=== PATIENT | male | born 1985 | race Caucasian/White ===

== ENCOUNTER 2019-07-08 09:53 | Observation (INO) ==
[2019-07-08] MEDS ORDERED: LABETALOL HCL IV 5 MG/ML 20ML IV STA ×2 (10:37→11:41)
[2019-07-08] MEDS ORDERED: OXYMETAZOLINE 0.05% 30 ML BTL ONE (10:42)
--- NOTE | 2019-07-08 10:44 | Emergency Department Note ---
History of Present Illness General Chief complaint: Hypertension Stated complaint: nose bleed/ [facility] Time Seen by Provider: 07/08/19 10:25 History of Present Illness This is a 34-year-old male that presents to the emergency department accompanied by 2 correctional officers from [facility] where he is currently incarcerated. He presents today over concerns of epistaxis/hypertension. Patient notes that he typically takes lisinopril but has not taken this since 21 June. He states that since the lockdown from [facility] he was unsure about obtaining this medication and therefore was unable to take it. He states that around 3 AM today he began with a headache, and right-sided epistaxis. No known trauma or injury. He also notes some slight blurry vision in the left eye which is chronic but is slightly worsening over the past few days. He denies any current chest pain. Home Medications Home Medications Medication Instructions Recorded Confirmed Type carvedilol 12.5 mg PO BID 07/08/19 07/08/19 History furosemide [Lasix] 80 mg PO DAILY 07/08/19 07/08/19 History insulin NPH isoph U-100 human 12 unit SUBCUT BID 07/08/19 07/08/19 History [Novolin N Flexpen] lisinopril 20 mg PO DAILY 07/08/19 07/08/19 History Allergies Allergy/AdvReac Type Severity Reaction Status Date / Time No Known Allergies Allergy Unverified 07/08/19 11:51 Past Med/Surg History Medical History Abnormal EKG (Acute) CHF (congestive heart failure) Congenital heart anomaly Diabetes mellitus, type II Glaucoma HLD (hyperlipidemia) HTN (hypertension) Psoriasis Surgical History History of cardiac catheterization History of esophagogastroduodenoscopy (EGD) Family History Other Diabetes Hypertension Social History Preferred Language: Pakistani Communication Ability: Effective Video Operator Required: No Beliefs That Will Affect Care: None Current Living Situation: Other Current Living Situation Comment: [facility] Other Information That Helps Us Care for You: No Feels Safe at Home: Yes Safety Concerns: Feels Safe At This Time Smoking Status: Former smoker Do You Dip or Chew Tobacco: No ; Second Hand Exposure: No ; Tobacco Cessation Education Requested by Patient: No Hx Alcohol Use: No Hx Substance Use: Yes substance use type: does not use and crack/cocaine Last Used Substance Other:: Last used 1 year ago Review of Systems A total of 10 systems reviewed and were otherwise negative Physical Exam Vital Signs Vital Signs - 24 hr 07/08/19 11:30 07/08/19 11:45 07/08/19 12:00 Pulse Rate 100 H 107 H 105 H Pulse Rate [Apical] Pulse Rate from SpO2 Sensor 100 H 106 H 105 H Respiratory Rate 21 23 14 Respiratory Effort / Characteristics Respiratory Depth Respiratory Pattern Blood Pressure 160/112 H 146/99 H 170/118 H Blood Pressure [Right Arm] Blood Pressure Mean 125 106 132 Blood Pressure Mean [Right Arm] Pulse Oximetry 96 97 97 Oxygen Delivery Method 07/08/19 12:15 07/08/19 12:30 07/08/19 12:53 Pulse Rate 103 H 102 H 104 H Pulse Rate [Apical] Pulse Rate from SpO2 Sensor 103 H 103 H 105 H Respiratory Rate 20 17 18 Respiratory Effort / Characteristics Respiratory Depth Respiratory Pattern Blood Pressure 143/100 H 151/106 H 153/95 H Blood Pressure [Right Arm] Blood Pressure Mean 106 112 121 Blood Pressure Mean [Right Arm] Pulse Oximetry 96 96 97 Oxygen Delivery Method 07/08/19 13:00 07/08/19 13:10 07/08/19 13:15 Pulse Rate 105 H 105 H Pulse Rate [Apical] 106 H Pulse Rate from SpO2 Sensor 105 H 105 H Respiratory Rate 24 20 17 Respiratory Effort / Characteristics Non-Labored Spontaneous Respiratory Depth Normal Respiratory Pattern Regular Blood Pressure 159/95 H 172/122 H Blood Pressure [Right Arm] 172/122 H Blood Pressure Mean 108 134 Blood Pressure Mean [Right Arm] 138 Pulse Oximetry 97 97 96 Oxygen Delivery Method Room Air 07/08/19 13:27 07/08/19 13:30 Pulse Rate 107 H 108 H Pulse Rate [Apical] Pulse Rate from SpO2 Sensor 107 H 108 H Respiratory Rate 24 23 Respiratory Effort / Characteristics Respiratory Depth Respiratory Pattern Blood Pressure 145/93 H 147/100 H Blood Pressure [Right Arm] Blood Pressure Mean 111 114 Blood Pressure Mean [Right Arm] Pulse Oximetry 98 98 Oxygen Delivery Method VITAL SIGNS - Vital signs and nursing notes were reviewed. Hypertensive, tachycardic. GENERAL -34-year-old male appearing his stated age who is in no acute distress. Communicates well with provider and answers questions appropriately. SKIN - Without rashes. No meningeal or petechial rash. HEAD - NC/AT. EYES - PERRL with EOMI bilaterally. Sclera anicteric. EARS - No deformities of external structures noted on gross examination bilaterally. NOSE - Midline and without cyanosis. There is right-sided epistaxis noted with packing in the right nose with an occlusive cover. There is some blood trickling in the posterior pharynx. No offending vessel is appreciated and upon further inspection this appears to be a posterior bleed. MOUTH/OROPHARYNX - Without perioral cyanosis. Buccal mucosa pink and moist and without leukoplakia. Tongue midline with equal elevation of palate bilaterally. No tonsillar hypertrophy, erythema, or exudates noted. Good dentition noted. NECK - Neck with FROM. No nuchal rigidity. LUNGS - Chest wall symmetric without accessory muscle use, intercostals re tractions, or central cyanosis. Normal vesicular breath sounds CTA B/L. No wheezes, rales, or rhonchi appreciated. CARDIAC - RRR with S1/S2. No murmur, rubs, or gallops appreciated. ABDOMEN - Abdominal contour normal without pulsations or visible masses. BS normoactive all four quadrants. No tenderness, palpable masses, hepatosplenomegaly, or ascites noted. EXTREMITIES - No clubbing or peripheral cyanosis. No pretibial edema present. +5/5 strength noted in UE/LE bilaterally. NEUROLOGIC - Cranial nerves II through XII grossly intact. Sensory intact to light touch throughout. PSYCH - A&Ox3 and cooperates fully with examiner. Pt is very pleasant and interacts well with examiner. An Automated Tonometer was utilized to obtain bilateral orbital pressures. The pressures in the right eye were found to be 14, 16 with an average of 15. The pressures in the left eye were found to be , 15,17 with an average of 16. Patient tolerated the procedure well and no complications were met. Course Administered Medications Acetaminophen (Tylenol) 650 mg PO Q4H PRN PRN Reason: Pain or Fever Stop: 08/07/19 15:09 Last Admin: 07/08/19 21:28 Dose: 650 mg Documented by: [id number] Amoxicillin/Clavulanate Potassium (Augmentin 875mg) 1 tab PO BIDM [facility] Stop: 07/13/19 16:59 Last Admin: 07/09/19 07:55 Dose: 1 tab Documented by: [id number] Admin: 07/08/19 17:18 Dose: 1 tab Documented by: [id number] Carvedilol (Coreg) 12.5 mg PO BID [facility] Stop: 08/07/19 20:59 Last Admin: 07/09/19 07:55 Dose: 12.5 mg Documented by: [id number] Admin: 07/08/19 21:21 Dose: 12.5 mg Documented by: [id number] Furosemide (Lasix) 80 mg PO DAILY [facility] Stop: 08/08/19 08:59 Last Admin: 07/09/19 07:56 Dose: 80 mg Documented by: [id number] Hydromorphone HCl (Dilaudid) 0.5 mg IV Q8H PRN PRN Reason: Severe Pain Stop: 07/22/19 18:05 Last Admin: 07/09/19 04:43 Dose: 0.5 mg Documented by: [id number] Insulin Aspart (Novolog Flexpen) 0 units SC ACHS [facility] Stop: 08/07/19 16:29 Last Admin: 07/09/19 09:08 Dose: Not Given Documented by: [id number] Cosigned by: [id number] Admin: 07/08/19 21:21 Dose: 2 units Documented by: [id number] Cosigned by: [id number] Admin: 07/08/19 17:17 Dose: 8 units Documented by: [id number] Cosigned by: [id number] Insulin Human NPH (Novolin N Nph) 14 units SC BIDM [facility] Stop: 08/07/19 16:59 Last Admin: 07/09/19 09:08 Dose: Not Given Documented by: [id number] Admin: 07/08/19 17:18 Dose: 14 units Documented by: [id number] Cosigned by: [id number] Lisinopril (Zestril) 20 mg PO DAILY [facility] Stop: 08/08/19 08:59 Last Admin: 07/09/19 07:55 Dose: 20 mg Documented by: [id number] Discontinued Medications Amoxicillin/Clavulanate Potassium (Augmentin 875mg) 1 tab PO NOW ONE Stop: 07/08/19 12:39 Last Admin: 07/08/19 13:26 Dose: 1 tab Documented by: [id number] Carvedilol (Coreg) 12.5 mg PO NOW ONE Stop: 07/08/19 13:51 Last Admin: 07/08/19 14:00 Dose: 12.5 mg Documented by: [id number] Furosemide (Lasix) 40 mg PO NOW ONE Stop: 07/08/19 13:51 Last Admin: 07/08/19 14:00 Dose: 40 mg Documented by: [id number] Insulin Aspart (Novolog Flexpen) 0 units SC 0000,0400 PHYLLIS Stop: 07/09/19 04:01 Last Admin: 07/09/19 04:49 Dose: 2 units Documented by: [id number] Cosigned by: [id number] Admin: 07/08/19 23:29 Dose: Not Given Documented by: [id number] Cosigned by: [id number] Insulin Human NPH (Novolin N Nph) 8 units SC ONE ONE Stop: 07/09/19 09:01 Last Admin: 07/09/19 09:09 Dose: 8 units Documented by: [id number] Cosigned by: [id number] Labetalol HCl (Normodyne) 10 mg IV NOW STA Stop: 07/08/19 10:38 Last Admin: 07/08/19 10:56 Dose: 10 mg Documented by: [id number] Cosigned by: [id number] Labetalol HCl (Normodyne) 10 mg IV NOW STA Stop: 07/08/19 11:42 Last Admin: 07/08/19 12:56 Dose: Not Given Documented by: [id number] Lidocaine HCl (Xylocaine 4% Inh Soln) Confirm Administered Dose 4 ml .ROUTE .STK-MED ONE Stop: 07/08/19 11:51 Last Admin: 07/08/19 12:04 Dose: 4 ml Documented by: [id number] Lisinopril (Zestril) 20 mg PO NOW ONE Stop: 07/08/19 13:49 Last Admin: 07/08/19 13:59 Dose: 20 mg Documented by: [id number] Oxymetazoline HCl (Afrin 0.05%) 1 sprays NA NOW ONE Stop: 07/08/19 10:43 Last Admin: 07/08/19 10:56 Dose: 150 sprays Documented by: [id number] Critical Care Time Total Critical Care Time: 35 Patient presents with significant hypertension with associated elevated troponin, headache, abnormal EKG, and epistaxis. I have personally spent about 35 minutes of critical care time in the direct management of this patient. This includes bedside care, interpretation of diagnostic studies, and testing, discussion with consultants, patient, and family members, and other required patient management activities. This 35 minutes is in excess of all separately billable procedures. Medical Decision Making Laboratory Data Result diagrams: 07/09/19 05:28 07/09/19 05:28 Lab Results 07/08/19 07/08/19 07/08/19 Range/Units 10:46 10:46 10:46 WBC 7.90 (4.8-10.8) K/uL RBC 3.80 L (4.7-6.1) M/uL Hgb 11.9 L (14.0-18.0) g/dL Hct 32.8 L (42-52) % MCV 86.3 (80-100) fL MCH 31.3 (25-34) pg MCHC 36.3 H (32-36) g/dL RDW Std Deviation 41.1 (36.4-46.3) fL RDW Coeff of Wendy 13.2 (11.5-14.5) % Plt Count 246 (130-400) K/uL MPV 10.2 (7.4-10.4) fL Immature Gran % (Auto) 0.1 % Neut % (Auto) 71.5 % Lymph % (Auto) 17.8 % Calhoun % (Auto) 8.5 % Eos % (Auto) 1.6 % Baso % (Auto) 0.5 % Immature Gran # (Auto) 0.01 (0.00-0.02) K/uL Neut # (Auto) 5.64 (1.4-6.5) K/uL Lymph # (Auto) 1.41 (1.2-3.4) K/uL [place]oun # (Auto) 0.67 H (0.11-0.59) K/uL Eos # (Auto) 0.13 (0-0.5) K/uL Baso # (Auto) 0.04 (0-0.2) K/uL PT 11.3 (9.0-12.0) Seconds INR 1.1 (0.9-1.1) APTT 25.0 (21.0-31.0) Seconds PTT Ratio 0.9 Sodium 139 (136-145) mmol/L Potassium 4.1 (3.5-5.1) mmol/L Chloride 107 (98-107) mmol/L Carbon Dioxide 25 (21-32) mmol/L Anion Gap 7.0 (3-11) BUN 28 H (7-18) mg/dl Creatinine 1.13 (0.6-1.4) mg/dl Est Cr Clr Drug Dosing 99.0 ml/min Est GFR ( Amer) 98.4 Est GFR (Non-Af Amer) 84.9 BUN/Creatinine Ratio 25.0 H (10-20) Glucose 298 H (70-99) mg/dl Calcium 8.3 L (8.5-10.1) mg/dl Magnesium 1.9 (1.8-2.4) mg/dl Total Bilirubin 0.8 (0.2-1) mg/dl AST 15 (15-37) U/L ALT 21 (12-78) U/L Alkaline Phosphatase 97 (45-117) U/L Troponin I 0.058 H* (0-0.045) ng/ml Total Protein 6.3 L (6.4-8.2) gm/dl Albumin 3.1 L (3.4-5.0) gm/dl Globulin 3.2 (2.5-4.0) gm/dl Albumin/Globulin Ratio 1.0 (0.9-2) TSH 3.790 (0.300-4.500) uIu/ml Urine Color Urine Appearance (Clear) Urine pH (4.5-7.5) Ur Specific [place] (1.000-1.030) Urine Protein (Negative) Urine Glucose (UA) (Negative) Urine Ketones (Negative) Urine Blood (Negative) Urine Nitrite (Negative) Urine Bilirubin (Negative) Urine Urobilinogen (Negative) Ur Leukocyte Esterase (Negative) Urine WBC (Auto) (0-5) /hpf Urine RBC (Auto) (0-4) /hpf U Hyaline Cast (Auto) (0-5) /lpf U Epithel Cells (Auto) (0-5) /lpf Urine Bacteria (Auto) (Negative) 07/08/19 Range/Units 12:51 WBC (4.8-10.8) K/uL RBC (4.7-6.1) M/uL Hgb (14.0-18.0) g/dL Hct (42-52) % MCV (80-100) fL MCH (25-34) pg MCHC (32-36) g/dL RDW Std Deviation (36.4-46.3) fL RDW Coeff of Wendy (11.5-14.5) % Plt Count (130-400) K/uL MPV (7.4-10.4) fL Immature Gran % (Auto) % Neut % (Auto) % Lymph % (Auto) % [place] % (Auto) % Eos % (Auto) % Baso % (Auto) % Immature Gran # (Auto) (0.00-0.02) K/uL Neut # (Auto) (1.4-6.5) K/uL Lymph # (Auto) (1.2-3.4) K/uL [place] # (Auto) (0.11-0.59) K/uL Eos # (Auto) (0-0.5) K/uL Baso # (Auto) (0-0.2) K/uL PT (9.0-12.0) Seconds INR (0.9-1.1) APTT (21.0-31.0) Seconds PTT Ratio Sodium (136-145) mmol/L Potassium (3.5-5.1) mmol/L Chloride (98-107) mmol/L Carbon Dioxide (21-32) mmol/L Anion Gap (3-11) BUN (7-18) mg/dl Creatinine (0.6-1.4) mg/dl Est Cr Clr Drug Dosing ml/min Est GFR ( Amer) Est GFR (Non-Af Amer) BUN/Creatinine Ratio (10-20) Glucose (70-99) mg/dl Calcium (8.5-10.1) mg/dl Magnesium (1.8-2.4) mg/dl Total Bilirubin (0.2-1) mg/dl AST (15-37) U/L ALT (12-78) U/L Alkaline Phosphatase (45-117) U/L Troponin I (0-0.045) ng/ml Total Protein (6.4-8.2) gm/dl Albumin (3.4-5.0) gm/dl Globulin (2.5-4.0) gm/dl Albumin/Globulin Ratio (0.9-2) TSH (0.300-4.500) uIu/ml Urine Color Yellow Urine Appearance Clear (Clear) Urine pH 5.0 (4.5-7.5) Ur Specific [place] 1.042 H (1.000-1.030) Urine Protein 2+ H (Negative) Urine Glucose (UA) 3+ H (Negative) Urine Ketones 1+ H (Negative) Urine Blood Negative (Negative) Urine Nitrite Negative (Negative) Urine Bilirubin Negative (Negative) Urine Urobilinogen Negative (Negative) Ur Leukocyte Esterase Negative (Negative) Urine WBC (Auto) 1-5 (0-5) /hpf Urine RBC (Auto) 0-4 (0-4) /hpf U Hyaline Cast (Auto) 1-5 (0-5) /lpf U Epithel Cells (Auto) 0-5 (0-5) /lpf Urine Bacteria (Auto) Negative (Negative) Imaging Data Radiologist's Impression: XR chest 1V portable CLINICAL HISTORY: 34 years-old Male presenting with htn, headache. TECHNIQUE: Portable upright AP view of the chest was obtained. COMPARISON: None. FINDINGS: Cardiomediastinal silhouette normal. No focal opacity. No large effusion or pneumothorax. Osseous structures normal. Upper abdomen normal. IMPRESSION: 1. No acute cardiopulmonary disease. ACT 112: Negative or not required by law. Electronically signed by: Adrian Phillips M.D. 07/08/2019 11:[address] head/brain wo con CLINICAL HISTORY: 34 years-old Male presenting with headache, htn, epistaxis sin ce 3:00 AM. TECHNIQUE: Multidetector CT imaging of the head was performed without the use of intravenous contrast. IV contrast: None. One or more dose lowering techniques were used consistent with the principles of ALARA (as low as reasonably achievable), including automatic exposure control, mA or kV adjustment to individual patient size, and/or use of iterative reconstruction. COMPARISON: None. CT DOSE (mGy.cm): The estimated cumulative dose is 614.27 mGy.cm. FINDINGS: Sales Analyst topogram: The patient is edentulous. Ventricles and sulci normal in size. No hemorrhage. Brain parenchyma normal in appearance with preserved lynn-white differentiation. No acute territorial infarct. No mass effect or midline shift. No extra-axial fluid collection. Aerated secretions in the right maxillary sinus. These are also noted in the right ethmoid air cells. Calvarium intact. IMPRESSION: 1. No acute intracranial abnormality. 2. Aerated secretions in the right maxillary sinus and right ethmoid air cells may relate to the reported epistaxis or indicate acute sinusitis. ACT 112: Negative or not required by law. Electronically signed by: Adrian Phillips M.D. 07/08/2019 12:46 PM MDM Narrative Patient was seen and evaluated as above in room in room C5. Review was performed of nursing notes and vital signs. After obtaining a thorough history and physical examination the above work up was performed. He presents to us today with epistaxis from the right, as well as hypertension. EKG was obtained on arrival and reveals sinus tachycardia at a rate of [address] and T wave changes but no evidence of STEMI. QTc 469. Patient has no chest pain at this time. In regard to the epistaxis, it was felt that this is likely secondary to the severe hypertension and it would be best to lower the pressure in conjunction with managing the epistaxis. 10 mg of IV labetalol was ordered. He was reevaluated with some improvement. There is no emergent finding on CBC or metabolic panel other than the troponin was elevated at 0.058. Urinalysis does not suggest infection. I did discuss with the patient options of epistaxis treatment and I will note that he continues to have active epistaxis here despite blood pressure management. I discussed indication of the packing and benefit versus risk discussed and it was decided to pursue with right-sided nasal packing with a rapid Rhino. Consent obtained. Given that this was likely a posterior bleed as no source was found on exam and this appeared to be beeding quite deep in the nasal cavity with associated blood noted in the posterior oropharynx a 7.5 cm rapid Rhino was chosen. I did trial a course of Afrin in the affected side as well as a small amount of lidocaine and then the 7.5 similar rapid Rhino was placed after no relief with nose clamp and Afrin. This was able to achieve hemostasis. No complications were noted. No significant pain. This was inflated to 4 cc of air. P.o. Augmentin ordered to help prevent infection. Chest x-ray and CT scan of the head revealed no emergent process. There are some aerated secretions in the right maxillary sinus and ethmoid air cells which are likely from the epistaxis as he has no other symptoms to suggest that of acute sinusitis. I will also note that the CT scan was obtained after nasal packing was placed. Given the patient's troponin elevation and evidence of hypertensive emergency it is felt that further evaluation and management is warranted in the inpatient setting. Please refer to further documentation rega rding his stay. While in the department, I personally reevaluated the patient several times and each time the patient was found to be resting comfortably. Case discussed with the attending physician as well as the hospitalist. Please refer to further documentation regarding his stay. GCS: 15 In the evaluation and treatment of this patient, the following differential diagnoses were considered: Concussion, Contrecoup Injury, Brain Tumor, Depression, Encephalitis, Hypothyroidism, Meningitis, CVA, TIA, Migraine, Cluster Headache, Intracranial Abnormality, Intracranial Hemorrhage, Subdural Hematoma, Subarachnoid Hemorrhage, Hydrocephalus, nasal trauma, fracture, sinusitis, mass, OH, ASC, Dysrhythmia, Angina, Mediastinitis, GERD, Esophagitis, PE, Pneumonia, coronavirus, among others Impression & Plan Hypertensive emergency, Abnormal EKG, Epistaxis, Elevated troponin Discharge Plan Visit Data *Final* Discharge Date/Time: 07/08/19 14:08 Chief Complaint: Hypertension Stated Complaint: nose bleed/ [facility] ED Provider: Vidal Moran ED Midlevel Provider: Yash Cochran Discharge Problem: Hypertensive emergency, Abnormal EKG, Epistaxis, Elevated troponin Patient Disposition: Admitted As Inpatient Condition: Good Discharge Instructions Interventions: ED Discharge Assessment Last Done: 07/08/19 14:08
[2019-07-08 10:58] LABS: Basophils # (auto) 0.04 K/uL (0-0.2); Basophils % (auto) 0.5 %; Eosinophils # (auto) 0.13 K/uL (0-0.5); Eosinophils % (auto) 1.6 %; Hematocrit (blood only) 32.8 % (42-52); Hemoglobin 11.9 g/dL (14.0-18.0); Immature Granulocytes # (auto) 0.01 K/uL (0.00-0.02); Immature Granulocytes % (auto) 0.1 %; Lymphocytes # (auto) 1.41 K/uL (1.2-3.4); Lymphocytes % (auto) 17.8 %; Mean Corpuscular Hemoglobin 31.3 pg (25-34); Mean Corpuscular Hgb Conc 36.3 g/dL (32-36); Mean Corpuscular Volume 86.3 fL (80-100); Mean Platelet Volume 10.2 fL (7.4-10.4); Monocytes # (auto) 0.67 K/uL (0.11-0.59); Monocytes % (auto) 8.5 %; Neutrophils # (auto) 5.64 K/uL (1.4-6.5); Neutrophils % (auto) 71.5 %; Platelet Count 246 K/uL (130-400); RDW Coefficient of Variation 13.2 % (11.5-14.5); RDW Standard Deviation 41.1 fL (36.4-46.3)
--- NOTE | 2019-07-08 11:02 | XRay Report ---
XR chest 1V portable CLINICAL HISTORY: 34 years-old Male presenting with htn, headache. TECHNIQUE: Portable upright AP view of the chest was obtained. COMPARISON: None. FINDINGS: Cardiomediastinal silhouette normal. No focal opacity. No large effusion or pneumothorax. Osseous str uctures normal. Upper abdomen normal. IMPRESSION: 1. No acute cardiopulmonary disease. ACT 112: Negative or not required by law. Electronically signed by: Adrian Phillips M.D. 07/08/2019 11:01 AM
[2019-07-08 11:14] LABS: INR 1.1 (0.9-1.1); Partial Thromboplastin Ratio 0.9; Prothrombin Time 11.3 Seconds (9.0-12.0)
[2019-07-08 11:15] LABS: Albumin Level 3.1 gm/dl (3.4-5.0); Calcium 8.3 mg/dl (8.5-10.1); Est GFR (African American) 98.4; Est GFR (Non-African American) 84.9; Magnesium 1.9 mg/dl (1.8-2.4); Potassium 4.1 mmol/L (3.5-5.1)
[2019-07-08 11:27] LABS: Bilirubin,Total 0.8 mg/dl (0.2-1); Globulin 3.2 gm/dl (2.5-4.0); Thyroid Stimulating Hormone 3.79 uIu/ml (0.300-4.500); Total Protein 6.3 gm/dl (6.4-8.2); Troponin I 0.058 ng/ml (0-0.045)
[2019-07-08] MEDS ORDERED: LIDOCAINE 4% INH SOLN 4 ML BTL ONE (11:50)
--- NOTE | 2019-07-08 12:25 | Electrocardiogram Report ---
Test Reason : Blood Pressure : / mmHG Vent. Rate : 119 BPM Atrial Rate : 119 BPM P-R Int : 140 ms QRS Dur : 072 ms QT Int : 334 ms P-R-T Axes : 024 006 155 degrees QTc Int : 469 ms Poor data quality, interpretation may be adversely affected Sinus tachycardia Abnormal ECG No previous ECGs available Confirmed by Otf Jessica ([id number] on 07/08/2019 12:24:58 PM Referred By: [facility] Confirmed By:Otf Jessica
[2019-07-08] MEDS ORDERED: AMOXICILLIN/CLAVULANATE 875 MG TAB PO ONE (12:38)
--- NOTE | 2019-07-08 12:47 | CT Scan Report ---
CT head/brain wo con CLINICAL HISTORY: 34 years-old Male presenting with headache, htn, epistaxis since 3:00 AM. TECHNIQUE: Multidetector CT imaging of the head was performed without the use of intravenous contrast . IV contrast: None. One or more dose lowering techniques were used consistent with the principles of ALARA (as low as reasonably achievable), including automatic exposure control, mA or kV adjustment t o individual patient size, and/or use of iterative reconstruction. COMPARISON: None. CT DOSE (mGy.cm): The estimated cumulative dose is 614.27 mGy.cm. FINDINGS: Chainer topogram: The patient is edentulous. Ventricles and sulci normal in size. No hemorrhage. Brain parenchyma normal in appearance with preser daniele lynn-white differentiation. No acute territorial infarct. No mass effect or midline shift. No ext ra-axial fluid collection. Aerated secretions in the right maxillary sinus. These are also noted in t he right ethmoid air cells. Calvarium intact. IMPRESSION: 1. No acute intracranial abnormality. 2. Aerated secretions in the right maxillary sinus and right ethmoid air cells may relate to the rep orted epistaxis or indicate acute sinusitis. ACT 112: Negative or not required by law. Electronically signed by: Adrian Phillips M.D. 07/08/2019 12:46 PM
[2019-07-08 13:11] LABS: Appearance Urine Clear (Clear); Bacteria Urine Automated Negative (Negative); Bilirubin Urine Negative (Negative); Blood Urine Negative (Negative); Color Urine Yellow; Epithelial Cell Urine Auto 0-5 /lpf (0-5); Glucose Urine UA 3+ (Negative); Ketones Urine 1+ (Negative); Leukocyte Esterase Urine Negative (Negative); Nitrite Urine Negative (Negative); Protein Urine 2+ (Negative); RBC Urine Automated 0-4 /hpf (0-4); Specific Gravity Urine 1.042 (1.000-1.030); Urobilinogen Urine Negative (Negative)
[2019-07-08] MEDS ORDERED: lisinopriL 20 MG TAB PO ONE (13:48)
[2019-07-08] MEDS ORDERED: carvediloL 12.5 MG TAB PO ONE (13:50)
[2019-07-08] MEDS ORDERED: FUROSEMIDE 40 MG TAB PO ONE (13:50)
--- NOTE | 2019-07-08 13:54 | History & Physical Report ---
Date of Service July 08, 2019 Assessment & Plan (1) Hypertensive emergency: H/O HTN Pt is 34 y/o M with PMH HTN, HLD, insulin-dependent DM II, CHF, congenital heart anomaly, psoriasis, glaucoma presented to ER from [facility] for epistaxis and HTN. Not been taking BP meds x 1 month. Today 3 AM started with right-sided epistaxis. Also c/o dull MONTOYA. Has chronic blurry vision to left eye however feels increased blurriness to left eye this morning. Denies chest pain, dizziness, syncope, paresthesias. In ER pt afebrile, P: 123 down to 105, R: 24 down to 14, BP: 192/137 down to 145/93, 97% on RA. Troponin: 0.058, EKG sinus tachycardia, t wave inversion lateral leads (no prior for comparison) CT head: No acute intracranial abnormality. CXR: No acute cardiopulmonary disease. -In ER given labetalol 10mg IV -Pt has not been taking BP meds x 1 month -Restart lisinopril, carvedilol, lasix -Monitor on tele -Monitor BP closely -BMP in am (2) Epistaxis: CT Head: Aerated secretions in the right maxillary sinus and right ethmoid air cells may relate to the reported epistaxis or indicate acute sinusitis. H/H: 11.9/32, Plt: 246, normal co-ags -In ER rapid rhino placed to right nare with control of bleeding at this time -In ER started on Augmentin -Will continue Augmentin for prophylaxis -Repeat CBC tonight -ENT consult for assistance with rapid rhino and removal when appropriated (3) Abnormal EKG: EKG sinus tachycardia, t wave inversion lateral leads (no prior for comparison) Pt reports h/o abnormal EKG -Trend troponin (4) Diabetes mellitus, type II: Pt reports has not been compliant with -Hold home insulin -Novolog, Lantus sliding scale per protocol -A1c in AM (5) CHF (congestive heart failure): Reported h/o CHF Does not appear volume overloaded at this time -Continue lasix DVT Prophylaxis -Low risk - ambulate Full Code as per discussion with pt Follows with Medical at [facility] for routine care Pt was seen and care coordinated with Dr Luo. See addendum History of Present Illness Chief Complaint: Epistaxis, elevated BP Primary Care Provider: [facility] Pt is 34 y/o M with PMH HTN, HLD, insulin-dependent DM II, CHF, congenital heart anomaly, psoriasis, glaucoma presented to ER from [facility] for epistaxis and HTN. Patient has not been taking his BP meds for the past month because "I've been lazy and not feel like it". Reports he has been using his insulin, however he reports he has not been taking the amounts that the medical team at [facility] have been recommending. BSG is been running 190 to low 100s. Patient states this morning at 3 AM started with right-sided epistaxis that was continuous. Patient states this morning around 6 AM developed dull headache. He reports chronic blurry vision to left eye however feels increased blurriness to left eye this morning. Patient states this morning felt a little shortness of breath. Denies chest pain, dizziness, syncope, paresthesias. Reports last week had epistaxis that resolved with pressure. Denies picking nose or any nasal or facial injury. Denies fever/chills, diaphoresis, N/V/D/C, neck pain, CP, orthopnea, palpitations, cough, sore throat, choking, otalgia, rhinorrhea, abdominal pain, weakness, extremity weakness, extremity edema, rashes, urinary symptoms. Allergies Allergy/AdvReac Type Severity Reaction Status Date / Time No Known Allergies Allergy Unverified 07/08/19 11:51 Home Medications Home Medications Medication Instructions Recorded Confirmed Type carvedilol 12.5 mg PO BID 07/08/19 07/08/19 History furosemide [Lasix] 80 mg PO DAILY 07/08/19 07/08/19 History insulin NPH isoph U-100 human 12 unit SUBCUT BID 07/08/19 07/08/19 History [Novolin N Flexpen] lisinopril 20 mg PO DAILY 07/08/19 07/08/19 History Past Med/Surg History Medical History (Updated 07/08/19 @ 14:01 by Rosa Gonsales PA-C) Abnormal EKG CHF (congestive heart failure) Congenital heart anomaly Diabetes mellitus, type II Glaucoma HLD (hyperlipidemia) HTN (hypertension) Psoriasis Surgical History (Updated 07/08/19 @ 13:44 by Rosa Gonsales PA-C) History of cardiac catheterization History of esophagogastroduodenoscopy (EGD) Family History (Updated 07/08/19 @ 13:54 by Rosa Gonsales PA-C) Other Diabetes Hypertension Social History (Updated 07/08/19 @ 13:55 by Rosa Gonsales PA-C) Preferred Language: Italian Communication Ability: Effective Hot Press Operator Required: No Beliefs That Will Affect Care: None Current Living Situation: Other Current Living Situation Comment: [facility] Other Information That Helps Us Care for You: No Feels Safe at Home: Yes Safety Concerns: Feels Safe At This Time Smoking Status: Former smoker Do You Dip or Chew Tobacco: No ; Second Hand Exposure: No ; Tobacco Cessation Education Requested by Patient: No Hx Alcohol Use: No Hx Substance Use: Yes substance use type: does not use and crack/cocaine Last Used Substance Other:: Last used 1 year ago Review of Systems Review of Systems: All systems reviewed & are unremarkable except as noted in HPI & below Physical Exam Physical Exam: General: no distress, WDWN Head: normocephalic, atraumatic Eyes: PERRL, EOM's intact, conjunctiva non-injected, anicteric ENT: normal inspection external ears, Right nare with rapid rhino in place with no active bleeding surrounding, left nare without epistaxis, posterior pharynx with scant red blood, mucous membranes moist Neck: supple, trachea midline Lungs: clear, no respiratory distress, no wheezing/rhonchi/rales CV: RRR, no murmur, no pretibial edema Abd: normal BS, soft, non-tender Ext: no cyanosis, no calf tenderness Neuro: A&O x 3, no focal deficits noted, normal affect Skin: warm, dry; +scattered pink plaques to arms, legs, back, chest Results & Data Results & Data ([facility]) Vital Signs (Past 12 Hours) Vital Signs Temp Pulse Pulse Resp BP BP Pulse Ox 07/08/19 13:30 108 H 23 147/100 H 98 07/08/19 13:27 107 H 24 145/93 H 98 07/08/19 13:15 105 H 17 172/122 H 96 07/08/19 13:10 106 H 20 172/122 H 97 07/08/19 13:00 105 H 24 159/95 H 97 07/08/19 12:53 104 H 18 153/95 H 97 07/08/19 12:30 102 H 17 151/106 H 96 07/08/19 12:15 103 H 20 143/100 H 07/08/19 12:00 105 H 14 170/118 H 97 07/08/19 11:45 107 H 23 146/99 H 07/08/19 11:30 100 H 21 160/112 H 07/08/19 11:15 100 H 20 161/116 H 97 07/08/19 11:08 101 H 20 157/106 H 07/08/19 11:02 102 H 17 96 07/08/19 11:01 107 H 22 157/106 H 07/08/19 11:00 118 H 21 163/114 H 07/08/19 10:58 121 H 23 182/126 H 07/08/19 10:51 124 H 20 96 07/08/19 10:30 122 H 20 178/120 H 96 07/08/19 10:04 37.4 C 118 H 20 192/137 H 96 07/08/19 10:03 123 H 24 192/137 H 97 Laboratory Results Short CBC 07/08/19 Range/Units 10:46 WBC 7.90 (4.8-10.8) K/uL Hgb 11.9 L (14.0-18.0) g/dL Hct 32.8 L (42-52) % Plt Count 246 (130-400) K/uL BMP 07/08/19 10:46 Sodium 139 Potassium 4.1 Chloride 107 Carbon Dioxide 25 BUN 28 H Creatinine 1.13 Glucose 298 H Calcium 8.3 L Cardiac Enzymes 07/08/19 Range/Units 10:46 Troponin I 0.058 H* (0-0.045) ng/ml Liver Function 07/08/19 Range/Units 10:46 Total Bilirubin 0.8 (0.2-1) mg/dl AST 15 (15-37) U/L ALT 21 (12-78) U/L Alkaline Phosphatase 97 (45-117) U/L Albumin 3.1 L (3.4-5.0) gm/dl Urine 07/08/19 Range/Units 12:51 Urine Color Yellow Urine Appearance Clear (Clear) Urine pH 5.0 (4.5-7.5) Ur Specific [place] 1.042 H (1.000-1.030) Urine Protein 2+ H (Negative) Urine Glucose (UA) 3+ H (Negative) Diagnostic Findings CXR: IMPRESSION: 1. No acute cardiopulmonary disease. CT HEAD: IMPRESSION: 1. No acute intracranial abnormality. 2. Aerated secretions in the right maxillary sinus and right ethmoid air cells may relate to the reported epistaxis or indicate acute sinusitis. ECG Additional Comments: poor tracing, sinus tachycardia, rate 119, t wave inversion lateral Supervising Physician Co-Signing Physician Notes I, Dr. Nicholas Luo, have seen and examined the patient with physician miller head assistant wet process and would like to comment that On exam: General: no acute distress Nose: right nare with packing Eyes: ocular movements intact, patient reports chronic left eye blurred vision likely from diabetic retinopathy Heart: regular rate Lungs: clear to auscultation bilaterally Abdomen: soft, nontender, positive bowel sounds Extremities: no edema Epistaxis Diabetes Mellitus Type 2 with complications of Diabetic Retinopathy Abnormal EKG History of chronic congestive heart failure -right nare packed in ED, trend CBC, will get ENT consult to follow the patient and ultimately to take out packing when ready as [facility] is from [facility] -patient reports that reports chronic left eye blurred vision have worsened over time as a consequence of diabetes and that in the past because of outpatient diet, his weights have fluctuated -pharmacological consult to manage the diabetes and then perhaps give estimation on discharge insulin dosing -no chest pain symptoms, there are T wave inversions on lateral leads, trend troponins, breathing on room air, no respiratory distress, no clinical signs of fluid overload My colleague Dr. Torres will be the hospitalist for the patient starting on 07/09/2019
[2019-07-08] MEDS ORDERED: CARBOHYDRATES FOR HYPOGLYCEMIA PO PRN (15:10)
[2019-07-08] MEDS ORDERED: GLUCOSE 40% GEL 15 GM TUBE PO PRN (15:10)
[2019-07-08] MEDS ORDERED: GLUCOSE 10 TABS/TUBE PO PRN (15:10)
[2019-07-08] MEDS ORDERED: GLUCAGON FOR INJ 1 MG VIAL SQ PRN (15:10)
[2019-07-08] MEDS ORDERED: DEXTROSE 50% 50 ML SYRINGE IV PRN (15:10)
[2019-07-08] MEDS ORDERED: PHARMACY GLYCEMIC MGMT CONSULT PRN (15:19)
[2019-07-08 16:59] LABS: Hematocrit (blood only) 30.7 % (42-52); Mean Corpuscular Hemoglobin 31.5 pg (25-34); Mean Corpuscular Hgb Conc 35.8 g/dL (32-36); Mean Platelet Volume 9.5 fL (7.4-10.4); Platelet Count 259 K/uL (130-400); RDW Coefficient of Variation 13.4 % (11.5-14.5); RDW Standard Deviation 42.7 fL (36.4-46.3); Red Blood Count 3.49 M/uL (4.7-6.1); White Blood Count 8.62 K/uL (4.8-10.8)
[2019-07-08] MEDS: INSULIN ASPART 100 UNITS/ML 3 ML PEN SC SCH ×3 (17:17→23:29)
[2019-07-08] MEDS: INSULIN HUMAN NPH SC SCH (17:18)
[2019-07-08] MEDS: AMOXICILLIN/CLAVULANATE 875 MG TAB PO SCH (17:18)
[2019-07-08] MEDS: carvediloL 12.5 MG TAB PO SCH (21:21)
[2019-07-08] MEDS: ACETAMINOPHEN 325 MG TAB PO PRN (21:28)
[2019-07-09] MEDS: HYDROmorphone INJ 0.5 MG/0.5 ML SYR IV PRN ×3 (04:43→23:58)
[2019-07-09] MEDS: INSULIN ASPART 100 UNITS/ML 3 ML PEN SC SCH ×6 (04:49→21:45)
[2019-07-09] MEDS ORDERED: ONDANSETRON INJ 2 MG/ML 2 ML VIAL IV PRN (05:01)
[2019-07-09 05:50] LABS: Hematocrit (blood only) 28.7 % (42-52); Hemoglobin 10.4 g/dL (14.0-18.0); Mean Corpuscular Hemoglobin 31.5 pg (25-34); Mean Corpuscular Hgb Conc 36.2 g/dL (32-36); Mean Platelet Volume 10.1 fL (7.4-10.4); Platelet Count 253 K/uL (130-400); RDW Coefficient of Variation 13.6 % (11.5-14.5); RDW Standard Deviation 42.8 fL (36.4-46.3); White Blood Count 8.79 K/uL (4.8-10.8)
[2019-07-09 06:14] LABS: BUN Creatinine Ratio 33.2 (10-20); Calcium 8.6 mg/dl (8.5-10.1); Creatinine Clr Calc Pharmacy 74.1 ml/min; Est GFR (African American) 69.3; Est GFR (Non-African American) 59.8; Potassium 3.8 mmol/L (3.5-5.1)
[2019-07-09 07:01] LABS: Estimated Average Glucose 140 mg/dl; Hemoglobin A1C 6.5 % (4.5-5.6)
--- NOTE | 2019-07-09 07:37 | ENT Consultation ---
Date of Consultation July 09, 2019 Assessment & Plan (1) Epistaxis: Endoscopic cautery and posterior packing later today. History of Present Illness Reason for Consultation: Epistaxis Attending Physician: Nicholas Luo MD History of Present Illness 34-year-old prisoner admitted yesterday with hypertensive crisis and right-sided posterior epistaxis requiring epistatic packing on the right side but continued to have bleeding dropping his hemoglobin another gram this morning to 10.4 and still having some large clots from the posterior pharynx. Because of the persistent bleeding and the dropping H&H endoscopic cautery is indicated. Allergies Allergy/AdvReac Type Severity Reaction Status Date / Time No Known Allergies Allergy Unverified 07/08/19 11:51 Home Medications Home Medications Medication Instructions Recorded Confirmed Type carvedilol 12.5 mg PO BID 07/08/19 07/08/19 History furosemide [Lasix] 80 mg PO DAILY 07/08/19 07/08/19 History insulin NPH isoph U-100 human 12 unit SUBCUT BID 07/08/19 07/08/19 History [Novolin N Flexpen] lisinopril 20 mg PO DAILY 07/08/19 07/08/19 History Patient History Medical History Abnormal EKG (Acute) CHF (congestive heart failure) Congenital heart anomaly Diabetes mellitus, type II Glaucoma HLD (hyperlipidemia) HTN (hypertension) Psoriasis Surgical History History of cardiac catheterization History of esophagogastroduodenoscopy (EGD) Family History Other Diabetes Hypertension Social History Preferred Language: Salvadorean Communication Ability: Effective Gas Torch Brazier Required: No Beliefs That Will Affect Care: None Current Living Situation: Other Current Living Situation Comment: [facility] Other Information That Helps Us Care for You: No Feels Safe at Home: Yes Safety Concerns: Feels Safe At This Time Smoking Status: Former smoker Do You Dip or Chew Tobacco: No ; Second Hand Exposure: No ; Tobacco Cessation Education Requested by Patient: No Hx Alcohol Use: No Hx Substance Use: Yes substance use type: does not use and crack/cocaine Last Used Substance Other:: Last used 1 year ago Physical Exam Constitutional: WD/WN, vitals as above Eyes: PERRL, conjunctivae normal, anicteric sclerae ENMT: Nose: + nare abnormality (Right side has a piece that in place no active bleeding, however he did spit up a moderate sized clot this morning) Neck: trachea midline, no thyromegaly Respiratory: normal respiratory effort, lungs clear to auscultation Cardiovascular: RRR, no murmur, no edema Results & Data ([facility]) Vital Signs (Past 12 Hours) Vital Signs Temp Pulse Pulse Resp BP Pulse Ox 07/09/19 04:27 36.7 C 81 15 111/68 99 07/09/19 02:27 92 H 07/08/19 22:35 36.5 C 100 H 18 115/78 100
[2019-07-09] MEDS: carvediloL 12.5 MG TAB PO SCH ×2 (07:55→20:19)
[2019-07-09] MEDS: AMOXICILLIN/CLAVULANATE 875 MG TAB PO SCH ×2 (07:55→18:00)
[2019-07-09] MEDS ORDERED: lisinopriL 20 MG TAB PO SCH (09:00)
[2019-07-09] MEDS ORDERED: INSULIN HUMAN NPH SC ONE (09:00)
[2019-07-09] MEDS ORDERED: FUROSEMIDE 80 MG TAB PO SCH (09:00)
--- NOTE | 2019-07-09 09:04 | Electrocardiogram Report ---
Test Reason : Blood Pressure : / mmHG Vent. Rate : 099 BPM Atrial Rate : 099 BPM P-R Int : 148 ms QRS Dur : 082 ms QT Int : 374 ms P-R-T Axes : 055 063 186 degrees QTc Int : 479 ms Normal sinus rhythm Prolonged QT Abnormal ECG When compared with ECG of 08-JUL-2019 10:17, No significant change Confirmed by Otf Jessica ([id number]) on 07/09/2019 9:04:08 AM Referred By: [facility] Confirmed By:Otf Jessica
[2019-07-09] MEDS: INSULIN HUMAN NPH SC SCH ×2 (09:08→17:59)
--- NOTE | 2019-07-09 09:36 | Electrocardiogram Report ---
Test Reason : Blood Pressure : / mmHG Vent. Rate : 081 BPM Atrial Rate : 081 BPM P-R Int : 156 ms QRS Dur : 082 ms QT Int : 410 ms P-R-T Axes : 060 057 207 degrees QTc Int : 476 ms Normal sinus rhythm Prolonged QT Abnormal ECG When compared with ECG of 08-JUL-2019 18:06, No significant change was found Confirmed by Otf Jessica ([id number]) on 07/09/2019 9:36:10 AM Referred By: [facility] Confirmed By:Otf Jessica
--- NOTE | 2019-07-09 09:39 | Pharmacy Report ---
Glycemic Control Consultation - Date of Service July 09, 2019 - Scope Scope: Glycemic Pharmacist consulted for glycemic control and to write orders per [facility] inpatient glycemic control protocol. - Objective Weight: 82.1 kg Accuchecks BSG (last 24hrs): Laboratory Data (last 24hrs): 07/08/19 07/09/19 10:46 05:28 Potassium 4.1 3.8 Carbon Dioxide 25 29 Anion Gap 7.0 5.0 Creatinine 1.13 1.51 H D Est Cr Clr Drug Dosing 99.0 74.1 HbA1c: Hemoglobin A1c 6.5 % (4.5-5.6) H 07/09/19 05:28 - Recent Pertinent Medications Outpatient Anti-diabetic Regimen: * Insulin NPH 12 units SQ BID * A1c = 6.5% on 07/09/2019 The patient is currently receiving: * Basal insulin: NPH 14 units SQ BIDM * Correctional Insulin: Novolog Correction per scale ACHS Goal Range: Low 120 mg/dL - High 150 mg/dL Correction Factor: 25 mg/dL/unit * Prandial insulin: Per carb ratio of 1 unit per 8 grams CHO consumed Risk Factors for Insulin Resistance: * Infection: Augmentin 875-125 mg PO BIDM * Diet: T2DM - Assessment & Plan Assessment & Plan: ASSESSMENT: * 34 yo M admitted from [facility] ER secondary to epistaxis and hypertension * Patient is prescribed NPH 12 units SQ BIDM but reports not taking prescribed doses. A1c is well controlled at 6.5%. * Admission BSG was 298 mg/dL. Patient received 14 units of NPH + 10 units of bolus insulin yesterday based on weight and stress of 2. * BSGs over last 24 hours have ranged 135-219 mg/dL * Fasting BSG this am is 147 mg/dL. Spoke with RN, patient is NPO this morning for endoscopic cautery and posterior packing. * Given current BSG and NPO status, will reduce NPH dose ~ 40% this morning. PLAN FOR INPATIENT GLYCEMIC CONTROL: * Basal insulin - reduced * NPH 8 units SQ x 1 this AM * NPH 10 units SQ BIDM * Bolus insulin - no change * NovoLog per scale ACHS or Q6hrs while NPO * Goal Range: Low 120 mg/dL - High 150 mg/dL * Correction Factor: 25 mg/dL/unit * Nutritional / Prandial insulin per carb ratio of 1 unit per 8 grams CHO consumed * Please note that the plan above was derived based on current level of insulin resistance and hospital stress. These recommendations are appropriate for inpatient admission only. Plan of care upon discharge will need to be reassessed to avoid potential outpatient hypo/hyperglycemia. Thank you.
[2019-07-09] MEDS ORDERED: TRIAMCINOLONE ACET 40 MG/ML VIAL ONE (15:02)
[2019-07-09] MEDS ORDERED: BACITRACIN OINT 15 GM TUBE ONE (15:02)
[2019-07-09] MEDS ORDERED: EPINEPHrine INJ 1 MG/ML AMP ONE (15:02)
[2019-07-09] MEDS ORDERED: LIDOCAINE/EPINE 2% 1:100,000 20ML ONE (15:02)
[2019-07-09] MEDS ORDERED: GELATIN SPONGE 12-7MM ONE (15:03)
[2019-07-09] MEDS ORDERED: LIDOCAINE 4% INH SOLN 4 ML BTL ONE (15:03)
--- NOTE | 2019-07-09 15:32 | Anesthesiology Consultation ---
Date of Service July 09, 2019 Assessment & Plan Chart Review Chart Review: Acceptable Risk for Surgery Consults Requested none ASA ASA3 Proposed Anesthesia Anesthesia Type: MAC Risk / Benefits Reviewed With: PT / POA / Parent / Guardian, Accepts Plan and Informed Consent Obtained Additional Comments: GA b/u History Surgery Operation Date: 07/09/19 08:40 Proposed Procedures p Endoscopic Cautery - Hanane Rodriguez MD Height/Weight Height: 5 ft 11 in Weight: 82.1 kg Allergies Allergy/AdvReac Type Severity Reaction Status Date / Time No Known Allergies Allergy Unverified 07/08/19 11:51 Medications Home Medications Medication Instructions Recorded Confirmed Last Taken carvedilol 12.5 mg PO BID 07/08/19 07/08/19 Unknown furosemide [Lasix] 80 mg PO DAILY 07/08/19 07/08/19 Unknown insulin NPH isoph U-100 human 12 unit SUBCUT BID 07/08/19 07/08/19 Unknown [Novolin N Flexpen] lisinopril 20 mg PO DAILY 07/08/19 07/08/19 Unknown Active Medications Generic Name Dose Route Start Last Admin Trade Name Freq PRN Reason Stop Dose Admin Acetaminophen 650 mg 07/08/19 15:10 07/08/19 21:28 Tylenol PO 08/07/19 15:09 650 mg Q4H PRN Administration Pain or Fever Amoxicillin/Clavulanate Potassium 1 tab 07/08/19 17:00 07/09/19 07:55 Augmentin 875mg PO 07/13/19 16:59 1 tab BIDM PHYLLIS Administration Carvedilol 12.5 mg 07/08/19 21:00 07/09/19 07:55 Coreg PO 08/07/19 20:59 12.5 mg BID PHYLLIS Administration Furosemide 80 mg 07/09/19 09:00 07/09/19 07:56 Lasix PO 08/08/19 08:59 80 mg DAILY PHYLLIS Administration Hydromorphone HCl 0.5 mg 07/08/19 18:06 07/09/19 13:27 Dilaudid IV 07/22/19 18:05 0.5 mg Q8H PRN Administration Severe Pain Insulin Aspart 0 units 07/08/19 16:30 07/09/19 12:22 Novolog Flexpen SC 08/07/19 16:29 Not Given ACHS PHYLLIS Lisinopril 20 mg 07/09/19 09:00 07/09/19 07:55 Zestril PO 08/08/19 08:59 20 mg DAILY PHYLLIS Administration NPO Date Last Intake of Fluids: 07/09/19 Time Last Intake of Fluids: 07:00 Date Last Intake of Solids: 07/08/19 Time Last Intake of Solids: 17:00 Past Medical History Medical History (Updated 07/09/19 @ 15:44 by Lis Dawson DO) Abnormal EKG (Acute) CHF (congestive heart failure) No recent exacerbation Congenital heart anomaly Diabetes mellitus, type II Glaucoma HLD (hyperlipidemia) HTN (hypertension) Mild concentric left ventricular hypertrophy (LVH) Psoriasis Exercise / Class Metabolic Activity II 4-5 Yardwork/Stairs/Walk up hill Past Family History Family History Other Diabetes Hypertension Past Surgical History Surgical History History of cardiac catheterization History of esophagogastroduodenoscopy (EGD) Past Anesthesia History No Hx of Anesthesia Complications and No Family Hx of Anesthesia Complications History of PONV No Hx of PONV and No Hx of Motion Sickness Social History Smoking Status: Former smoker Do You Dip or Chew Tobacco: No Hx Alcohol Use: No Hx Substance Use: Yes substance use type: does not use and crack/cocaine Last Used Substance Other:: Last used 1 year ago Physical Exam Vital Signs Last Vital Signs Temp 37.1 C 07/09/19 15:13 Pulse 89 07/09/19 15:13 Resp 16 07/09/19 15:13 BP 119/77 07/09/19 15:13 Pulse Ox 96 07/09/19 15:13 ENMT Mouth: + edentulous; no TMJ abnormality Thyromental Distance: > or= 3.5 Finger Breadths Mallampati Class: II right nasal packing present. No blood noted in mouth. no recent vomiting/coughing blood Neck normal visual inspection and trachea midline; neck extension not limited Respiratory normal respiratory effort Auscultation: lungs clear to auscultation bilaterally and + diminished lung sounds Cardiovascular Rate/Rhythm: regular rate and regular rhythm Heart Sounds: no murmur Musculoskeletal Spine: normal cervical ROM Extremities: full ROM of extremities Neurologic moves all extremities Psychiatric Orientation: alert and oriented x 3 Testing Laboratory Results 07/09/19 05:28 07/09/19 05:28 PT 11.3 Seconds (9.0-12.0) 07/08/19 10:46 INR 1.1 (0.9-1.1) 07/08/19 10:46 APTT 25.0 Seconds (21.0-31.0) 07/08/19 10:46 Hemoglobin A1c 6.5 % (4.5-5.6) H 07/09/19 05:28 Urine Color Yellow 07/08/19 12:51 Urine Appearance Clear (Clear) 07/08/19 12:51 Urine pH 5.0 (4.5-7.5) 07/08/19 12:51 Ur Specific [place] 1.042 (1.000-1.030) H 07/08/19 12:51 Urine Protein 2+ (Negative) H 07/08/19 12:51 Urine Glucose (UA) 3+ (Negative) H 07/08/19 12:51 Urine Ketones 1+ (Negative) H 07/08/19 12:51 Urine Nitrite Negative (Negative) 07/08/19 12:51 Ur Leukocyte Esterase Negative (Negative) 07/08/19 12:51 Urine WBC (Auto) 1-5 /hpf (0-5) 07/08/19 12:51 Urine RBC (Auto) 0-4 /hpf (0-4) 07/08/19 12:51 U Hyaline Cast (Auto) 1-5 /lpf (0-5) 07/08/19 12:51 U Epithel Cells (Auto) 0-5 /lpf (0-5) 07/08/19 12:51 Urine Bacteria (Auto) Negative (Negative) 07/08/19 12:51 07/09/19 07/09/19 07/09/19 11:35 07:40 04:20 POC Glucose 145 H 147 H 185 H Electrocardiogram Date: 07/09/19 Findings: + NSR @ (81) [id number] Chest X-Ray Date: 07/09/19 Findings: + NAD Echocardiogram Date: 07/09/19 EF: 50-55 LV Function: normal RWMA: + none Valvular Disease: + no significant valvular disease mod concen LVH with gr 1 diastolic dysfxn
[2019-07-09] MEDS ORDERED: MoRPHine SULFATE 10 MG/ML CARP/VIAL IV PRN (15:47)
[2019-07-09] MEDS ORDERED: ePHEDrine sulfate 50 MG/ML AMP IV PRN (15:47)
[2019-07-09] MEDS ORDERED: fentaNYL citrate 100 MCG/2 ML VIAL IV PRN (15:47)
[2019-07-09] MEDS ORDERED: ATROPINE SULFATE 0.1 MG/ML 10ML SYR IV PRN (15:47)
[2019-07-09] MEDS ORDERED: MEPERIDINE HCL 25 MG/ML CARP/VIAL IV PRN (15:47)
[2019-07-09] MEDS ORDERED: GLYCOPYRROLATE 0.2 MG/ML VIAL ONE (15:56)
[2019-07-09] MEDS ORDERED: MIDAZOLAM HCL 1 MG/ML 2ML VIAL ONE ×2 (15:56→16:23)
[2019-07-09] MEDS ORDERED: LACTATED RINGER'S 1,000 ML IV SCH (16:00)
[2019-07-09] MEDS ORDERED: CEFAZOLIN 250 MG/ML 1 GM VIAL ONE (16:22)
[2019-07-09] MEDS ORDERED: GELATIN SPONGE SZ 100 ONE (16:34)
[2019-07-09] MEDS ORDERED: fentaNYL citrate 100 MCG/2 ML VIAL ONE (16:34)
[2019-07-09] MEDS ORDERED: METOCLOPRAMIDE HCL INJ 5 MG/ML 2 ML VIAL ONE (16:42)
--- NOTE | 2019-07-09 16:55 | Operative Report ---
Post Operative Report Pre & Post Diagnosis Operation Date: 07/09/19 08:40 Pre-Op Diagnosis: Posterior Epistaxis Post-Op Diagnosis: Posterior Epistaxis I identified the patient and participated in the time-out.: Yes Procedure Operation Date: 07/09/19 08:40 Actual Procedures p Endoscopic Cautery and Posterior Packing(Right) - Hanane Rodriguez MD Surgeon Hanane Rodriguez MD Quarry Extraction Worker None Estimated Blood Loss 10 Findings Consistent with Post-Op Diagnosis Specimens None Anesthesia Type MAC Complications none Disposition Accompanied Patient To Recovery: Yes Disposition: Recovery Room Indications Right side posterior epistaxis Description of Procedure He was brought to the operating room, placed in the supine position, properly identified, prepped and draped in the usual sterile manner after sedation. The nose was decongested using cottonoids with a topical solution of 4 cc of 4% Xylocaine mixed with 1 cc of epinephrine injection of 2% Xylocaine with 1-1000 strength epinephrine was also used. The right side of the nose was visualized the septum had an area of bleeding along the septal spur to the right inferiorly. The septum was fractured back to the midline and the inferior turbinate was fractured laterally. The bleeding site was cauterized using the suction cautery. Posterior packing was started with 3 strips of Gelfoam posteriorly at the posterior choanae. 10 cc of FloSeal was then used to fill the nasal cavity. Another strip of Gelfoam was placed in the anterior nares. He tolerated the procedure well and was taken to recovery area in satisfactory condition. I attest to the content of the Intraoperative Record and any orders documented therein. Any exceptions are noted below.
--- NOTE | 2019-07-09 16:58 | Operative Report ---
Post Operative Report Pre & Post Diagnosis Operation Date: 07/09/19 08:40 Pre-Op Diagnosis: Posterior Epistaxis Post-Op Diagnosis: Posterior Epistaxis I identified the patient and participated in the time-out.: Yes Procedure Operation Date: 07/09/19 08:40 Actual Procedures p Endoscopic Cautery and Posterior Packing(Right) - Hanane Rodriguez MD Surgeon Hanane Rodriguez MD Dairy Farmworker None Estimated Blood Loss 10 Findings Consistent with Post-Op Diagnosis Specimens None Anesthesia Type MAC Complications none Disposition Accompanied Patient To Recovery: Yes Disposition: Recovery Room Indications Right-sided posterior epistaxis Description of Procedure He was brought to the operating room, placed in the supine position, properly identified, prepped and draped in the usual sterile manner after sedation. The nose was decongested using topical cottonoids with a solution of 4 cc of 4% Xylocaine mixed with 1 cc of epinephrine. Injection of 2% Xylocaine with 1 1000 strength epinephrine was also used. The bleeding site was along the septal spur to the right inferiorly. The [place] elevator was used to fracture the septum medially to the midline and also outfractured the inferior turbinate. The bleeding site was cauterized using the suction cautery. Posterior packing was started with 3 strips of Gelfoam posteriorly at the posterior choanae. The nasal cavity was then filled with 10 cc of FloSeal. Strip of Gelfoam was placed at the anterior nares. He tolerated the procedure well and was taken recovery area in satisfactory condition. I attest to the content of the Intraoperative Record and any orders documented therein. Any exceptions are noted below.
[2019-07-09] MEDS ORDERED: FLOSEAL HEMOSTATIC MATRIX 10ML TOP ONE (17:03)
--- NOTE | 2019-07-09 17:14 | Anesthesiology Progress Note ---
Date of Service July 09, 2019 Anesthesia Post Procedure Vital Signs Vital Signs: Temp Pulse Pulse Pulse Resp BP Pulse Ox 07/09/19 17:10 89 11 L 116/70 96 07/09/19 17:00 91 H 12 121/80 97 07/09/19 16:54 36.3 C L 90 12 130/80 97 07/09/19 15:13 37.1 C 89 16 119/77 96 07/09/19 11:31 36.8 C 90 20 134/81 100 07/09/19 09:30 81 07/09/19 07:55 37.0 C 86 18 124/75 100 07/09/19 04:27 36.7 C 81 15 111/68 99 07/09/19 02:27 92 H 07/08/19 22:35 36.5 C 100 H 18 115/78 100 07/08/19 18:55 37 C 93 H 18 114/81 99 Pain Intensity Right Face: Pain Intensity: 6 Nose: Pain Intensity: 0 Transfer of Care Handoff Completed per policy Notes Mental Status: alert / awake / arousable and participated in evaluation Patient Amnestic to Procedure: Yes Nausea / Vomiting: adequately controlled Pain: adequately controlled Airway Patency, RR, SpO2: stable & adequate BP & HR: stable & adequate Hydration State: stable & adequate Anesthetic Complications: no major complications apparent
--- NOTE | 2019-07-09 19:39 | Hospitalist Progress Note ---
Date of Service July 09, 2019 Assessment & Plan (1) Hypertensive emergency: Pt is 34 y/o M with PMH HTN, HLD, insulin-dependent DM II, CHF, congenital heart anomaly, psoriasis, glaucoma presented to ER from [facility] for epistaxis and HTN. Not been taking BP meds x 1 month. Today 3 AM started with right-sided epistaxis. Also c/o dull MONTOYA. Has chronic blurry vision to left eye however feels increased blurriness to left eye this morning. Denies chest pain, dizziness, syncope, paresthesias. BP on admission 192/137 Mostly due to non compliant since pt stopped taking his BP meds CT head showed no acute intracranial abnormality. Received IV labetalol 10mg IV in the ER Continue lisinopril, carvedilol, lasix BP has been well controlled (2) Epistaxis: CT Head showed aerated secretions in the right maxillary sinus and right ethmoid air cells may relate to the reported epistaxis or indicate acute sinusitis. s/p endoscopic Cautery and Posterior Packing(Right) performed by Dr. Hanane Rodriguez MD Case discussed with Dr. Rodriguez No need for follow appointment for packing removal since it will dissolve in a few days Advised pt avoid any NSAIDs for now and no picking at his nose Continue Augmentin for prophylaxis Stable from ENT to discharge to Ej Continue monitor CBC (3) Abnormal EKG: EKG sinus tachycardia, t wave inversion lateral leads (no prior for comparison) Pt reports h/o abnormal EKG Troponin trending down ECHO showed moderate LVH. No wall motion abnormality and EF 50-55 % (4) Diabetes mellitus, type II: Most recent Hba1c 6.5 on 07/08 On Novolog, Lantus sliding scale per protocol Continue monitor BS (5) CHF (congestive heart failure): Reported h/o CHF Does not appear volume overloaded at this time Continue lasix CKD Creatinine today 1.5 I spoke to staff at [facility] creatinine was 1.65 on 04/2019 Creatinine at baseline DVT Prophylaxis no anticoagulant due to Epistaxis, will encourage pt to ambulate Full Code Admission and Anticipated Discharge Date Admission Date: July 08, 2019 Subjective Pt was seen and examined Lying in bed with no distress Pt said that he does have some pain around his nostril area Denies any chest pain, palpitation, dizziness and SOB Physical Exam Physical Exam: General- No acute distress Head- atraumatic Eyes- PERRL, EOMI, ENT- oropharynx clear Neck- supple, no JVD Lungs- clear to auscultation Heart- regular rhythm; no murmur Abdomen- normal bowel sounds, soft, nontender Extremities- no calf tenderness Neuro- alert, oriented x 3; PERRL, EOMI; no facial palsy; no dysarthria Skin- warm & dry Results & Data Results & Data ([facility]) Vital Signs (Past 12 Hours) Vital Signs Temp Pulse Pulse Pulse Resp BP BP 07/09/19 18:38 37.6 C H 98 H 18 112/76 07/09/19 18:15 36.9 C 100 H 16 124/82 07/09/19 18:00 37.1 C 88 94 H 16 114/76 07/09/19 17:45 37.2 C 95 H 16 117/76 07/09/19 17:30 36.7 C 89 16 101/63 07/09/19 17:20 36.7 C 90 17 122/70 07/09/19 17:10 89 11 L 116/70 07/09/19 17:00 91 H 12 121/80 07/09/19 16:54 36.3 C L 90 12 130/80 07/09/19 15:13 37.1 C 89 16 119/77 07/09/19 11:31 36.8 C 90 20 134/81 07/09/19 09:30 81 07/09/19 07:55 37.0 C 86 18 124/75 Pulse Ox 07/09/19 18:38 100 07/09/19 18:15 100 07/09/19 18:00 99 07/09/19 17:45 97 07/09/19 17:30 95 07/09/19 17:20 96 07/09/19 17:10 96 07/09/19 17:00 97 07/09/19 16:54 97 07/09/19 15:13 96 07/09/19 11:31 100 07/09/19 09:30 07/09/19 07:55 100
[2019-07-10] MEDS: ACETAMINOPHEN 325 MG TAB PO PRN ×2 (03:51→08:14)
--- NOTE | 2019-07-10 03:53 | Communication Note ---
Date of Service: July 10, 2019 Made aware by RN of fever spike. serum crea 1.55 from 1.51 (5/6) from 1.13 (5/) AP Fever ? Secondary to clinical dehydration secondary to possible overdiuresis (ARF) IVF Hold Lasix and BRICE inhibitor for now until creatinine back to baseline. Will relay to AM provider.
[2019-07-10] MEDS ORDERED: LACTATED RINGER'S 1,000 ML IV ONE (04:00)
[2019-07-10 04:10] LABS: Basophils # (auto) 0.03 K/uL (0-0.2); Basophils % (auto) 0.3 %; Eosinophils # (auto) 0.14 K/uL (0-0.5); Eosinophils % (auto) 1.4 %; Hematocrit (blood only) 24.9 % (42-52); Hemoglobin 9.1 g/dL (14.0-18.0); Immature Granulocytes # (auto) 0.02 K/uL (0.00-0.02); Immature Granulocytes % (auto) 0.2 %; Lymphocytes # (auto) 1.47 K/uL (1.2-3.4); Mean Corpuscular Hemoglobin 32.4 pg (25-34); Mean Corpuscular Hgb Conc 36.5 g/dL (32-36); Mean Corpuscular Volume 88.6 fL (80-100); Mean Platelet Volume 9.2 fL (7.4-10.4); Monocytes # (auto) 0.93 K/uL (0.11-0.59); Monocytes % (auto) 9.5 %; Neutrophils # (auto) 7.24 K/uL (1.4-6.5); Neutrophils % (auto) 73.6 %; Platelet Count 219 K/uL (130-400); RDW Coefficient of Variation 13.4 % (11.5-14.5); RDW Standard Deviation 43.3 fL (36.4-46.3); Red Blood Count 2.81 M/uL (4.7-6.1); White Blood Count 9.83 K/uL (4.8-10.8)
[2019-07-10 04:26] LABS: BUN Creatinine Ratio 26.2 (10-20); Creatinine Clr Calc Pharmacy 72.2 ml/min; Est GFR (African American) 67.2; Magnesium 1.8 mg/dl (1.8-2.4); Potassium 3.6 mmol/L (3.5-5.1)
[2019-07-10] MEDS: AMOXICILLIN/CLAVULANATE 875 MG TAB PO SCH (08:14)
[2019-07-10] MEDS: INSULIN HUMAN NPH SC SCH (08:15)
[2019-07-10] MEDS: carvediloL 12.5 MG TAB PO SCH (08:15)
[2019-07-10] MEDS: INSULIN ASPART 100 UNITS/ML 3 ML PEN SC SCH ×3 (08:16→17:14)
--- NOTE | 2019-07-10 09:16 | Pharmacy Report ---
Pharmacy Glycemic Short Note 2 - Date of Service July 10, 2019 - Glycemic Short BSG Results (Last 24 hours): OUTPATIENT ANTIDIABETIC REGIMEN: * Insulin NPH 12 units SQ BID * A1c = 6.5% on 07/09/2019 ASSESSMENT: 07/09: * Patient underwent cauterization for epistaxis yesterday. Patient was NPO for which AM NPH dose was decreased then T2DM diet restarted yesterday afternoon. * Fasting BSG this AM is 140 mg/dL. Acceptable. Continues on Augmentin. * Will tighten goal range to 110-140 mg/dL today. No other changes necessary. PLAN FOR INPATIENT GLYCEMIC CONTROL: * Basal insulin * NPH 10 units SQ BIDM * Bolus insulin * NovoLog per scale ACHS or Q6hrs while NPO * Goal Range: Low 110 mg/dL - High 140 mg/dL * Correction Factor: 25 mg/dL/unit * Nutritional / Prandial insulin per carb ratio of 1 unit per 8 grams CHO consumed PLAN FOR DISCHARGE: * A1c of 6.5% is well controlled. * Continue NPH 12 units SQ BIDM upon discharge.
--- NOTE | 2019-07-10 09:58 | Surgery Progress Note ---
Date of Service July 10, 2019 Assessment & Plan (1) Epistaxis: controlled, okay to transfer back to [facility] when cleared by medical Subjective no further bleeding Physical Exam Constitutional: WD/WN, vitals as above Eyes: PERRL, conjunctivae normal, anicteric sclerae ENMT: Nose: + nasal discharge (packing in place, no bleeding) Results & Data Vital Signs (Past 12 Hours) Vital Signs Temp Pulse Resp BP Pulse Ox 07/10/19 08:01 36.9 C 88 17 115/76 99 07/10/19 04:55 37.5 C 07/10/19 03:41 37.9 C H 93 H 19 107/70 98 07/09/19 23:52 37.4 C 102 H 20 118/78 100
[2019-07-10] MEDS ORDERED: TRAMADOL HCL 50 MG TABLET PO STA (11:07)
--- NOTE | 2019-07-10 15:03 | Hospitalist Progress Note ---
Date of Service July 10, 2019 Assessment & Plan (1) Hypertensive emergency: Pt is 34 y/o M with PMH HTN, HLD, insulin-dependent DM II, CHF, congenital heart anomaly, psoriasis, glaucoma presented to ER from [facility] for epistaxis and HTN. Not been taking BP meds x 1 month. Today 3 AM started with right-sided epistaxis. Also c/o dull OMNTOYA. Has chronic blurry vision to left eye however feels increased blurriness to left eye this morning. Denies chest pain, dizziness, syncope, paresthesias. BP on admission 192/137 Mostly due to non compliant since pt stopped taking his BP meds CT head showed no acute intracranial abnormality. Received IV labetalol 10mg IV in the ER Continue lisinopril, carvedilol, lasix BP has been well controlled Counseling pt to continue taking his BP meds Complications discussed with pt such as stroke, PR, kidney disease/dialysis and (2) Epistaxis: CT Head showed aerated secretions in the right maxillary sinus and right ethmoid air cells may relate to the reported epistaxis or indicate acute sinusi tis. s/p day #1 endoscopic Cautery and Posterior Packing(Right) performed by Dr. Hanane Rodriguez MD Case discussed with Dr. Rodriguez No need for follow appointment for packing removal since it will dissolve in a few days Advised pt to avoid any NSAIDs for now and no picking at his nose Continue Augmentin for prophylaxis to complete 7 days course Stable from ENT to discharge to Ej Hgb 9.1 today Check CBC in 1 week (3) Abnormal EKG: EKG sinus tachycardia, t wave inversion lateral leads (no prior for comparison) EKG reviewed with cardiology and suggested that it is more due to LVH EKG finding not new when discussed with provider at [facility] Troponin trending down ECHO showed moderate LVH. No wall motion abnormality and EF 50-55 % Denies any chest pain (4) Elevated troponin: Possible related to hypertensive emergency Troponin on admission 0.05 then peaked to 0.07, then trending down to 0.06 EKG showed T wave changes ( does not seem to be new when spoke to provider at [facility]) spoke to cardiology recommended outpatient work up since pt denies any chest pain ECHO showed no wall motion abnormality with EF 50-55% Continue Carvedilol No aspirin due to Nose bleeding (5) Diabetes mellitus, type II: Most recent Hba1c 6.5 on 07/08 On Novolog, Lantus sliding scale per protocol Continue monitor BS (6) CHF (congestive heart failure): Reported h/o CHF Does not appear volume overloaded at this time Continue lasix CKD Creatinine today 1.5 I spoke to staff at [facility] creatinine was 1.65 on 04/2019 Creatinine at baseline DVT Prophylaxis no anticoagulant due to Epistaxis, will encourage pt to ambulate Full Code Disposition will discharge to [facility] today Admission and Anticipated Discharge Date Admission Date: July 08, 2019 Subjective Pt was seen and examined Lying in bed with no distress with information technology security analyst at bedside Pt said that he feels OK I spoke to dr. Sanchez today at [facility] and provided updates Denies any chest pain, palpitation, dizziness and SOB Physical Exam Physical Exam: General- No acute distress Head- atraumatic Eyes- PERRL, EOMI, ENT- oropharynx clear Neck- supple, no JVD Lungs- clear to auscultation Heart- regular rhythm; no murmur Abdomen- normal bowel sounds, soft, nontender Extremities- no calf tenderness Neuro- alert, oriented x 3; PERRL, EOMI; no facial palsy; no dysarthria Skin- warm & dry Results & Data Results & Data ([facility]) Vital Signs (Past 12 Hours) Vital Signs Temp Pulse Pulse Resp BP Pulse Ox 07/10/19 08:01 36.9 C 88 17 115/76 99 07/10/19 08:00 88 07/10/19 04:55 37.5 C 07/10/19 03:41 37.9 C H 93 H 19 107/70 98
--- NOTE | 2019-07-10 15:53 | Discharge Summary ---
Date of Service July 10, 2019 Admission HPI Per Admitting Provider Pt is 34 y/o M with PMH HTN, HLD, insulin-dependent DM II, CHF, congenital heart anomaly, psoriasis, glaucoma presented to ER from [facility] for epistaxis and HTN. Patient has not been taking his BP meds for the past month because "I've been lazy and not feel like it". Reports he has been using his insulin, however he reports he has not been taking the amounts that the medical team at [facility] have been recommending. BSG is been running 190 to low 100s. Patient states this morning at 3 AM started with right-sided epistaxis that was continuous. Patient states this morning around 6 AM developed dull headache. He reports chronic blurry vision to left eye however feels increased blurriness to left eye this morning. Patient states this morning felt a little shortness of breath. Denies chest pain, dizziness, syncope, paresthesias. Reports last week had epistaxis that resolved with pressure. Denies picking nose or any nasal or facial injury. Denies fever/chills, diaphoresis, N/V/D/C, neck pain, CP, orth opnea, palpitations, cough, sore throat, choking, otalgia, rhinorrhea, abdominal pain, weakness, extremity weakness, extremity edema, rashes, urinary symptoms. Admission Exam Per Admitting Provider General: no distress, WDWN Head: normocephalic, atraumatic Eyes: PERRL, EOM's intact, conjunctiva non-injected, anicteric ENT: normal inspection external ears, Right nare with rapid rhino in place with no active bleeding surrounding, left nare without epistaxis, posterior pharynx with scant red blood, mucous membranes moist Neck: supple, trachea midline Lungs: clear, no respiratory distress, no wheezing/rhonchi/rales CV: RRR, no murmur, no pretibial edema Abd: normal BS, soft, non-tender Ext: no cyanosis, no calf tenderness Neuro: A&O x 3, no focal deficits noted, normal affect Skin: warm, dry; +scattered pink plaques to arms, legs, back, chest Principal Diagnosis Hypertensive emergency: Epistaxis: Abnormal EKG: Diabetes mellitus, type II: CHF (congestive heart failure): Chronic Kidney disease Discharge Exam General- No acute distress Head- atraumatic Eyes- PERRL, EOMI, ENT- oropharynx clear Neck- supple, no JVD Lungs- clear to auscultation Heart- regular rhythm; no murmur Abdomen- normal bowel sounds, soft, nontender Extremities- no calf tenderness Neuro- alert, oriented x 3; PERRL, EOMI; no facial palsy; no dysarthria Skin- warm & dry Discharge Data Allergies Allergy/AdvReac Type Severity Reaction Status Date / Time No Known Allergies Allergy Unverified 07/08/19 11:51 Consultations 07/08/19 12:51 ED Decision to Admit Stat 07/08/19 15:10 Consult Otolaryngology (Head and Neck) Routine Procedures Performed Operation Date: 07/09/19 08:40 Actual Procedures p Endoscopic Cautery and Posterior Packing(Right) - Hanane Rodriguez MD Ordered Studies 07/08/19 10:37 CT head/brain wo con Stat XR chest 1V portable CLINICAL HISTORY: 34 years-old Male presenting with htn, headache. TECHNIQUE: Portable upright AP view of the chest was obtained. COMPARISON: None. FINDINGS: Cardiomediastinal silhouette normal. No focal opacity. No large effusion or pneumothorax. Osseous structures normal. Upper abdomen normal. IMPRESSION: 1. No acute cardiopulmonary disease. ACT 112: Negative or not required by law. Electronically signed by: Adrian Phillips M.D. 07/08/2019 11:01 AM Dictated: 07/08/19 1059 Transcribed: 07/08/[address] head/brain wo con CLINICAL HISTORY: 34 years-old Male presenting with headache, htn, epistaxis since 3:00 AM. TECHNIQUE: Multidetector CT imaging of the head was performed without the use of intravenous contrast. IV contrast: None. One or more dose lowering techniques were used consistent with the principles of ALARA (as low as reasonably achievable), including automatic exposure control, mA or kV adjustment to individual patient size, and/or use of iterative reconstruction. COMPARISON: None. CT DOSE (mGy.cm): The estimated cumulative dose is 614.27 mGy.cm. 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 Ventricles and sulci normal in size. No hemorrhage. Brain parenchyma normal in appearance with preserved lynn-white differentiation. No acute territorial infarct. No mass effect or midline shift. No extra-axial fluid collection. Aerated secretions in the right maxillary sinus. These are also noted in the right ethmoid air cells. Calvarium intact. IMPRESSION: 1. No acute intracranial abnormality. 2. Aerated secretions in the right maxillary sinus and right ethmoid air cells may relate to the reported epistaxis or indicate acute sinusitis. ACT 112: Negative or not required by law. Electronically signed by: Adrian Phillips M.D. 07/08/2019 12:46 PM Dictated: 07/08/19 1242 Transcribed: 07/08/19 1242 Hospital Course (1) Hypertensive emergency: Pt is 34 y/o M with PMH HTN, HLD, insulin-dependent DM II, CHF, congenital heart anomaly, psoriasis, glaucoma presented to ER from [facility] for epistaxis and HTN. Not been taking BP meds x 1 month. Today 3 AM started with right-sided epistaxis. Also c/o dull MONTOYA. Has chronic blurry vision to left eye however feels increased blurriness to left eye this morning. Denies chest pain, dizziness, syncope, paresthesias. BP on admission 192/137 Mostly due to non compliant since pt stopped taking his BP meds CT head showed no acute intracranial abnormality. Received IV labetalol 10mg IV in the ER Continue lisinopril, carvedilol, lasix BP has been well controlled Counseling pt to continue taking his BP meds Complications discussed with pt such as stroke, SD, kidney disease/dialysis and (2) Epistaxis: CT Head showed aerated secretions in the right maxillary sinus and right ethmoid air cells may relate to the reported epistaxis or indicate acute sinusitis. s/p day #1 endoscopic Cautery and Posterior Packing(Right) performed by Dr. Hanane Rodriguez MD Case discussed with Dr. Rodriguez No need for follow appointment for packing removal since it will dissolve in a few days Advised pt to avoid any NSAIDs for now and no picking at his nose Continue Augmentin for prophylaxis to complete 7 days course Stable from ENT to discharge to Ej Hgb 9.1 today Check CBC in 1 week (3) Abnormal EKG: EKG sinus tachycardia, t wave inversion lateral leads (no prior for comparison) EKG reviewed with cardiology and suggested that it is more due to LVH EKG finding not new when discussed with provider at [facility] Troponin trending down ECHO showed moderate LVH. No wall motion abnormality and EF 50-55 % Denies any chest pain (4) Elevated troponin: Possible related to hypertensive emergency Troponin on admission 0.05 then peaked to 0.07, then trending down to 0.06 EKG showed T wave changes ( does not seem to be new when spoke to provider at [facility]) spoke to cardiology recommended outpatient work up since pt denies any chest pain ECHO showed no wall motion abnormality with EF 50-55% Continue Carvedilol No aspirin due to Nose bleeding (5) Diabetes mellitus, type II: Most recent Hba1c 6.5 on 07/08 On Novolog, Lantus sliding scale per protocol Continue monitor BS (6) CHF (congestive heart failure): Reported h/o CHF Does not appear volume overloaded at this time Continue lasix CKD Creatinine today 1.5 I spoke to staff at [facility] creatinine was 1.65 on 04/2019 Creatinine at baseline DVT Prophylaxis no anticoagulant due to Epistaxis, will encourage pt to ambulate Full Code Disposition will discharge to [facility] today Total Time Total Time Spent Total Time Spent (In Minutes): 40 minutes Total Time Includes: Examination of the Patient, Discharge Planning, Medication Reconciliation, Communication With Other Providers and Other Discharge Plan Discharge Items [facility] Reason For Visit: HTN, EPISTAXIS Discharge Diagnosis: Hypertensive emergency: Epistaxis: Abnormal EKG: Diabetes mellitus, type II: CHF (congestive heart failure): Chronic Kidney disease Condition on Discharge: Good Activity: Resume your previous activity Non-emergency contact: Primary Care Provider Call non-emergency contact if: you have any medication questions and your temperature is above 101 [facility] - Diet: Carb Consistent or DM2 Addtl Attending Provider Instructions: Follow up with your primary care provider at [facility] Continue Augmentin for prophylaxis for an additional 5 days Avoid any NSAID for now due to epistaxis Continue monitor your blood pressure Continue monitor your blood sugar and limited concentrated sweet intake Your provider will arrange for outpatient cardiac work to evaluate for the abnormal EKG Check CBC in 1 week to monitor your hemoglobin Pending Studies at Discharge: No Stand-Alone Forms: My [facility] Skilled Items Patient informed of condition?: Yes DNR: No Discharge Level of Care: Other Communicable Disease: No Discharge Prognosis: Stable Lines: None Urinary Catheter: No Medications and DC Order Prescriptions: New amoxicillin-pot clavulanate [Augmentin] 875-125 mg Tablet 1 tab PO BIDM 5 Days Qty: 10 RF: 0 acetaminophen [Tylenol Extra Strength] 500 mg tablet 1,000 mg PO Q8H PRN (Reason: pain) Qty: 20 RF: 0 Continued carvedilol 12.5 mg Tablet 12.5 mg PO BID RF: 0 furosemide [Lasix] 80 mg Tablet 80 mg PO DAILY RF: 0 lisinopril 20 mg Tablet 20 mg PO DAILY RF: 0 Novolin N Flexpen 100 unit/mL (3 mL) Insulin Pen 12 unit SUBCUT BID RF: 0 Admission Data Admit Date/Time: 07/08/19 13:36 Attending Provider: Mariano Torres Admit Provider: Nicholas Luo Primary Care Provider: Gem RICKETTS Other Providers: Nicholas Luo ; Hanane Rodriguez
== END 2019-07-10 17:25 ==
LOC: 2W 09:53 → ED 09:53 → SUATTDRO 13:36 → 2W 14:08

== ENCOUNTER 2019-12-11 12:21 | Inpatient (IN) ==
[2019-12-11 12:46] LABS: Basophils # (auto) 0.04 K/uL (0-0.2); Basophils % (auto) 0.5 %; Eosinophils # (auto) 0.29 K/uL (0-0.5); Eosinophils % (auto) 3.4 %; Hematocrit (blood only) 44.3 % (42-52); Hemoglobin 15.9 g/dL (14.0-18.0); Immature Granulocytes # (auto) 0.02 K/uL (0.00-0.02); Immature Granulocytes % (auto) 0.2 %; Mean Corpuscular Hemoglobin 30.1 pg (25-34); Mean Corpuscular Hgb Conc 35.9 g/dL (32-36); Mean Corpuscular Volume 83.9 fL (80-100); Mean Platelet Volume 10.4 fL (7.4-10.4); Neutrophils # (auto) 5.78 K/uL (1.4-6.5); Neutrophils % (auto) 66.9 %; Platelet Count 243 K/uL (130-400); RDW Coefficient of Variation 13.4 % (11.5-14.5); RDW Standard Deviation 40.4 fL (36.4-46.3); Red Blood Count 5.28 M/uL (4.7-6.1); White Blood Count 8.63 K/uL (4.8-10.8)
[2019-12-11 12:59] LABS: Partial Thromboplastin Time 27.8 Seconds (21.0-31.0); Prothrombin Time 10.3 Seconds (9.0-12.0)
--- NOTE | 2019-12-11 13:01 | XRay Report ---
SINGLE VIEW CHEST CLINICAL HISTORY: Atypical chest pain. FINDINGS: An AP, portable, upright chest radiograph is compared to study dated 07/08/2019. The cardiome diastinal silhouette is unremarkable. The lungs and pleural spaces are clear. No pneumothorax is seen . The bony thorax is grossly intact. IMPRESSION: No active disease in the chest. ACT 112: Negative or not required by law. Electronically signed by: Parvez Paris M.D. 12/11/2019 1:00 PM
[2019-12-11] MEDS ORDERED: LABETALOL HCL IV 5 MG/ML 20ML IV STA ×2 (13:05→15:07)
--- NOTE | 2019-12-11 13:11 | Emergency Department Note ---
History of Present Illness General Chief Complaint: Cardiac Assessment Time Seen by Provider: 12/11/19 12:39 Source: patient Mode of arrival: ambulatory Limitations: no limitations History of Present Illness Maximum Pain Intensity: 0 This is a 34-year-old male who presents to the ED with a chief complaint of hypertension. The patient states that he is not having any symptoms. He went to the [facility] to have a routine EKG performed. He states that his blood pressure was elevated and he was sent here for further evaluation. The patient denies any chest pains or shortness of breath. He was seen here in July and felt to be noncompliant with his medications. The patient takes his medication on his own. He states that he did take his medication at 9 AM this morning. The patient denies any other symptoms. No headaches. No recent illness. Home Medications Home Medications Medication Instructions Recorded Confirmed Type atorvastatin 10 mg PO DAILY 12/11/19 12/11/19 History carvedilol 12.5 mg PO BID 12/11/19 12/11/19 History furosemide 80 mg PO DAILY 12/11/19 12/11/19 History insulin NPH isoph U-100 human 17 unit SUBCUT BID 12/11/19 12/11/19 History [Novolin N Flexpen] insulin regular human [Novolin R 0 unit SUBCUT UD 12/11/19 12/11/19 History Flexpen] latanoprost 1 drp OPB HS 12/11/19 12/11/19 History lisinopril 20 mg PO DAILY 12/11/19 12/11/19 History sertraline 50 mg PO DAILY 12/11/19 12/11/19 History triamcinolone acetonide 1 applic TOPICAL BID 12/11/19 12/11/19 History Allergies Allergy/AdvReac Type Severity Reaction Status Date / Time No Known Drug Allergies Allergy Unknown Unverified 12/11/19 14:20 Past Med/Surg History Medical History Abnormal EKG CHF (congestive heart failure) No recent exacerbation Congenital heart anomaly Diabetes mellitus, type II Glaucoma HLD (hyperlipidemia) HTN (hypertension) Mild concentric left ventricular hypertrophy (LVH) Psoriasis Surgical History History of cardiac catheterization History of esophagogastroduodenoscopy (EGD) Family History Other Diabetes Hypertension Social History Smoking Status: Former smoker Second Hand Exposure: No; Hx Alcohol Use: No Hx Substance Use: Yes Last Used Substance Other:: Last used 1 year ago Preferred Language: Scottish Communication Ability: Effective Secret Code Expert Required: No Beliefs That Will Affect Care: None Current Living Situation: Other Current Living Situation Comment: LILIAM Rabago Feels Safe at Home: Yes Assistive Devices: None Review of Systems A total of 10 systems reviewed and were otherwise negative Physical Exam Vital Signs Vital Signs - 24 hr 12/11/19 12:33 12/11/19 13:00 12/11/19 13:09 Temperature 37.5 C Temperature Source Oral Pulse Rate 91 H 91 H 90 Pulse Rate from SpO2 Sensor 91 H 89 Respiratory Rate 22 22 22 Respiratory Effort / Characteristics Non-Labored Spontaneous Respiratory Depth Normal Respiratory Pattern Regular Blood Pressure 223/148 H 204/145 H Blood Pressure Mean 173 159 Blood Pressure Position Lying Pulse Oximetry 93 95 95 Oxygen Delivery Method Room Air Sepsis Recent Fever Within 48 Hours No Sepsis New/Unexplained Change in Mental Status No Sepsis Action Taken by Nursing No Action Required 12/11/19 13:10 12/11/19 13:19 12/11/19 13:21 Temperature Temperature Source Pulse Rate 91 H 91 H 88 Pulse Rate from SpO2 Sensor 91 H 92 H 88 Respiratory Rate 21 16 22 Respiratory Effort / Characteristics Respiratory Depth Respiratory Pattern Blood Pressure 189/131 H Blood Pressure Mean 142 Blood Pressure Position Pulse Oximetry 95 96 95 Oxygen Delivery Method Sepsis Recent Fever Within 48 Hours Sepsis New/Unexplained Change in Mental Status Sepsis Action Taken by Nursing 12/11/19 13:30 12/11/19 13:40 12/11/19 13:50 Temperature Temperature Source Pulse Rate 80 81 82 Pulse Rate from SpO2 Sensor 80 81 82 Respiratory Rate 21 21 18 Respiratory Effort / Characteristics Respiratory Depth Respiratory Pattern Blood Pressure 190/130 H Blood Pressure Mean 139 Blood Pressure Position Pulse Oximetry 95 95 95 Oxygen Delivery Method Sepsis Recent Fever Within 48 Hours Sepsis New/Unexplained Change in Mental Status Sepsis Action Taken by Nursing 12/11/19 14:00 12/11/19 14:10 12/11/19 14:20 Temperature Temperature Source Pulse Rate 81 80 83 Pulse Rate from SpO2 Sensor 81 80 83 Respiratory Rate 18 20 19 Respiratory Effort / Characteristics Respiratory Depth Respiratory Pattern Blood Pressure 178/127 H Blood Pressure Mean 136 Blood Pressure Position Pulse Oximetry 94 94 94 Oxygen Delivery Method Sepsis Recent Fever Within 48 Hours Sepsis New/Unexplained Change in Mental Status Sepsis Action Taken by Nursing 12/11/19 14:30 12/11/19 14:40 12/11/19 14:50 Temperature Temperature Source Pulse Rate 81 82 84 Pulse Rate from SpO2 Sensor 81 82 83 Respiratory Rate 19 20 18 Respiratory Effort / Characteristics Respiratory Depth Respiratory Pattern Blood Pressure 195/128 H Blood Pressure Mean 145 Blood Pressure Position Pulse Oximetry 96 96 95 Oxygen Delivery Method Sepsis Recent Fever Within 48 Hours Sepsis New/Unexplained Change in Mental Status Sepsis Action Taken by Nursing 12/11/19 15:00 12/11/19 15:10 12/11/19 15:14 Temperature Temperature Source Pulse Rate 81 79 81 Pulse Rate from SpO2 Sensor 81 80 80 Respiratory Rate 23 20 21 Respiratory Effort / Characteristics Respiratory Depth Respiratory Pattern Blood Pressure 187/133 H 183/130 H Blood Pressure Mean 150 144 Blood Pressure Position Pulse Oximetry 96 95 96 Oxygen Delivery Method Sepsis Recent Fever Within 48 Hours Sepsis New/Unexplained Change in Mental Status Sepsis Action Taken by Nursing 12/11/19 15:20 12/11/19 15:22 12/11/19 15:30 Temperature Temperature Source Pulse Rate 78 79 78 Pulse Rate from SpO2 Sensor 79 79 78 Respiratory Rate 19 22 20 Respiratory Effort / Characteristics Respiratory Depth Respiratory Pattern Blood Pressure 189/119 H Blood Pressure Mean 121 Blood Pressure Position Pulse Oximetry 96 95 96 Oxygen Delivery Method Sepsis Recent Fever Within 48 Hours Sepsis New/Unexplained Change in Mental Status Sepsis Action Taken by Nursing CONSTITUTIONAL/VITAL SIGNS: Reviewed / noted above. GENERAL: Non-toxic in appearance. INTEGUMENTARY: Warm, dry, and [place]. HEAD: Normocephalic. EYES: without scleral icterus or trauma. ENT/OROPHARYNX: clear and moist. LYMPHADENOPATHY/NECK: Is supple without lymphadenopathy or meningismus. RESPIRATORY: Lungs clear and equal. CARDIOVASCULAR: Regular rate and rhythm. GI/ABDOMEN: Soft and nontender. No organomegaly or pulsatile mass. No rebound or guarding. Normal bowel sounds. EXTREMITIES: Warm and well perfused. BACK: No CVA tenderness. NEUROLOGICAL: Intact without focal deficits. PSYCHIATRIC: normal affect. MUSCULOSKELETAL: Normally developed with good muscle tone. TRIAGE NURSING DOCUMENTATION REVIEWED. Course Administered Medications Discontinued Medications Labetalol HCl (Labetalol Hcl Iv 5 Mg/Ml 20ml) 10 mg IV NOW STA Stop: 12/11/19 13:06 Last Admin: 12/11/19 13:18 Dose: 10 mg Documented by: [id number] Cosigned by: [id number] Labetalol HCl (Labetalol Hcl Iv 5 Mg/Ml 20ml) 20 mg IV NOW STA Stop: 12/11/19 15:08 Last Admin: 12/11/19 15:22 Dose: 20 mg Documented by: [id number] Cosigned by: [id number] Medical Decision Making Differential Diagnosis The differential that was considered includes acute myocardial infarction, acute coronary syndrome, myocarditis, pericarditis, pericardial effusions /tamponade, esophageal perforation, thoracic aortic dissection, pulmonary embolism, pneumonia, pneumothorax, pancreatitis, shingles, acute cholecystitis, perforated abdominal viscus. Medical Records Attestation: I reviewed the patient's medical records. Home Medications Current Medication List: was personally reviewed by me Laboratory Data Attestation: I reviewed the patient's lab results. Result diagrams: 12/11/19 12:30 12/11/19 12:30 Labs: Lab Results 12/11/19 12/11/19 12/11/19 Range/Units 12:30 12:30 12:30 WBC 8.63 (4.8-10.8) K/uL RBC 5.28 (4.7-6.1) M/uL Hgb 15.9 (14.0-18.0) g/dL Hct 44.3 (42-52) % MCV 83.9 (80-100) fL MCH 30.1 (25-34) pg MCHC 35.9 (32-36) g/dL RDW Std Deviation 40.4 (36.4-46.3) fL RDW Coeff of Wendy 13.4 (11.5-14.5) % Plt Count 243 (130-400) K/uL MPV 10.4 (7.4-10.4) fL Immature Gran % (Auto) 0.2 % Neut % (Auto) 66.9 % Lymph % (Auto) 22.0 % [place] % (Auto) 7.0 % Eos % (Auto) 3.4 % Baso % (Auto) 0.5 % Neut # (Auto) 5.78 (1.4-6.5) K/uL Lymph # (Auto) 1.90 (1.2-3.4) K/uL [place] # (Auto) 0.60 H (0.11-0.59) K/uL Eos # (Auto) 0.29 (0-0.5) K/uL Baso # (Auto) 0.04 (0-0.2) K/uL Immature Gran # (Auto) 0.02 (0.00-0.02) K/uL PT 10.3 (9.0-12.0) Seconds INR 1.0 (0.9-1.1) APTT 27.8 (21.0-31.0) Seconds PTT Ratio 1.0 Sodium 135 L (136-145) mmol/L Potassium 4.5 (3.5-5.1) mmol/L Chloride 102 (98-107) mmol/L Carbon Dioxide 28 (21-32) mmol/L Anion Gap 5.0 (3-11) BUN 21 H (7-18) mg/dl Creatinine 1.23 (0.6-1.4) mg/dl Est Cr Clr Drug Dosing 101.4 ml/min Est GFR ( Amer) 88.8 Est GFR (Non-Af Amer) 76.7 BUN/Creatinine Ratio 17.0 (10-20) Glucose 336 H* (70-99) mg/dl Calcium 9.1 (8.5-10.1) mg/dl Total Bilirubin 0.8 (0.2-1) mg/dl AST 24 (15-37) U/L ALT 24 (12-78) U/L Alkaline Phosphatase 102 (45-117) U/L Troponin I 0.042 (0-0.045) ng/ml Total Protein 7.8 (6.4-8.2) gm/dl Albumin 3.5 (3.4-5.0) gm/dl Globulin 4.3 H (2.5-4.0) gm/dl Albumin/Globulin Ratio 0.8 L (0.9-2) Beta-Hydroxybutyric Acd (0.2-2.81) mg/dl Specimen Hemolysis Imaging Data Chest x-ray: Radiologist's impression: SINGLE VIEW CHEST CLINICAL HISTORY: Atypical chest pain. FINDINGS: An AP, portable, upright chest radiograph is compared to study dated 07/08/2019. The cardiomediastinal silhouette is unremarkable. The lungs and pleural spaces are clear. No pneumothorax is seen. The bony thorax is grossly intact. IMPRESSION: No active disease in the chest. ECG Data Attestation: I personally reviewed and interpreted this ECG as follows: Indication: other (Hypertension) Rate (beats per minute): 92 Rhythm: normal sinus Findings: + T-wave inversion (Lateral) Comparison ECG Date: from (July 2019) Change: the following changes noted (Anterior T wave inversions are now gone. Lateral T wave inversions are the same.) MDM Narrative The patient presents to the ED with a chief complaint of asymptomatic hypertension during a routine exam with the [facility] at the [facility]. He is noted to be hypertensive here. He does report he took his morning meds. The patient's chest x-ray was without acute disease. His EKG shows a normal sinus rhythm without acute ischemic changes. His EKG does show T wave inversions in 1 and aVL. These are old compared to a previous EKG from July. He had T wave inversions anteriorly that have now resolved. The patient's chest x-ray was negative for acute disease. CBC and chemistry panel was unremarkable with exception of a glucose of 336. Troponin was negative. The patient was treated with labetalol 10 mg IV. The blood pressure improved to 183/130. Labetalol 20 mg IV was administered. Because of the patient's hypertension despite the report of the patient that he took his medication this morning, the patient will stay in the hospital for further evaluation and hypertensive management by the hospitalist service. Impression & Plan Accelerated hypertension Discharge Plan Visit Data Chief Complaint: Cardiac Assessment ED Provider: Dale Álvarez Discharge Problem: Accelerated hypertension Patient Disposition: Being Evaluated by Hospitalist Forms Stand Alone Forms: My [facility] Prescriptions Prescriptions: No Action latanoprost 0.005 % Drops 1 drp OPB HS RF: 0 carvedilol 12.5 mg Tablet 12.5 mg PO BID RF: 0 atorvastatin 10 mg Tablet 10 mg PO DAILY RF: 0 lisinopril 20 mg Tablet 20 mg PO DAILY RF: 0 furosemide 80 mg Tablet 80 mg PO DAILY RF: 0 triamcinolone acetonide 0.1 % Ointment 1 applic TOPICAL BID RF: 0 sertraline 50 mg Tablet 50 mg PO DAILY RF: 0 Novolin R Flexpen 100 unit/mL (3 mL) Insulin Pen 0 unit SUBCUT UD RF: 0 Novolin N Flexpen 100 unit/mL (3 mL) Insulin Pen 17 unit SUBCUT BID RF: 0 Referrals Referrals: Gem RICKETTS [Primary Care Provider] -
[2019-12-11 13:14] LABS: Albumin Level 3.5 gm/dl (3.4-5.0); Bilirubin,Total 0.8 mg/dl (0.2-1); Calcium 9.1 mg/dl (8.5-10.1); Creatinine Clr Calc Pharmacy 101.4 ml/min; Est GFR (African American) 88.8; Est GFR (Non-African American) 76.7; Troponin I 0.042 ng/ml (0-0.045)
[2019-12-11 13:20] LABS: Albumin Globulin Ratio 0.8 (0.9-2); Globulin 4.3 gm/dl (2.5-4.0); Potassium 4.5 mmol/L (3.5-5.1); Total Protein 7.8 gm/dl (6.4-8.2)
--- NOTE | 2019-12-11 16:09 | History & Physical Report ---
Date of Service December 11, 2019 Assessment & Plan (1) Hypertensive emergency: Noted to have very high blood pressure at the facility with systolic more than 200 and diastolic more than 140 without any symptoms Blood pressure is reasonably improved with 2 doses of intravenous labetalol He has been taking his medications regularly to control blood pressure and took dose this morning We will need to observe in the hospital for now Denies any symptoms Continue all of his outpatient medications Will have as needed medications to control blood pressure to (2) Diabetes mellitus, type II: Continue usual doses of insulin and put him on sliding scale coverage (3) CHF (congestive heart failure): No signs and or symptoms of fluid overload (4) Psoriasis: Continue current meds (5) Glaucoma: No acute eye pain (6) HLD (hyperlipidemia): Continue statin DVT prophylaxis Subcu heparin CODE STATUS Full code History of Present Illness Chief Complaint: Noted to have very high blood pressure with systolic more than 200 diastolic more than 140 at the facility Primary Care Provider: LILIAM Rabago He is a 34-year-old obese male with significant past medical history of hypertension, hyperlipidemia diabetes type 2 on insulin, CHF , glaucoma and psoriasis was noted to have a very high blood pressure at the facility today. He denies any symptoms of chest pain, palpitation or shortness of breath. He did not have any headache and no blurred vision and denies any numbness and or tingling involving any of the extremities. Denies any nausea and or vomiting. He was also told that he might have atrial fibrillation which was noted at the facility. He required 2 doses of intravenous labetalol to lower the blood blood pressure at a reasonable level and he mentioned that he took all of his blood pressure medications this morning Was admitted to medical telemetry unit for observation. Allergies Allergy/AdvReac Type Severity Reaction Status Date / Time No Known Drug Allergies Allergy Unknown Unverified 12/11/19 14:20 Home Medications Home Medications Medication Instructions Recorded Confirmed Type atorvastatin 10 mg PO DAILY 12/11/19 12/11/19 History carvedilol 12.5 mg PO BID 12/11/19 12/11/19 History furosemide 80 mg PO DAILY 12/11/19 12/11/19 History insulin NPH isoph U-100 human 17 unit SUBCUT BID 12/11/19 12/11/19 History [Novolin N Flexpen] insulin regular human [Novolin R 0 unit SUBCUT UD 12/11/19 12/11/19 History Flexpen] latanoprost 1 drp OPB HS 12/11/19 12/11/19 History lisinopril 20 mg PO DAILY 12/11/19 12/11/19 History sertraline 50 mg PO DAILY 12/11/19 12/11/19 History triamcinolone acetonide 1 applic TOPICAL BID 12/11/19 12/11/19 History Past Med/Surg History Medical History Abnormal EKG CHF (congestive heart failure) No recent exacerbation Congenital heart anomaly Diabetes mellitus, type II Glaucoma HLD (hyperlipidemia) HTN (hypertension) Mild concentric left ventricular hypertrophy (LVH) Psoriasis Surgical History History of cardiac catheterization History of esophagogastroduodenoscopy (EGD) Family History Other Diabetes Hypertension Social History Smoking Status: Former smoker Second Hand Exposure: No; Hx Alcohol Use: No Hx Substance Use: Yes Last Used Substance Other:: Last used 1 year ago Preferred Language: Slovak Communication Ability: Effective Infectious Disease Physician Required: No Beliefs That Will Affect Care: None Current Living Situation: Other Current Living Situation Comment: LILIAM Rabago Feels Safe at Home: Yes Assistive Devices: None Review of Systems Review of Systems: All systems reviewed & are unremarkable except as noted in HPI & below Physical Exam Physical Exam: Lying in bed comfortably Constitutional: well developed, well nourished and + obese; no acute distress and not ill appearing Eyes: PERRL, conjunctivae normal, anicteric sclerae ENMT: external ear and nose normal, oropharynx normal Neck: trachea midline, no thyromegaly Respiratory: normal respiratory effort; no respiratory distress A uscultation: lungs clear to auscultation bilaterally Cardiovascular: Rate/Rhythm: regular rate and regular rhythm Heart Sounds: no murmur Extremities: no edema Gastrointestinal (Abdomen): Inspection/Auscultation: abdomen normal to inspection and normal bowel sounds; abdomen not distended Percussion/Palpation: abdomen soft; abdomen nontender Musculoskeletal: No acute arthritis involving any joint Skin: Has generalized psoriasis Neurologic: moves all extremities; no focal motor deficits Psychiatric: A+Ox3, euthymic affect Lymphatic: no cervical or axillary lymphadenopathy Results & Data Results & Data ([facility]) Vital Signs (Past 12 Hours) Vital Signs Temp Pulse Resp BP Pulse Ox 12/11/19 15:50 74 22 155/114 H 94 12/11/19 15:40 88 20 177/122 H 95 12/11/19 15:30 78 20 96 12/11/19 15:22 79 22 189/119 H 95 12/11/19 15:20 78 19 96 12/11/19 15:14 81 21 183/130 H 96 12/11/19 15:10 79 20 95 12/11/19 15:00 81 23 187/133 H 96 12/11/19 14:50 84 18 95 12/11/19 14:40 82 20 96 12/11/19 14:30 81 19 195/128 H 96 12/11/19 14:20 83 19 94 12/11/19 14:10 80 20 94 12/11/19 14:00 81 18 178/127 H 94 12/11/19 13:50 82 18 95 12/11/19 13:40 81 21 95 12/11/19 13:30 80 21 190/130 H 95 12/11/19 13:21 88 22 95 12/11/19 13:19 91 H 16 189/131 H 96 12/11/19 13:10 91 H 21 95 12/11/19 13:09 90 22 95 12/11/19 13:00 91 H 22 204/145 H 95 12/11/19 12:33 37.5 C 91 H 22 223/148 H 93 Laboratory Results Short CBC 12/11/19 Range/Units 12:30 WBC 8.63 (4.8-10.8) K/uL Hgb 15.9 (14.0-18.0) g/dL Hct 44.3 (42-52) % Plt Count 243 (130-400) K/uL BMP 12/11/19 12:30 Sodium 135 L Potassium 4.5 Chloride 102 Carbon Dioxide 28 BUN 21 H Creatinine 1.23 Glucose 336 H* Calcium 9.1 Cardiac Enzymes 12/11/19 Range/Units 12:30 Troponin I 0.042 (0-0.045) ng/ml Liver Function 12/11/19 Range/Units 12:30 Total Bilirubin 0.8 (0.2-1) mg/dl AST 24 (15-37) U/L ALT 24 (12-78) U/L Alkaline Phosphatase 102 (45-117) U/L Albumin 3.5 (3.4-5.0) gm/dl
[2019-12-11] MEDS ORDERED: hydrALAZINE HCL 20 MG/ML VIAL IV PRN (16:30)
--- NOTE | 2019-12-11 17:57 | Electrocardiogram Report ---
Test Reason : Blood Pressure : / mmHG Vent. Rate : 092 BPM Atrial Rate : 092 BPM P-R Int : 174 ms QRS Dur : 080 ms QT Int : 368 ms P-R-T Axes : 027 -03 137 degrees QTc Int : 455 ms Normal sinus rhythm Possible Left atrial enlargement Anterior infarct , age undetermined Abnormal ECG When compared with ECG of 09-JUL-2019 06:23, Anterior infarct is now Present T wave inversion no longer evident in Inferior leads T wave inversion less evident in Anterolateral leads Confirmed by Senthil Eaton ([id number]) on 12/11/2019 5:57:50 PM Referred By: [facility] Confirmed By:Derek Eaton
[2019-12-11] MEDS ORDERED: GLUCOSE 10 TABS/TUBE PO PRN (19:45)
[2019-12-11] MEDS ORDERED: DEXTROSE 50% 50 ML SYRINGE IV PRN (19:45)
[2019-12-11] MEDS ORDERED: CARBOHYDRATES FOR HYPOGLYCEMIA PO PRN (19:45)
[2019-12-11] MEDS ORDERED: GLUCOSE 40% GEL 15 GM TUBE PO PRN (19:45)
[2019-12-11] MEDS ORDERED: GLUCAGON FOR INJ 1 MG VIAL IM PRN (19:45)
[2019-12-11] MEDS: INSULIN ASPART 100 UNITS/ML 3 ML PEN SC SCH (21:18)
[2019-12-11] MEDS: TRIAMCINOLONE ACET 0.1% OINT 15 GM TUBE TOP SCH (21:48)
[2019-12-11] MEDS: LATANOPROST 0.005% OP SOLN 2.5 ML BTL OPB SCH (21:48)
[2019-12-11] MEDS: carvediloL 12.5 MG TAB PO SCH (21:48)
[2019-12-11] MEDS: INSULIN HUMAN NPH SQ SCH (21:49)
[2019-12-11] MEDS ORDERED: lisinopriL 10 MG TAB PO STA (22:56)
[2019-12-12] MEDS: ACETAMINOPHEN 325 MG TAB PO PRN (00:14)
[2019-12-12 07:36] LABS: Basophils # (auto) 0.04 K/uL (0-0.2); Basophils % (auto) 0.4 %; Eosinophils % (auto) 2.9 %; Hematocrit (blood only) 42.6 % (42-52); Hemoglobin 15.5 g/dL (14.0-18.0); Immature Granulocytes # (auto) 0.02 K/uL (0.00-0.02); Immature Granulocytes % (auto) 0.2 %; Lymphocytes # (auto) 2.24 K/uL (1.2-3.4); Lymphocytes % (auto) 21.6 %; Mean Corpuscular Hgb Conc 36.4 g/dL (32-36); Mean Corpuscular Volume 85.2 fL (80-100); Mean Platelet Volume 10.2 fL (7.4-10.4); Monocytes # (auto) 0.75 K/uL (0.11-0.59); Monocytes % (auto) 7.2 %; Neutrophils # (auto) 7.04 K/uL (1.4-6.5); Neutrophils % (auto) 67.7 %; Platelet Count 254 K/uL (130-400); RDW Coefficient of Variation 13.6 % (11.5-14.5); RDW Standard Deviation 41.6 fL (36.4-46.3); White Blood Count 10.39 K/uL (4.8-10.8)
--- NOTE | 2019-12-12 07:45 | CT Scan Report ---
CT head/brain wo con CLINICAL HISTORY: Severe headache COMPARISON STUDY: 07/08/2019 TECHNIQUE: Axial CT of the brain is performed from the vertex to the skull base. IV contrast was not administered for this examination. A dose lowering technique was utilized adhering to the principles of ALARA. CT DOSE: 614.27 mGy.cm FINDINGS: No intra or extra-axial mass lesions are visualized. There is no CT evidence of acute cortical infarc tion. There is no evidence of midline shift. There is no acute hemorrhage. No calvarial fractures ar e visualized. There is a stable white matter hypodensity adjacent to the anterior horn of left lateral ventricle. T here are progressive periventricular white matter hypodensities including new lesions adjacent to the anterior horn right lateral ventricle and in the region the right external capsule There is no evidence of pathologic ventricular dilatation. There is no evidence of acute sinusitis IMPRESSION: 1. No evidence of acute hemorrhage 2. Progressive unexplained periventricular white matter hypodensities. This could indicate demyelinat ing disease, or age accelerated ischemic disease. Clinical correlation is recommended. Further workup is advocated given the young age of this patient. ACT 112: Negative or not required by law. Electronically signed by: Saurabh Dennis M.D. 12/12/2019 7:44 AM
[2019-12-12 08:12] LABS: BUN Creatinine Ratio 18.7 (10-20); Creatinine Clr Calc Pharmacy 98.2 ml/min; Est GFR (African American) 85.5; Est GFR (Non-African American) 73.7; Potassium 3.5 mmol/L (3.5-5.1)
[2019-12-12] MEDS: INSULIN ASPART 100 UNITS/ML 3 ML PEN SC SCH ×4 (08:18→20:53)
[2019-12-12] MEDS: INSULIN HUMAN NPH SQ SCH ×2 (08:19→17:41)
[2019-12-12] MEDS: ATORVASTATIN 10 MG TAB PO SCH (08:20)
[2019-12-12] MEDS: FUROSEMIDE 80 MG TAB PO SCH (08:20)
[2019-12-12] MEDS: lisinopriL 10 MG TAB PO SCH (08:21)
[2019-12-12] MEDS: SERTRALINE HCL 50 MG TABLET PO SCH (08:21)
[2019-12-12] MEDS: TRIAMCINOLONE ACET 0.1% OINT 15 GM TUBE TOP SCH ×2 (08:22→20:19)
[2019-12-12] MEDS: carvediloL 12.5 MG TAB PO SCH ×2 (08:22→20:20)
[2019-12-12] MEDS ORDERED: lisinopriL 20 MG TAB PO SCH (09:00)
--- NOTE | 2019-12-12 12:48 | Electrocardiogram Report ---
Test Reason : Blood Pressure : / mmHG Vent. Rate : 074 BPM Atrial Rate : 074 BPM P-R Int : 166 ms QRS Dur : 084 ms QT Int : 422 ms P-R-T Axes : 049 097 184 degrees QTc Int : 468 ms Normal sinus rhythm Possible Left atrial enlargement Rightward axis Prolonged QT Abnormal ECG When compared with ECG of 11-DEC-2019 12:29, ST more depressed Lateral leads Inverted T waves have replaced nonspecific T wave abnormality in Inferior leads T wave inversion more evident in Lateral leads Confirmed by Senthil Eaton ([id number]) on 12/12/2019 12:47:37 PM Referred By: [facility] Confirmed By:Derek Eaton
--- NOTE | 2019-12-12 17:30 | Consultation Report ---
DATE OF CONSULTATION: 12/12/2019 REASON FOR CONSULTATION: Abnormal CT of the head. HISTORY OF PRESENT ILLNESS: The patient is a 34-year-old with hypertension, diabetes, hyperlipidemia and former cigarette smoker. The patient was relatively asymptomatically found to have marked elevation in blood pressure and was therefore transported to this facility. His blood pressure on admission to our facility was 223/148. The patient indicates the only headache he had was when his blood pressure dropped precipitously. It was a mild headache, which resolved with Tylenol. He has not had any recent neurologic symptoms such as numbness, weakness, tingling, or sudden visual loss. The patient does give a history of bout of congestive heart failure in 11/2018 where he was acutely ill, generally weak and ataxic, all of which responded to treatment for his congestive heart failure. I believe since that time, he had been on aspirin in addition to other medications. Aspirin was not resumed when the patient returned to long term in 03/2019. In terms of any prior history of neurologic dysfunction, the patient has noted for months a tendency to have episodes of impaired vision in the left eye. Complicating this is that he appears to have diabetic retinopathy and has glaucoma. The glaucoma is worse in the left eye and apparently he has fixed field defects from glaucoma. The patient will report several times a month that primarily upon awakening his vision is blurred and appears to have blind spots that improve as the day goes on. This is only in the left eye. No clear scintillation and although he occasionally has throbbing headaches, headache does not follow this visual phenomenon. It is not clear to this examiner when the patient was last seen by ophthalmology. Otherwise, the patient has noted no unilateral weakness, numbness, speech or language dysfunction. He has numbness in bilateral lower extremities with some paresthesias presumably related to diabetic neuropathy. He has no history of diplopia or sudden blindness of several days' duration with eye pain. No history of a Lhermitte's phenomenon. In general, his gait is mildly wide-based, but that has been gradual in onset. The patient indicates that he rarely misses medications. He may have missed 3 days of one of his antihypertensives about 10 days ago. He indicates that his diabetes is not well controlled and that he has only been on a statin for the last year or so. He stopped smoking in 2015. He has a strong family history of vascular disease. His mother had renal failure from hypertension and diabetes and at age 56. The patient has no history of DVT, PE or cancer, rheumatic fever or murmur. There is mentioned in the chart that at the [facility], an EKG may have showed atrial fibrillation. PAST MEDICAL HISTORY: Notable for an abnormal EKG, congestive heart failure, congenital heart anomaly, insulin-dependent diabetes, glaucoma, hyperlipidemia, hypertension, mild concentric left ventricular hypertrophy and psoriasis. The patient had taken Enbrel and then Humira last 2016 ; they were not effective for his psoriasis. The patient was hospitalized at our facility for epistaxis. The patient's hematocrit on that admission was 24. He was not on antiplatelet therapy at that time. The patient notes rare minor nosebleeds. PAST SURGICAL HISTORY: The patient reports a cardiac catheterization, at which time he was told that he had had a myocardial infarction in the past. He has had an esophagogastroduodenoscopy. FAMILY HISTORY: As above. No family history of neurologic disease. SOCIAL HISTORY: Discontinued smoking, does not currently drink alcohol. Remotely used cocaine. 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 ALLERGIES: There are no known drug allergies. CURRENT MEDICATIONS: Insulin, atorvastatin, Coreg, Lasix, NPH, Xalatan, sertraline, triamcinolone, lisinopril. LABORATORY DATA: Hemoglobin, hematocrit, white count and platelet count were unremarkable. Sodium was 135, BUN 21, glucose 336. PT 10.3, INR 1.0. CT of the head, noncontrast, which I have reviewed and compared to a prior imaging study shows progressive periventricular white matter hypodensities could indicate demyelinating disease or age-accelerated ischemic disease. Chest x-ray, no active disease in the chest. EKG; normal sinus rhythm, possible left atrial enlargement, rightward axis, prolonged QT. When compared to EKG of 10/11/2019, ST more depressed in lateral leads, inverted T waves have replaced nonspecific T-wave abnormalities. PHYSICAL EXAMINATION: VITAL SIGNS: 36.9, 82, 18, 131/77. GENERAL: The patient is awake, alert, and oriented x3. He is an excellent historian. His speech is unremarkable. Repetitions, naming, 3-step commands are unremarkable. There is no right/left confusion. NECK: There are no carotid bruits. HEART: No heart murmurs. Heart is regular rate and rhythm. ABDOMEN: There is mild tenderness in the right lower quadrant without rebound. Normal bowel sounds are noted. SKIN: Psoriatic changes are noted on the extensor surfaces of the forearms, on the hands and on the knees and shins. NEUROLOGIC: Pupils are equal, round and reactive to light. There is no afferent pupillary defect. There are retinal hemorrhages seen in both eyes. I believe I see venous pulsations and there is no papilledema. Visual swann are normal in the right eye. In the left eye, he has some generalized difficulty with more difficulty in the left superior temporal quadrant. Motility is normal. There is normal facial sensation. 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 Tongue is midline. Speech is nondysarthric. Motor 5/5, no drift. Normal rapid alternating movements. Symmetric reflexes. Diminished knee jerks, absent ankle jerks, downgoing toes. Vibration is present at the ankles. There is approximately a knee level to temperature. No asymmetry kjdr-te-gbxe to temperature is noted. Yzmsur-ss-ecul is normal. No dysdiadochokinesia. Eiek-qw-otif is normal. IMPRESSION AND PLAN: 1. This patient appears to have a fairly extensive small vessel cerebrovascular disease, which is out of proportion to his age, but not necessarily out of proportion to his vascular risk factors. Recommend MRI of the brain with and without contrast as demyelinating disease is within the differential. He does not give a history that is suggestive of demyelinating disease nor does he particularly give a history of symptomatic strokes. I would include an MRA of the head and neck to assess the carotid given his discussion of episodic graying out of vision in the left eye. I suspect this is glaucomatous, but it is important to rule out high-grade stenosis of the left internal carotid artery. Recommend instituting aspirin 81 mg once a day, better control of blood sugar, blood pressure. Goal LDL of 70 or less, outpatient ophthalmology evaluation. 2. The bulk of the disease on CT appears to be deep and periventricular. I think an MRI of the brain will assess whether or not there have been any cortical infarctions. I would recommend a repeat echocardiogram looking for clot and trying to establish whether or not the patient has atrial fibrillation. 3. History of migraine, none recently. 4. Relatively severe neuropathy, most likely diabetic. 5. Apparent diabetic retinopathy. We will follow with you.
[2019-12-12] MEDS: ASPIRIN 81 MG CHEW PO SCH (17:38)
--- NOTE | 2019-12-12 19:11 | Magnetic Resonance Report ---
MR angio head wo con HISTORY: 34 years-old Male small vs cvd on mri hypertension. Periventricular white matter hypodensit ies described on comparison head CT. COMPARISON: Head CT 12/12/2019 TECHNIQUE: MRA of the head was obtained without the use of IV contrast utilizing 3-D eudf-ue-nskoss s equencing with MIP reformats. All measurements were obtained according to NASCET criteria. FINDINGS: The imaged bilateral internal carotid arteries are widely patent. The middle and anterior cerebral ar teries are also widely patent. Diminutive left A1 segment, likely developmental. The imaged vertebral arteries are also patent. The basilar and posterior cerebral arteries are patent. origin of th e left posterior cerebral artery. No aneurysm, dissection, high-grade stenosis or proximal branch occ lusion. IMPRESSION: Unremarkable MRA of the head. ACT 112: Negative or not required by law. The above report was generated using voice recognition software. It may contain grammatical, syntax o r spelling errors. Electronically signed by: Walter Meadows M.D. 12/12/2019 7:10 PM
[2019-12-12] MEDS ORDERED: GADOBUTROL 65ML VIAL IV ONE (19:34)
--- NOTE | 2019-12-12 20:12 | Magnetic Resonance Report ---
MR brain wo/w con HISTORY: 34 years-old Male white matter changes, ct, mult vasc risk acute hypertension with history of glaucoma COMPARISON: Head CT of same day and also 07/08/2019 TECHNIQUE: Multiplanar multisequence MRI of the brain was obtained both with and without the use of 9 .5 mL Gadavist. FINDINGS: Battery [employer]er [employer] localizer images demonstrate no gross extracranial abnormality. There is no restricted diffusio n to suggest acute or subacute infarct. Midline structures including the brainstem, optic chiasm and pituitary and pineal glands appear unremarkable the sagittal T1 series. No cerebellar tonsillar herni ation. The imaged cervical spine is unremarkable. No acute intracranial hemorrhage, midline shift, abnormal extra-axial collection, hydrocephalus or in tracranial mass. The cerebral venous sinuses and major arterial flow voids at the level the skull bas e appear patent. Trace left mastoid effusion. Mild polypoid mucosal thickening of the right maxillary sinus with minimal mucosal thickening of the ethmoid air cells. The skull, orbits and soft tissues a re unremarkable. There is no abnormal intra-axial or extra-axial enhancement. Moderate periventricula r predominate T2/FLAIR hyperintensities are noted within the white matter of the bilateral cerebral h emispheres, predominantly within the periventricular distributions and also within the subcortical re gions. Several foci are also noted involving the corpus callosum. No infratentorial lesions identifie d. The imaged cervical spinal cord appears normal. IMPRESSION: 1. No acute intracranial abnormality or abnormal enhancement. 2. Moderate periventricular predominant T2/FLAIR hyperintensities within the bilateral cerebral hemis pheres are noted in addition to several T2 hyperintense foci noted throughout the corpus callosum. Th dallas findings are most suspicious for a demyelinating process such as multiple sclerosis. Chronic micr ovascular ischemic disease considered less likely. ACT 112: Negative or not required by law. The above report was generated using voice recognition software. It may contain grammatical, syntax o r spelling errors. Electronically signed by: Walter Meadows M.D. 12/12/2019 8:10 PM
[2019-12-12] MEDS: LATANOPROST 0.005% OP SOLN 2.5 ML BTL OPB SCH (20:20)
--- NOTE | 2019-12-12 20:27 | Magnetic Resonance Report ---
MR angio neck wo/w con HISTORY: 34 years-old Male recurrent visual loss left eye recurrent vision loss of the left thigh wi th hypertension and glaucoma. COMPARISON: MRA head of same day TECHNIQUE: MRA of the neck was obtained both with and without the use of 9.5 mL Gadavist utilizing 3- D gbwa-qd-mjhtex sequencing with MIP reformats. All measurements were obtained according to NASCET cr iteria. FINDINGS: The bilingual counter sales retail localizer images demonstrate no gross abnormality. Study is motion degraded. The bilateral common and internal carotid arteries are widely patent and unremarkable. Codominant and patent verteb ral arteries. No aneurysm, dissection, high-grade stenosis or proximal branch occlusion. IMPRESSION: Unremarkable MRA of the neck. ACT 112: Negative or not required by law. The above report was generated using voice recognition software. It may contain grammatical, syntax o r spelling errors. Electronically signed by: Walter Maedows M.D. 12/12/2019 8:26 PM
--- NOTE | 2019-12-12 21:41 | Hospitalist Progress Note ---
Date of Service Late entry date of service noted below December 12, 2019 Assessment & Plan (1) Hypertensive emergency: Per admitting service notes Noted to have very high blood pressure at the facility with systolic more than 200 and diastolic more than 140 without any symptoms Blood pressure is reasonably improved with 2 doses of intravenous labetalol He has been taking his medications regularly to control blood pressure and took dose this morning We will need to observe in the hospital for now Denies any symptoms Continue all of his outpatient medications Will have as needed medications to control blood pressure 12/12/2019 Lisinopril increased to 30 mg p.o. daily Blood pressure is now under control Continue to monitor Right lower quadrant pain Rule out nephro, urolithiasis Likely CT abdomen pelvis with no contrast Doubt appendicitis, given evidence of fever and leukocytosis, if CT without contrast unrevealing, may need to order CT with contrast Abnormal CT scan findings Positive periventricular white matter changes Neurology altered MRI and MRA of the brain ordered A fib? No atrial fibrillation on telemetry Coronary Artery Calcification No active chest pain Already on aspirin, statin, beta-juancho, lisinopril (2) Diabetes mellitus, type II: Continue usual doses of insulin and put him on sliding scale coverage (3) CHF (congestive heart failure): No signs and or symptoms of fluid overload (4) Psoriasis: Continue current meds (5) Glaucoma: No acute eye pain (6) HLD (hyperlipidemia): Continue statin DVT prophylaxis Subcu heparin CODE STATUS Full code Admission and Anticipated Discharge Date Admission Date: December 11, 2019 Subjective Follow-up for hypertensive urgency Seen resting in bed, comfortable, not in distress Blood pressure is much better Denies headache, dizziness, chest pain, shortness of breath Reports progressive right lower quadrant pain, started last May Denies fevers or chills, dysuria or hematuria Denies focal neurologic deficits No other symptoms Review of Systems Review of Systems: All systems reviewed & are unremarkable except as noted in Subjective Physical Exam Physical Exam: General- oriented x 3, not in distress, speaks in sentences with no effort or accessory muscle use Head- atraumatic Eyes- PERRL, EOMI, anicteric ENT- oropharynx clear Neck- supple, no JVD, no adenopathy, no thyromegaly; carotids +2/2, no bruits appreciated Lungs- clear to auscultation bilaterally, no rales/wheezes Heart- normal rate, regular rhythm; no murmur, no gallop, no rub appreciated Abdomen- normal bowel sounds, nondistended, soft, mild right lower quadrant tenderness, no masses or hepatosplenomegaly Extremities- Positive psoriatic plaques on all extremities no pretibial edema, no calf tenderness; peripheral pulses intact Neuro- alert, oriented x 3; CN 2-12 grossly intact; motor 5/5 bilaterally;sensation 100% on all extremities; no other gross focal neurologic deficits Skin- warm & dry Results & Data Results & Data ([facility]) Vital Signs (Past 12 Hours) Vital Signs Temp Pulse Resp BP Pulse Ox 12/12/19 14:46 36.9 C 82 18 131/77 96 12/12/19 11:06 36.6 C 76 18 116/76 95 Laboratory Results Laboratory Results - last 24 hr 12/12/19 12/12/19 12/12/19 07:15 07:15 07:32 WBC 10.39 RBC 5.00 Hgb 15.5 Hct 42.6 MCV 85.2 MCH 31.0 MCHC 36.4 H RDW Std Deviation 41.6 RDW Coeff of Wendy 13.6 Plt Count 254 MPV 10.2 Immature Gran % (Auto) 0.2 Neut % (Auto) 67.7 Lymph % (Auto) 21.6 Lee % (Auto) 7.2 Eos % (Auto) 2.9 Baso % (Auto) 0.4 Neut # (Auto) 7.04 H Lymph # (Auto) 2.24 Lee # (Auto) 0.75 H Eos # (Auto) 0.30 Baso # (Auto) 0.04 Immature Gran # (Auto) 0.02 Sodium 136 Potassium 3.5 D Chloride 102 Carbon Dioxide 29 Anion Gap 5.0 BUN 24 H Creatinine 1.27 Est Cr Clr Drug Dosing 98.2 Est GFR ( Amer) 85.5 Est GFR (Non-Af Amer) 73.7 BUN/Creatinine Ratio 18.7 Glucose 151 H POC Glucose 156 H Calcium 9.0 12/12/19 12/12/19 12/12/19 11:26 16:40 20:36 WBC RBC Hgb Hct MCV MCH MCHC RDW Std Deviation RDW Coeff of Wendy Plt Count MPV Immature Gran % (Auto) Neut % (Auto) Lymph % (Auto) Lee % (Auto) Eos % (Auto) Baso % (Auto) Neut # (Auto) Lymph # (Auto) Lee # (Auto) Eos # (Auto) Baso # (Auto) Immature Gran # (Auto) Sodium Potassium Chloride Carbon Dioxide Anion Gap BUN Creatinine Est Cr Clr Drug Dosing Est GFR ( Amer) Est GFR (Non-Af Amer) BUN/Creatinine Ratio Glucose POC Glucose 163 H 180 H 148 H Calcium
--- NOTE | 2019-12-12 22:17 | CT Scan Report ---
CT SCAN OF THE ABDOMEN AND PELVIS WITHOUT IV CONTRAST CLINICAL HISTORY: Right lower quadrant abdominal pain. COMPARISON STUDY: No priors. TECHNIQUE: CT scan of the abdomen and pelvis is performed from the lung bases to the proximal femora. Images are reviewed in the axial, sagittal, and coronal planes. IV contrast was not administered for this examination. A dose lowering technique was utilized adhering to the principles of ALARA. CT DOSE: 568.05 mGy.cm FINDINGS: Lung bases: The heart is normal in size and without pericardial effusion. There is age advanced ather osclerotic calcification of the coronary arteries. A tiny hiatal hernia is noted. The lung bases are clear. Liver: The unenhanced liver is normal in size, contour, and attenuation. There is no intrahepatic ellyn iary ductal dilatation. Gallbladder: Unremarkable. Spleen: Normal in size and attenuation. Pancreas: Unremarkable. Adrenal glands: Unremarkable. Kidneys: The unenhanced kidneys are normal in size and without hydronephrosis. There are no renal vignesh culi identified. There is no evidence of contour deforming renal mass lesion. Abdominal vasculature: The abdominal aorta is normal in course and caliber. Bowel: There is no bowel obstruction. Mild fecal retention is seen throughout the colon. The appendix is well-visualized and normal. Peritoneum: There is no intraperitoneal free air or abdominal ascites. Lymphadenopathy: None. Pelvic viscera: The bladder is mildly distended but otherwise normal in appearance. The prostate and seminal vesicles are normal as visualized. There are small bilateral fat-containing inguinal hernias. Skeletal structures: No lytic or blastic lesions are seen. IMPRESSION: 1. There are no acute infectious or inflammatory findings in the abdomen or pelvis. 2. There is age advanced coronary artery calcification. Consider nonemergent cardiology follow-up. ACT 112: Negative or not required by law. Electronically signed by: Parvez Paris M.D. 12/12/2019 10:16 PM
[2019-12-13] MEDS: carvediloL 12.5 MG TAB PO SCH ×2 (08:29→21:10)
[2019-12-13] MEDS: ATORVASTATIN 10 MG TAB PO SCH (08:30)
[2019-12-13] MEDS: FUROSEMIDE 80 MG TAB PO SCH (08:30)
[2019-12-13] MEDS: TRIAMCINOLONE ACET 0.1% OINT 15 GM TUBE TOP SCH ×2 (08:30→21:12)
[2019-12-13] MEDS: lisinopriL 10 MG TAB PO SCH (08:30)
[2019-12-13] MEDS: ASPIRIN 81 MG CHEW PO SCH (08:31)
[2019-12-13] MEDS: INSULIN HUMAN NPH SQ SCH ×2 (08:32→17:14)
[2019-12-13] MEDS: INSULIN ASPART 100 UNITS/ML 3 ML PEN SC SCH ×4 (08:33→21:12)
[2019-12-13] MEDS: SERTRALINE HCL 50 MG TABLET PO SCH (09:09)
[2019-12-13 11:26] LABS: Lyme Ab IgG w/WB Rflx Negative (Negative); Lyme Ab IgM w/WB Rflx Negative (Negative)
--- NOTE | 2019-12-13 11:39 | Progress Notes ---
DATE: 12/13/2019 SUBJECTIVE: I am seeing Mr. Ho in followup. He was admitted with hypertensive urgency. A CT of the head showed periventricular white matter changes. The patient's MRI of the brain, which I have reviewed, shows no acute abnormality and no enhancement, moderate periventricular predominant T2 FLAIR hyperintensities within the bilateral cerebral hemispheres as noted and several T2 hyperintense foci noted through the corpus callosum. These findings are suspicious for demyelinating process such as multiple sclerosis, chronic microvascular ischemic changes considered less likely. None of these lesions were infratentorial. MRA of head and neck were unremarkable. VITAL SIGNS: The patient's blood pressure has been generally better controlled over the evening. Blood pressure max this morning 149/92, 37.2, 81, 20. The patient reports no neurologic symptoms. The patient was not reexamined. IMPRESSION AND PLAN: This patient has multiple vascular risk factors, which are not well controlled including diabetes, hypertension, hyperlipidemia. He is a former cigarette smoker. The differential of the white matter changes include demyelinating disease and microvascular disease. Radiographic findings favoring demyelinating disease include involvement of the corpus callosum and periventricular lesions. The patient does not give a history that is consistent with a relapsing remitting disease nor any symptoms that would be typically associated with multiple sclerosis such as optic neuritis, trigeminal neuralgia, Lhermitte's phenomenon. The patient does have abnormalities on his exam, which are consistent with diabetic neuropathy. He has evidence of retinopathy and is known to have glaucoma. Would recommend MRI of the cervical spine with and without contrast as vascular disease would not typically cause cord lesions and theoretically, a lumbar puncture to follow. When a lumbar puncture is done, it should include cell count, protein, glucose, VDRL, cytology, oligoclonal bands, IgG synthesis rate and myelin basic protein, Lyme, routine culture and sensitivity, AFB, and fungal culture and sensitivity. These depending on the patient's length of stay could be arranged as an outpatient. I discussed this at length with the patient and he appears to understand. In the interim, clearly, the patient has vascular risk factors, should use antiplatelet therapy with aspirin and control risk factors. There is mentioned by history that there may have been atrial fibrillation at the residential. Defer to the hospitalist team whether or not the patient needs a repeat echo and potentially an outpatient perfume maker such as a Zio. I would be glad to see the patient in followup post discharge. The patient is in the parole process and is [facility]. If he does not see myself in followup, he will need to see a neurologist in the region where he resides. This is likely a good case to refer to one of the [place] neurologists at [place]. Dr. Beth Stinson would be an excellent choice.
[2019-12-13] MEDS ORDERED: GADOBUTROL 30ML VIAL IV ONE (13:09)
--- NOTE | 2019-12-13 13:41 | Magnetic Resonance Report ---
MRI OF THE CERVICAL SPINE WITH AND WITHOUT CONTRAST CLINICAL HISTORY: Possible multiple sclerosis. Evaluate for cord lesion. COMPARISON: None. TECHNIQUE: Utilizing a 1.5 Anay magnet and dedicated coil, multiplanar, multiecho imaging of the ce rvical spine was performed before and after intravenous administration of 9.5 of Gadavist. FINDINGS: Alignment of the cervical spine is anatomic. Vertebral body heights are maintained. Disc spaces are p reserved. Paravertebral soft tissues are unremarkable. Cervical cord signal is suboptimally assessed on this exam given motion artifact. However, no cord signal abnormality is identified on this exam. T here is no abnormal enhancement within the cervical canal. C2-C3: The central canal and neural foramen are patent. C3-C4: The central canal and neural foramen are patent. C4-C5: The central canal and neural foramen are patent. C5-C6: The central canal and neural foramen are patent. C6-C7: Central canal and neural foramen are patent. C7-T1: The central canal and neural foramen are patent. IMPRESSION: 1. No cervical cord signal abnormality identified although exam mildly compromised by motion artifact . 2. Unremarkable MRI of the cervical spine. Patent central canal and neural foramen. No abnormal enhan cement within the cervical canal. ACT 112: Negative or not required by law. Electronically signed by: David Banda M.D. 12/13/2019 1:39 PM
--- NOTE | 2019-12-13 20:07 | Hospitalist Progress Note ---
Date of Service December 13, 2019 Assessment & Plan (1) Hypertensive emergency: Per admitting service notes Noted to have very high blood pressure at the facility with systolic more than 200 and diastolic more than 140 without any symptoms Blood pressure is reasonably improved with 2 doses of intravenous labetalol He has been taking his medications regularly to control blood pressure and took dose this morning We will need to observe in the hospital for now Denies any symptoms Continue all of his outpatient medications Will have as needed medications to control blood pressure Lisinopril increased to 30 mg p.o. daily Blood pressure is now under control Continue to monitor Right lower quadrant pain, likely musculoskeletal pain CT abdomen and pelvis: No nephrolithiasis, no appendicitis Continue outpatient follow-up White matter changes on CAT scan of the head and MRI of the brain Positive periventricular white matter changes Neurology consulted Recommend cervical spine MRI and lumbar puncture Serologic markers also ordered A fib? Discussed with PA from [facility] service Apparently while an echocardiogram was being performed, atrial fibrillation was suspected based on imaging EKG from the [facility] was sinus rhythm EKG on admission also sinus rhythm, no A. fib trial fibrillation noted during telemetry monitoring May need monitor car operator Coronary Artery Calcification No active chest pain Already on aspirin, statin, beta-juancho, lisinopril Does report exertional chest pain Patient reports admission to [facility] in [facility] back in November 2018, for evaluation of chest pain, resulting to a cardiac catheterization Records being obtained from [facility] Will discuss with cardiology service (2) Diabetes mellitus, type II: Continue usual doses of insulin and put him on sliding scale coverage (3) CHF (congestive heart failure): No signs and or symptoms of fluid overload (4) Psoriasis: Continue current meds (5) Glaucoma: No acute eye pain (6) HLD (hyperlipidemia): Continue statin DVT prophylaxis Subcu heparin CODE STATUS Full code Admission and Anticipated Discharge Date Admission Date: December 11, 2019 Subjective Follow-up for hypertension Seen resting in bed, comfortable, nondistressed Denies headache, dizziness, active chest pain, shortness of breath, palpitations No focal neurologic deficits Reports chest pain on exertion No other symptoms Review of Systems Review of Systems: All systems reviewed & are unremarkable except as noted in Subjective Physical Exam Physical Exam: General- oriented x 3, not in distress, speaks in sentences with no effort or accessory muscle use Eyes- anicteric Neck- no JVD Lungs- clear breath sounds bilaterally, no rales/wheezes Heart- normal rate, regular rhythm; no murmurs Abdomen- normal bowel sounds, nondistended, soft, nontender Extremities- no pretibial edema, no calf tenderness Neuro- alert, oriented x 3; no gross focal neurologic deficits Skin- warm & dry Results & Data Results & Data ([facility]) Vital Signs (Past 12 Hours) Vital Signs Temp Pulse Resp BP BP Pulse Ox 12/13/19 19:00 36.8 C 70 18 144/94 H 97 12/13/19 15:03 37.0 C 76 18 102/68 95 12/13/19 12:04 37.0 C 76 18 143/91 H 95 Laboratory Results Laboratory Results - last 24 hr 12/12/19 12/13/19 12/13/19 20:36 07:38 10:05 ESR 17 H POC Glucose 148 H 161 H Angiotensin Convert Enz Vitamin B12 SOURAV Screen Anti-Cardiolipin IgG Ab Anti-Cardiolipin IgA Ab Anti-Cardiolipin IgM Ab Lyme Disease IgG Ab Lyme Disease IgM Ab 12/13/19 12/13/19 12/13/19 10:05 10:05 10:05 ESR POC Glucose Angiotensin Convert Enz Pending Vitamin B12 414 SOURAV Screen Anti-Cardiolipin IgG Ab Pending Anti-Cardiolipin IgA Ab Pending Anti-Cardiolipin IgM Ab Pending Lyme Disease IgG Ab Negative Lyme Disease IgM Ab Negative 12/13/19 12/13/19 12/13/19 10:05 11:31 16:46 ESR POC Glucose 173 H 139 H Angiotensin Convert Enz Vitamin B12 SOURAV Screen Pending Anti-Cardiolipin IgG Ab Anti-Cardiolipin IgA Ab Anti-Cardiolipin IgM Ab Lyme Disease IgG Ab Lyme Disease IgM Ab
[2019-12-13] MEDS: LATANOPROST 0.005% OP SOLN 2.5 ML BTL OPB SCH (21:11)
[2019-12-14] MEDS: lisinopriL 10 MG TAB PO SCH (08:35)
[2019-12-14] MEDS: carvediloL 12.5 MG TAB PO SCH ×2 (08:35→21:25)
[2019-12-14] MEDS: ASPIRIN 81 MG CHEW PO SCH (08:35)
[2019-12-14] MEDS: ATORVASTATIN 10 MG TAB PO SCH (08:35)
[2019-12-14] MEDS: INSULIN HUMAN NPH SQ SCH ×2 (08:35→17:56)
[2019-12-14] MEDS: FUROSEMIDE 80 MG TAB PO SCH (08:35)
[2019-12-14] MEDS: SERTRALINE HCL 50 MG TABLET PO SCH (08:35)
[2019-12-14] MEDS: TRIAMCINOLONE ACET 0.1% OINT 15 GM TUBE TOP SCH ×2 (08:37→21:27)
[2019-12-14] MEDS: INSULIN ASPART 100 UNITS/ML 3 ML PEN SC SCH ×4 (08:40→21:29)
[2019-12-14 12:22] LABS: Total Protein CSF 103.1 mg/dl (15-45)
[2019-12-14 12:33] LABS: Appearance CSF Clear; CSF Count Tube # 3; CSF Xanthrochromic No xanthochromia; Color CSF Colorless; Red Blood Cell CSF (A) 0 /uL (0-); Red Blood Cell CSF (B) 0 /uL (0-); White Blood Cell CSF (A) 4 /uL (0-5); White Blood Cell CSF (B) 1 /uL (0-5)
[2019-12-14] MEDS: PROMETHAZINE HCL 12.5 MG in SODIUM CHLORIDE 0.9% 50 ML IV PRN ×2 (12:43→22:20)
--- NOTE | 2019-12-14 13:59 | Operative Report (OR) ---
DATE OF OPERATION: 12/14/2019 LUMBAR PUNCTURE PROCEDURE NOTE. After informed consent, the patient was prepped and draped in a sterile fashion. 1% lidocaine was given at the L3-L4 interspace. The interspace was cannulated to moderate difficulty. The CSF was clear and colorless and was sent for appropriate studies including oligoclonal bands, myelin basic protein and IgG synthesis rate. The patient tolerated the procedure well. Note, the patient underwent a lumbar puncture today, which he tolerated well. This was performed as the patient has changes on MRI of the brain, which are suggestive for demyelinating disease. His MRI of the cervical spine was unremarkable. It will probably take a week or so to get the CSF results. I would like a [facility] to have the patient see myself or the physician's actuarial assistant in my practice within 10 days, so we can review the results. The patient will regardless require neurologic followup thereafter including even if the lumbar puncture is normal, follow followup MRIs. I attest to the content of the Intraoperative Record and any orders documented therein. Any exception s are noted below.
[2019-12-14] MEDS ORDERED: ONDANSETRON INJ 2 MG/ML 2 ML VIAL IV PRN (14:32)
--- NOTE | 2019-12-14 15:04 | Cardiology Consultation ---
Date of Consultation December 14, 2019 Assessment & Plan (1) HTN (hypertension): (2) Severe concentric left ventricular hypertrophy: The patient has a history of hypertension, dyslipidemia, and type 2 diabetes mellitus. He has a markedly abnormal resting EKG as demonstrated on 12/12/2019 with normal sinus rhythm, 74 bpm with inferior and lateral ST changes and deep T wave inversions. This is relatively unchanged compared to the previous in December 2019, as well as previous tracings performed in Jul, 2019. An echocardiogram was performed today and reviewed by the undersigned, and was compared to the echocardiogram performed in July 2019. Echocardiogram is notable for severe concentric left ventricular hypertrophy with septal thickness of 1.7 cm in diastole and posterior wall thickness of 1.7 cm in diastole. No regional wall motion abnormalities are noted. On the CT of the abdomen pelvis, there is an incidental finding of advanced coronary artery calcification for the patient's age. Per the patient's description, due to findings of lower extremity edema, and abnormal EKG he underwent a cardiac catheterization just over a year ago describes having been found to have mild nonobstructive coronary atherosclerosis. Dr. Beatty has already requested these records. The patient seems to describe stable exertional chest heaviness, I think could very likely be explained on the basis of his hypertension and severe left ventricular hypertrophy. Would recommend optimizing his blood pressure management future considerations include adding amlodipine for small vessel vascular disease. He is on an excellent medication regimen including aspirin, carvedilol, furosemide, lisinopril, and atorvastatin. I think it is most prudent to not add any new medications at present as his blood pressure is controlled today, and he just had a lumbar puncture. Await arrival of records. The differential for the severe left ventricular hypertrophy includes longstanding hypertension, a variant of hypertrophic cardiomyopathy, or an infiltrative process. His left ventricular hypertrophy is likely explained on the basis of his hypertension, but I think it would be reasonable to screen him with serum and urine immunofixation for completeness. The patient tells me he is going to be paroled soon. He plans to be in a jail house in the [facility], and then ultimately to live in the [facility] will need to seek follow-up care there. History of Present Illness Attending Physician: Zaki Howard MD History of Present Illness Mr Ho is a 34 year old male inmate at [facility] seen in cardiology consultation per the request of Dr Beatty for the evaluation of exertional chest heaviness. He was initially admitted on 12/11/2019 due to elevated blood pressure readings with systolic blood pressure in excess of 200 mmHg. At that time he denied any symptoms such as headache or chest discomfort per the admission note. His blood pressure has been under better control as his hospitalization has developed. Is found to have an abnormal CT of the brain, as well as abnormal MRI of the brain with changes suspicious for demyelinating disease such as multiple sclerosis. He is being followed by neurology, did just undergone a lumbar puncture prior to my assessment. He describes a longstanding history of high blood pressure. His blood pressure has been relatively well controlled recently and he takes his medications regularly at [facility]. He describes that in November, he was hospitalized at [facility] near [facility] with findings including lower extremity edema. He recalls being told that he had an abnormal EKG. And he underwent evaluation that included a cardiac catheterization. The report is not available at present, but the patient describes having had been found to have "mild "irregularities in his blood vessels. He describes being placed on medications including carvedilol and furosemide with interval improvement in his blood pressure and lower extremity edema. He states that with activity such as walking around the quarter mile track at the [facility] he has recent chest discomfort/pressure that is relieved with rest. He notes similar symptoms with activity such as performing sit ups. Allergies Allergy/AdvReac Type Severity Reaction Status Date / Time No Known Drug Allergies Allergy Unknown Unverified 12/11/19 14:20 Home Medications Home Medications Medication Instructions Recorded Confirmed Type atorvastatin 10 mg PO DAILY 12/11/19 12/11/19 History carvedilol 12.5 mg PO BID 12/11/19 12/11/19 History furosemide 80 mg PO DAILY 12/11/19 12/11/19 History insulin NPH isoph U-100 human 17 unit SUBCUT BID 12/11/19 12/11/19 History [Novolin N Flexpen] insulin regular human [Novolin R 0 unit SUBCUT UD 12/11/19 12/11/19 History Flexpen] latanoprost 1 drp OPB HS 12/11/19 12/11/19 History lisinopril 20 mg PO DAILY 12/11/19 12/11/19 History sertraline 50 mg PO DAILY 12/11/19 12/11/19 History triamcinolone acetonide 1 applic TOPICAL BID 12/11/19 12/11/19 History Patient History Medical History Abnormal EKG CHF (congestive heart failure) No recent exacerbation Congenital heart anomaly Diabetes mellitus, type II Glaucoma HLD (hyperlipidemia) HTN (hypertension) Mild concentric left ventricular hypertrophy (LVH) Psoriasis Surgical History History of cardiac catheterization History of esophagogastroduodenoscopy (EGD) Family History Other Diabetes Hypertension Social History Smoking Status: Former smoker Second Hand Exposure: No; Hx Alcohol Use: No Hx Substance Use: Yes Last Used Substance Other:: Last used 1 year ago Preferred Language: Danish Communication Ability: Effective Fingerprint Classifier Required: No Beliefs That Will Affect Care: None Current Living Situation: Other Current Living Situation Comment: [facility] Other Information That Helps Us Care for You: No Feels Safe at Home: Yes Safety Concerns: Feels Safe At This Time Assistive Devices: None Review of Systems Review of Systems: All systems reviewed & are unremarkable except as noted in HPI & below Physical Exam Physical Exam: Temp Pulse Resp BP Pulse Ox 37.0 C 67 18 122/82 96 12/14/19 11:00 12/14/19 11:00 12/14/19 11:00 12/14/19 11:00 12/14/19 11:00 Constitutional: WD/WN, vitals as above Respiratory: normal respiratory effort, lungs clear to auscultation Cardiovascular: RRR, no murmur, no edema Gastrointestinal (Abdomen): normal bowel sounds, soft, nontender, no hepatosplenomegaly Skin: Psoriatic plaques noted Neurologic: PERRL, EOMI, accommodation nl, no face palsy, no dysarthria Results & Data ([facility]) Vital Signs (Past 12 Hours) Vital Signs Temp Pulse Pulse Resp BP Pulse Ox 12/14/19 11:00 37.0 C 67 18 122/82 96 12/14/19 08:00 36.5 C 71 18 145/93 H 97 12/14/19 07:00 73 12/14/19 04:00 36.6 C 76 18 134/87 96 Laboratory Results Comprehensive Metabolic Panel 12/14/19 Range/Units 11:40 Glucose 167 H (70-99) mg/dl Intake and Output 12/13/19 12/14/19 12/14/19 22:59 06:59 14:59 Intake Total 500 / 1470 475 / 1470 515.5 / 515.5 Output Total 450 / 3000 450 / 3000 1775 / 1775 Balance 50 / -1530 25 / -1530 -1259.5 / -1259.5 Intake: IV 50.5 / 50.5 Phenergan 12.5 mg In Nss 50 ml 50.5 / 50.5 @ 202 mls/hr IV Q6H PRN Rx#: [id number] Oral 500 / 1470 475 / 1470 465 / 465 Output: Urine 450 / 3000 450 / 3000 1775 / 1775 Other: Weight 91.2 kg Weight Measurement Method Standing Scale
[2019-12-14] MEDS: ACETAMINOPHEN 325 MG TAB PO PRN (17:51)
--- NOTE | 2019-12-14 19:31 | XRay Report ---
LEFT SHOULDER 3 VIEWS CLINICAL HISTORY: Left shoulder pain. FINDINGS: 3 views of the left shoulder are obtained. Correlation is made with chest x-ray dated 020. The skeletal structures are well mineralized. Suspect a mild chronic Hill-Sachs deformity. This is unchanged from the 07/08/2019 chest x-ray. No acute fracture is seen. The glenohumeral and acromiocl avicular joints are maintained. The overlying soft tissues are normal as imaged. The visualized left lung parenchyma appears clear. IMPRESSION: 1. No acute bony abnormality is identified. 2. Suspect a mild chronic Hill-Sachs lesion. Correlate clinically for a history of previous shoulder dislocation. Electronically signed by: Parvez Paris M.D. 12/14/2019 7:30 PM
--- NOTE | 2019-12-14 21:05 | Hospitalist Progress Note ---
Date of Service December 14, 2019 Assessment & Plan (1) Hypertensive emergency: Per admitting service notes Noted to have very high blood pressure at the facility with systolic more than 200 and diastolic more than 140 without any symptoms Blood pressure is reasonably improved with 2 doses of intravenous labetalol He has been taking his medications regularly to control blood pressure and took dose this morning We will need to observe in the hospital for now Denies any symptoms Continue all of his outpatient medications Will have as needed medications to control blood pressure Lisinopril increased to 30 mg p.o. daily Blood pressure is now under control Continue to monitor Right lower quadrant pain, likely musculoskeletal pain CT abdomen and pelvis: No nephrolithiasis, no appendicitis Continue outpatient follow-up White matter changes on CAT scan of the head and MRI of the brain Positive periventricular white matter changes Neurology consulted cervical spine MRI: unrevealing s/p lumbar puncture: CSF studies pending, Serologic markers: pending A fib? Discussed with PA from [facility] service Apparently while an echocardiogram was being performed, atrial fibrillation was suspected based on imaging EKG from the [facility] was sinus rhythm EKG on admission also sinus rhythm, no A. fib trial fibrillation noted during telemetry monitoring May need monitoring analyst Coronary Artery Calcification No active chest pain Already on aspirin, statin, beta-juancho, lisinopril Does report exertional chest pain Patient reports admission to [facility] in [facility] back in November 2018, for evaluation of chest pain, resulting to a cardiac catheterization Records being obtained from [facility] Journal Box Inspector consulted Left Shoulder pain xray ordered Ortho consulted (2) Diabetes mellitus, type II: Continue usual doses of insulin and sliding scale coverage (3) CHF (congestive heart failure): No signs and or symptoms of fluid overload (4) Psoriasis: Continue current meds (5) Glaucoma: No acute eye pain (6) HLD (hyperlipidemia): Continue statin DVT prophylaxis Subcu heparin CODE STATUS Full code Admission and Anticipated Discharge Date Admission Date: December 11, 2019 Subjective ff up for HTN urgency, etc seen resting in bed, comfortable denies active chest pain, SOB s/p Lumbar puncture, nausea improving denies back pain reports shoulder pain, worse with movement no other symptoms Review of Systems Review of Systems: All systems reviewed & are unremarkable except as noted in Subjective Physical Exam Physical Exam: General- oriented x 3, not in distress, speaks in sentences with no effort or accessory muscle use Eyes- anicteric Neck- no JVD Lungs- clear breath sounds bilaterally, no rales/wheezes Heart- normal rate, regular rhythm; no murmurs Abdomen- normal bowel sounds, nondistended, soft, nontender Extremities- no pretibial edema, no calf tenderness left shoulder" no edema, warmth, (+) moderate tenderness, limited ROM due to pain Neuro- alert, oriented x 3; no gross focal neurologic deficits Skin- warm & dry Results & Data Results & Data ([facility]) Vital Signs (Past 12 Hours) Vital Signs Temp Pulse Pulse Resp BP Pulse Ox 12/14/19 19:00 36.7 C 71 18 118/80 95 12/14/19 15:00 36.6 C 79 85 18 129/85 95 12/14/19 11:00 37.0 C 67 18 122/82 96 Laboratory Results Laboratory Results - last 24 hr 12/13/19 12/14/19 12/14/19 10:05 11:40 20:49 POC Glucose 152 H Fld Lyme DNA (PCR) Pending CSF Albumin Pending CSF IgG Pending CSF IgG Index Pending CSF IgG Synthesis Rate Pending CSF Myelin Basic Protein Pending CSF IgG Oligoclonal Bnd Pending CSF VDRL Pending CSF Lyme IgG (Immblot) Pending CSF Lyme IgG Bands Det Pending CSF Lyme IgM (Immblot) Pending CSF Lyme IgM Bands Det Pending IgG Pending Serum Immunofixation Albumin (BASILIO) Pending Urine Immunofixation SOURAV Screen POSITIVE A Lyme Specimen Source Pending 12/14/19 12/14/19 12/15/19 Unknown Unknown 06:53 POC Glucose Fld Lyme DNA (PCR) Cancelled CSF Albumin CSF IgG CSF IgG Index CSF IgG Synthesis Rate CSF Myelin Basic Protein CSF IgG Oligoclonal Bnd CSF VDRL Cancelled CSF Lyme IgG (Immblot) Cancelled CSF Lyme IgG Bands Det Cancelled CSF Lyme IgM (Immblot) Cancelled CSF Lyme IgM Bands Det Cancelled IgG Serum Immunofixation Pending Albumin (BASILIO) Urine Immunofixation SOURAV Screen Lyme Specimen Source Cancelled 12/15/19 12/15/19 12/15/19 07:27 12:20 16:43 POC Glucose 173 H 146 H 128 H Fld Lyme DNA (PCR) CSF Albumin CSF IgG CSF IgG Index CSF IgG Synthesis Rate CSF Myelin Basic Protein CSF IgG Oligoclonal Bnd CSF VDRL CSF Lyme IgG (Immblot) CSF Lyme IgG Bands Det CSF Lyme IgM (Immblot) CSF Lyme IgM Bands Det IgG Serum Immunofixation Albumin (BASILIO) Urine Immunofixation SOURAV Screen Lyme Specimen Source 12/15/19 12/15/19 17:00 20:36 POC Glucose 118 H Fld Lyme DNA (PCR) CSF Albumin CSF IgG CSF IgG Index CSF IgG Synthesis Rate CSF Myelin Basic Protein CSF IgG Oligoclonal Bnd CSF VDRL CSF Lyme IgG (Immblot) CSF Lyme IgG Bands Det CSF Lyme IgM (Immblot) CSF Lyme IgM Bands Det IgG Serum Immunofixation Albumin (BASILIO) Urine Immunofixation Pending SOURAV Screen Lyme Specimen Source
[2019-12-14] MEDS: LATANOPROST 0.005% OP SOLN 2.5 ML BTL OPB SCH (21:26)
[2019-12-14] MEDS: traMADol HCL 50 MG TABLET PO PRN (22:17)
--- NOTE | 2019-12-15 07:21 | CT Scan Report ---
CT OF THE HEAD WITHOUT CONTRAST CLINICAL HISTORY: Worsening headache. COMPARISON STUDY: Head CT and MRI of the brain December 12, 2019. CT DOSE: 614.27 mGy.cm TECHNIQUE: Helical axial images of the head were obtained without IV contrast. Automated exposure con trol was utilized for the study. A dose lowering technique was utilized adhering to the principles o f ALARA. FINDINGS: No acute intracranial hemorrhage, midline shift or mass effect is present. Brain volume is normal. Ventricular system is normal. Basilar cisterns are patent. White matter hypodense foci are si milar to prior head CT. There are no findings to suggest acute dural sinus thrombosis or acute territ orial infarct. There are several suprasellar locules of gas. These are likely venous in location. The re are no significant calvarial abnormalities. Minimal ethmoid sinus mucosal thickening is noted.. IMPRESSION: 1. No acute intracranial findings. 2. No change in white matter hypodense foci. 3. A few locules of suprasellar gas, likely venous in location. These are likely related to vascular access and of uncertain clinical significance. ACT 112: Negative or not required by law. Electronically signed by: David Banda M.D. 12/15/2019 7:19 AM
[2019-12-15] MEDS: SERTRALINE HCL 50 MG TABLET PO SCH (07:30)
[2019-12-15] MEDS: TRIAMCINOLONE ACET 0.1% OINT 15 GM TUBE TOP SCH ×2 (07:30→21:14)
[2019-12-15] MEDS: carvediloL 12.5 MG TAB PO SCH ×2 (07:30→21:14)
[2019-12-15] MEDS: ATORVASTATIN 10 MG TAB PO SCH (07:30)
[2019-12-15] MEDS: ASPIRIN 81 MG CHEW PO SCH (07:30)
[2019-12-15] MEDS: FUROSEMIDE 80 MG TAB PO SCH (07:30)
[2019-12-15] MEDS: lisinopriL 10 MG TAB PO SCH (07:30)
[2019-12-15] MEDS: INSULIN HUMAN NPH SQ SCH ×2 (08:38→17:33)
[2019-12-15] MEDS: INSULIN ASPART 100 UNITS/ML 3 ML PEN SC SCH ×4 (08:38→21:15)
--- NOTE | 2019-12-15 14:34 | Cardiology Progress Note ---
Date of Service December 15, 2019 Assessment & Plan (1) HTN (hypertension): (2) Severe concentric left ventricular hypertrophy: (3) Abnormal EKG: Patient had presented with symptomatic hypertension systolic blood pressure in excess of 200 mmHg. He was placed on his previous medication regimen with increase in lisinopril from 20 mg to 30 mg. Blood pressure is now ideally controlled. He has an abnormal EKG with ST segment changes and T wave inversions in the inferior and lateral leads compatible with ischemia versus left ventricular hypertrophy. Echocardiogram reveals severe concentric left ventricular hypertrophy, septal and posterior wall thickness of 1.7 cm each. The differential diagnosis for the left ventricular hypertrophy includes longstanding hypertension with hypertension related heart disease, a variant of hypertrophic cardiomyopathy, or an infiltrative process. The patient tells me that he was first diagnosed with both diabetes and hypertension at the age of 17. I think therefore the most likely cause of his abnormal EKG is underlying hypertension. Serum and urine immunofixation studies have been collected, for completeness. The patient had described exertional chest tightness with activity such as walking on the track at the [facility] institution. He had undergone a cardiac catheterization at [facility] in November 2018 per his recollection for findings of abnormal EKG and lower extremity edema, he recalls being told that there were mild irregularity in his heart arteries without obstructive disease. Ongoing statin therapy is recommended, but I think that the exertional chest tightness symptom that he has is likely due to poorly controlled hypertension together with LVH. At present, I think we have made progress with his blood pressure, and I counseled him regarding the importance of adherence both while he is still at [facility] and post discharge. He anticipates upcoming parole, and will move to [place]. He has been seen by neurology due to concerns of possible demyelinating disease, as noted, will take upwards of 10 days to have the results of his cerebrospinal fluid back, outpatient neurology follow-up is recommended. Patient stable for discharge from my standpoint on the following cardiac medications: Aspirin 81 mg daily Atorvastatin 10 mg daily Carvedilol 12.5 mg twice daily Furosemide 80 mg p.o. daily Lisinopril 30 mg daily. Admission and Anticipated Discharge Date Admission Date: December 11, 2019 Subjective Patient seen in cardiology follow-up. He feels well, he had a mild headache post lumbar puncture yesterday, but no chest discomfort or shortness of breath. His blood pressure has been ideally controlled, most recent reading 125/85. Telemetry reveals sinus rhythm in the 70s. He did have a 4 beat ventricular run yesterday at 1300, but no sustained arrhythmias. Ejection fraction was normal on his echocardiogram. Physical Exam Physical Exam: Temp Pulse Resp BP Pulse Ox 36.8 C 76 20 125/85 97 12/15/19 11:47 12/15/19 11:47 12/15/19 11:47 12/15/19 11:47 12/15/19 11:47 Constitutional: WD/WN, vitals as above Respiratory: normal respiratory effort, lungs clear to auscultation Cardiovascular: RRR, no murmur, no edema Gastrointestinal (Abdomen): normal bowel sounds, soft, nontender, no hepatosplenomegaly Skin: Psoriatic plaques noted. Neurologic: PERRL, EOMI, accommodation nl, no face palsy, no dysarthria Results & Data ([facility]) Vital Signs (Past 12 Hours) Vital Signs Temp Pulse Pulse Resp BP Pulse Ox 12/15/19 11:47 36.8 C 76 20 125/85 97 12/15/19 07:50 36.2 C L 74 18 122/87 95
[2019-12-15 14:57] LABS: Anti Nuclear Antibody Screen POSITIVE (NEGATIVE)
--- NOTE | 2019-12-15 15:09 | Discharge Summary ---
Date of Service December 15, 2019 Admission HPI Per Admitting Provider He is a 34-year-old obese male with significant past medical history of hypertension, hyperlipidemia diabetes type 2 on insulin, CHF , glaucoma and psoriasis was noted to have a very high blood pressure at the facility today. He denies any symptoms of chest pain, palpitation or shortness of breath. He did not have any headache and no blurred vision and denies any numbness and or tingling involving any of the extremities. Denies any nausea and or vomiting. He was also told that he might have atrial fibrillation which was noted at the facility. He required 2 doses of intravenous labetalol to lower the blood blood pressure at a reasonable level and he mentioned that he took all of his blood pressure medications this morning Was admitted to medical telemetry unit for observation. Discharge Data Allergies Allergy/AdvReac Type Severity Reaction Status Date / Time No Known Drug Allergies Allergy Unknown Unverified 12/11/19 14:20 Consultations 12/11/19 15:41 ED Decision to Admit Stat 12/12/19 13:08 Consult Neurology Routine 12/13/19 10:45 Consult Health Information Management Routine 12/14/19 07:43 Consult Cardiology Routine 12/14/19 19:33 Consult Orthopedic Surgery Routine Ordered Studies 12/12/19 00:02 CT head/brain wo con Urgent 12/12/19 16:21 MR angio head wo con Routine MR angio neck wo/w con Routine MRI Brain [MR brain wo/w con] Routine 12/12/19 21:41 CT abd pelvis wo con Urgent 12/13/19 09:56 MR cervical spine wo/w con Routine 12/14/19 22:40 CT head/brain wo con Urgent Discharge Plan Discharge Items Reason For Visit: HYPERTENSIVE URGENCY Medications and DC Order Prescriptions: No Action latanoprost 0.005 % Drops 1 drp OPB HS RF: 0 carvedilol 12.5 mg Tablet 12.5 mg PO BID RF: 0 atorvastatin 10 mg Tablet 10 mg PO DAILY RF: 0 lisinopril 20 mg Tablet 20 mg PO DAILY RF: 0 furosemide 80 mg Tablet 80 mg PO DAILY RF: 0 triamcinolone acetonide 0.1 % Ointment 1 applic TOPICAL BID RF: 0 sertraline 50 mg Tablet 50 mg PO DAILY RF: 0 Novolin R Flexpen 100 unit/mL (3 mL) Insulin Pen 0 unit SUBCUT UD RF: 0 Novolin N Flexpen 100 unit/mL (3 mL) Insulin Pen 17 unit SUBCUT BID RF: 0 Admission Data Admit Date/Time: 12/11/19 16:15 Attending Provider: Zaki Howard Admit Provider: Raisa Osorio Primary Care Provider: Gem RICKETTS Other Providers: Raisa Osorio ; Laura Watts ; Juan Jose Brar ; Jim Ramesh
[2019-12-15] MEDS: traMADol HCL 50 MG TABLET PO PRN ×2 (15:13→21:13)
--- NOTE | 2019-12-15 15:14 | Orthopedic Consultation ---
Date of Consultation December 15, 2019 Assessment & Plan (1) Rotator cuff tendinitis: The patient is a 34-year-old male with rotator cuff tendinitis and impingement with possible partial rotator cuff tear now with developing adhesive capsulitis. Recommend Lidoderm patch, PT/OT, may weight-bear as tolerated on left upper extremity, MRI of the left shoulder. Thank you for the consultation. (2) Partial tear of rotator cuff: History of Present Illness Reason for Consultation: Left shoulder pain Attending Physician: Zaki Howard MD History of Present Illness Patient is a 34-year-old incarcerated male who presented to [facility] secondary to hypertensive emergency and was admitted for further inpatient observation and treatment. We are seeing the patient for chronic atraumatic left shoulder pain. The patient states that the pain has been in there since he was incarcerated in March, denies any trauma, dislocation or prior surgery to his left shoulder. Denies any numbness and tingling to his left upper extremity. Allergies Allergy/AdvReac Type Severity Reaction Status Date / Time No Known Drug Allergies Allergy Unknown Unverified 12/11/19 14:20 Home Medications Home Medications Medication Instructions Recorded Confirmed Type atorvastatin 10 mg PO DAILY 12/11/19 12/11/19 History carvedilol 12.5 mg PO BID 12/11/19 12/11/19 History furosemide 80 mg PO DAILY 12/11/19 12/11/19 History insulin NPH isoph U-100 human 17 unit SUBCUT BID 12/11/19 12/11/19 History [Novolin N Flexpen] insulin regular human [Novolin R 0 unit SUBCUT UD 12/11/19 12/11/19 History Flexpen] latanoprost 1 drp OPB HS 12/11/19 12/11/19 History lisinopril 20 mg PO DAILY 12/11/19 12/11/19 History sertraline 50 mg PO DAILY 12/11/19 12/11/19 History triamcinolone acetonide 1 applic TOPICAL BID 12/11/19 12/11/19 History Patient History Medical History Abnormal EKG CHF (congestive heart failure) No recent exacerbation Congenital heart anomaly Diabetes mellitus, type II Glaucoma HLD (hyperlipidemia) HTN (hypertension) Mild concentric left ventricular hypertrophy (LVH) Psoriasis Surgical History History of cardiac catheterization History of esophagogastroduodenoscopy (EGD) Family History Other Diabetes Hypertension Social History Smoking Status: Former smoker Second Hand Exposure: No; Hx Alcohol Use: No Hx Substance Use: Yes Last Used Substance Other:: Last used 1 year ago Preferred Language: [place] Zealander Communication Ability: Effective Cloud Infrastructure Architect Required: No Beliefs That Will Affect Care: None Current Living Situation: Other Current Living Situation Comment: [employer] Other Information That Helps Us Care for You: No Feels Safe at Home: Yes Safety Concerns: Feels Safe At This Time Assistive Devices: None Review of Systems Review of Systems: All systems reviewed & are unremarkable except as noted in HPI & below Constitutional: as per Subjective / HPI Physical Exam Physical Exam: Left upper extremity is neurovascular and sensory intact grossly, +2 radial pulse, compartment soft nontender, limited painful range of motion of the shoulder, forward flexion to 160 degrees, abduction to 150 degrees, external rotation 15 degrees. Positive Tripp's test and impingement. Constitutional: WD/WN, vitals as above Results & Data ([facility]) Vital Signs (Past 12 Hours) Vital Signs Temp Pulse Pulse Resp BP Pulse Ox 12/15/19 11:47 36.8 C 76 20 125/85 97 12/15/19 07:50 36.2 C L 74 18 122/87 95 Diagnostic Findings LEFT SHOULDER 3 VIEWS CLINICAL HISTORY: Left shoulder pain. FINDINGS: 3 views of the left shoulder are obtained. Correlation is made with chest x-ray dated 07/08/2019. The skeletal structures are well mineralized. Suspect a mild chronic Hill-Sachs deformity. This is unchanged from the 07/08/2019 chest x-ray. No acute fracture is seen. The glenohumeral and acromioclavicular joints are maintained. The overlying soft tissues are normal as imaged. The visualized left lung parenchyma appears clear. IMPRESSION: 1. No acute bony abnormality is identified. 2. Suspect a mild chronic Hill-Sachs lesion. Correlate clinically for a history of previous shoulder dislocation.
[2019-12-15] MEDS: PROMETHAZINE HCL 12.5 MG in SODIUM CHLORIDE 0.9% 50 ML IV PRN (16:03)
[2019-12-15] MEDS: LIDOCAINE 5% 1 PATCH TD SCH (16:04)
--- NOTE | 2019-12-15 21:04 | Hospitalist Progress Note ---
Date of Service December 15, 2019 Assessment & Plan (1) Hypertensive emergency: Per admitting service notes Noted to have very high blood pressure at the facility with systolic more than 200 and diastolic more than 140 without any symptoms Blood pressure is reasonably improved with 2 doses of intravenous labetalol He has been taking his medications regularly to control blood pressure and took dose this morning Lisinopril increased to 30 mg p.o. daily Blood pressure is now under control Right lower quadrant pain, likely musculoskeletal pain CT abdomen and pelvis: No nephrolithiasis, no appendicitis Continue outpatient follow-up White matter changes on CAT scan of the head and MRI of the brain Positive periventricular white matter changes Neurology consulted cervical spine MRI: unrevealing s/p lumbar puncture: CSF studies pending, Serologic markers: pending A fib? Discussed with PA from [facility] service Apparently while an echocardiogram was being performed, atrial fibrillation was suspected based on imaging EKG from the [facility] was sinus rhythm EKG on admission also sinus rhythm, no A. fib trial fibrillation noted during telemetry monitoring May need cardiac surgeon Coronary Artery Calcification No active chest pain Already on aspirin, statin, beta-juancho, lisinopril Does report exertional chest pain Patient reports admission to [facility] in [facility] back in November 2018, for evaluation of chest pain, resulting to a cardiac catheterization Records being obtained from [facility] repeat echo: LVH Service Tester consulted--> chest pain likely from LVH continue Lisinopril 30mg, ASA, Carvedilol, Statin Left Shoulder pain, Partial Rotator Cuff Tear xray ordered: no fracture Ortho consulted: MRI ordered (2) Diabetes mellitus, type II: Continue usual doses of insulin and sliding scale coverage (3) CHF (congestive heart failure): No signs and or symptoms of fluid overload (4) Psoriasis: Continue current meds (5) Glaucoma: No acute eye pain (6) HLD (hyperlipidemia): Continue statin DVT prophylaxis Subcu heparin CODE STATUS Full code Disposition anticipate d/c back to [facility] tomorrow Admission and Anticipated Discharge Date Admission Date: December 11, 2019 Subjective ff up for HTN Urgency etc seen resting in bed, comfortable no chest pain, dyspnea, headache still has moderate shoulder pain denies other symptoms Review of Systems Review of Systems: All systems reviewed & are unremarkable except as noted in Subjective Physical Exam Physical Exam: General- oriented x 3, not in distress, speaks in sentences with no effort or accessory muscle use Eyes- anicteric Neck- no JVD Lungs- clear breath sounds bilaterally no rales, wheezing Heart- normal rate, regular rhythm; no murmurs Abdomen- normal bowel sounds, nondistended, soft, nontender Extremities- no pretibial edema, no calf tenderness left shoulder: no edema, warmth mild tenderness Neuro- alert, oriented x 3; no gross focal neurologic deficits Skin- warm & dry Results & Data Results & Data ([facility]) Vital Signs (Past 12 Hours) Vital Signs Temp Pulse Pulse Resp BP BP Pulse Ox 12/15/19 19:48 37.0 C 77 20 127/83 98 12/15/19 16:03 36.4 C L 81 18 129/94 99 12/15/19 11:47 36.8 C 76 20 125/85 97 Laboratory Results Laboratory Results - last 24 hr 12/13/19 12/14/19 12/14/19 10:05 11:40 Unknown POC Glucose Fld Lyme DNA (PCR) Pending Cancelled CSF Albumin Pending CSF IgG Pending CSF IgG Index Pending CSF IgG Synthesis Rate Pending CSF Myelin Basic Protein Pending CSF IgG Oligoclonal Bnd Pending CSF VDRL Pending CSF Lyme IgG (Immblot) Pending Cancelled CSF Lyme IgG Bands Det Pending Cancelled CSF Lyme IgM (Immblot) Pending Cancelled CSF Lyme IgM Bands Det Pending Cancelled IgG Pending Serum Immunofixation Albumin (BASILIO) Pending Urine Immunofixation SOURAV Screen POSITIVE A Lyme Specimen Source Pending Cancelled 12/14/19 12/15/19 12/15/19 Unknown 06:53 07:27 POC Glucose 173 H Fld Lyme DNA (PCR) CSF Albumin CSF IgG CSF IgG Index CSF IgG Synthesis Rate CSF Myelin Basic Protein CSF IgG Oligoclonal Bnd CSF VDRL Cancelled CSF Lyme IgG (Immblot) CSF Lyme IgG Bands Det CSF Lyme IgM (Immblot) CSF Lyme IgM Bands Det IgG Serum Immunofixation Pending Albumin (BASILIO) Urine Immunofixation SOURAV Screen Lyme Specimen Source 12/15/19 12/15/19 12/15/19 12:20 16:43 17:00 POC Glucose 146 H 128 H Fld Lyme DNA (PCR) CSF Albumin CSF IgG CSF IgG Index CSF IgG Synthesis Rate CSF Myelin Basic Protein CSF IgG Oligoclonal Bnd CSF VDRL CSF Lyme IgG (Immblot) CSF Lyme IgG Bands Det CSF Lyme IgM (Immblot) CSF Lyme IgM Bands Det IgG Serum Immunofixation Albumin (BASILIO) Urine Immunofixation Pending SOURAV Screen Lyme Specimen Source 12/15/19 20:36 POC Glucose 118 H Fld Lyme DNA (PCR) CSF Albumin CSF IgG CSF IgG Index CSF IgG Synthesis Rate CSF Myelin Basic Protein CSF IgG Oligoclonal Bnd CSF VDRL CSF Lyme IgG (Immblot) CSF Lyme IgG Bands Det CSF Lyme IgM (Immblot) CSF Lyme IgM Bands Det IgG Serum Immunofixation Albumin (BASILIO) Urine Immunofixation SOURAV Screen Lyme Specimen Source
[2019-12-15] MEDS: LATANOPROST 0.005% OP SOLN 2.5 ML BTL OPB SCH (21:14)
[2019-12-16 01:56] LABS: Angiotensin Converting Enzyme < 8 U/L (9-67); Anti Cardiolipin Ab IgG <14 GPL; Anti Cardiolipin Ab IgM <12 MPL; Anti-Cardiolipin Ab IgA <11 APL
[2019-12-16] MEDS: traMADol HCL 50 MG TABLET PO PRN ×3 (02:53→15:52)
--- NOTE | 2019-12-16 09:06 | Magnetic Resonance Report ---
MRI OF THE LEFT SHOULDER CLINICAL HISTORY: Left shoulder pain. COMPARISON STUDY: Radiographs of the left shoulder dated 12/14/2019. TECHNIQUE: MRI of the left shoulder was performed utilizing various T1 and T2 weighted sequences in t he axial, sagittal, coronal planes. IV contrast was not administered for this examination. The examin ation is degraded by motion artifact. FINDINGS: Rotator cuff: There is mild tendinopathy of the supraspinatus tendon with no significant tearing iden tified. There is mild partial thickness undersurface tearing seen involving the posterior fibers of i nfraspinatus at the leading edge. This best seen on sagittal image #17 and coronal image #21. No full -thickness tear is identified. The teres minor and subscapularis tendons are intact. There is no suba cromial or subdeltoid bursal fluid. Mild productive change and edema is noted at the acromioclavicula r joint. Biceps tendon: The long head of the biceps tendon is normal in signal intensity and located within th e bicipital groove. The anchor is maintained. Labrum: There is evidence of a soft tissue Bankart injury with tearing along the anterior/inferior as pect of the labrum. No osteochondral defect is seen. There is also fraying of the posterior labrum. Shoulder joint: There is trace joint effusion. The articular cartilage over the glenoid is well maint ained. A Hill-Sachs lesion is seen in the humeral head with mild marrow edema. Musculature and soft tissues: The musculature of the shoulder is normal in bulk and signal intensity. No atrophy is seen. IMPRESSION: 1. There is an age indeterminant Hill-Sachs lesion with mild marrow edema. 2. There is evidence of a soft tissue Bankart injury as above. 3. Mild partial thickness undersurface tearing is seen at the posterior leading edge of infraspinatus . 4. The rotator cuff is otherwise intact. ACT 112: Negative or not required by law. Electronically signed by: Parvez Paris M.D. 12/16/2019 9:04 AM
[2019-12-16] MEDS: SERTRALINE HCL 50 MG TABLET PO SCH (09:17)
[2019-12-16] MEDS: ATORVASTATIN 10 MG TAB PO SCH (09:17)
[2019-12-16] MEDS: FUROSEMIDE 80 MG TAB PO SCH (09:17)
[2019-12-16] MEDS: carvediloL 12.5 MG TAB PO SCH (09:18)
[2019-12-16] MEDS: lisinopriL 10 MG TAB PO SCH (09:18)
[2019-12-16] MEDS: TRIAMCINOLONE ACET 0.1% OINT 15 GM TUBE TOP SCH (09:19)
[2019-12-16] MEDS: INSULIN HUMAN NPH SQ SCH ×2 (09:19→17:13)
[2019-12-16] MEDS: INSULIN ASPART 100 UNITS/ML 3 ML PEN SC SCH ×3 (09:20→17:14)
[2019-12-16] MEDS: LIDOCAINE 5% 1 PATCH TD SCH (09:22)
[2019-12-16] MEDS: ASPIRIN 81 MG CHEW PO SCH (09:26)
--- NOTE | 2019-12-16 15:11 | Orthopedic Progress Note ---
Date of Service December 16, 2019 Assessment & Plan (1) Bankart lesion of left shoulder: (2) Partial tear of rotator cuff: I reviewed the results of the MRI with the patient in detail today. MRI demonstrated partial undersurface tearing of the rotator cuff, soft tissue Bankart lesion and age-indeterminate Hill-Sachs. Patient does not recall any shoulder dislocation or subluxation or injury. Nonoperative treatment at this time including weight-bear as tolerates, PT/OT, anti-inflammatories as needed, corticosteroid injection if symptoms persist or worsen. Follow-up as an outpatient with shoulder specialist, patient prefers to follow-up in [place]. Admission and Anticipated Discharge Date Admission Date: December 11, 2019 Subjective Patient seen sitting in bed, guards at bedside, reports feeling more discomfort when Lidoderm patch removed. No acute issues. Comfortable. Review of Systems Review of Systems: All systems reviewed & are unremarkable except as noted in HPI & below Constitutional: as per Subjective / HPI Physical Exam Physical Exam: Left upper extremity is neurovascular sensory intact, +2 radial pulse, compartment soft nontender, limited painful active/range of motion Constitutional: WD/WN, vitals as above Results & Data ([facility]) Vital Signs (Past 12 Hours) Vital Signs Temp Pulse Pulse Resp BP BP Pulse Ox 12/16/19 11:45 36.8 C 65 18 123/85 97 12/16/19 07:10 37.5 C 77 18 137/94 99 12/16/19 04:36 36.8 C 74 18 142/87 H 95 Diagnostic Findings MRI OF THE LEFT SHOULDER CLINICAL HISTORY: Left shoulder pain. COMPARISON STUDY: Radiographs of the left shoulder dated 12/14/2019. TECHNIQUE: MRI of the left shoulder was performed utilizing various T1 and T2 weighted sequences in the axial, sagittal, coronal planes. IV contrast was not administered for this examination. The examination is degraded by motion artifact. FINDINGS: Rotator cuff: There is mild tendinopathy of the supraspinatus tendon with no significant tearing identified. There is mild partial thickness undersurface tearing seen involving the posterior fibers of infraspinatus at the leading edge. This best seen on sagittal image #17 and coronal image #21. No full- thickness tear is identified. The teres minor and subscapularis tendons are intact. There is no subacromial or subdeltoid bursal fluid. Mild productive change and edema is noted at the acromioclavicular joint. Biceps tendon: The long head of the biceps tendon is normal in signal intensity and located within the bicipital groove. The anchor is maintained. Labrum: There is evidence of a soft tissue Bankart injury with tearing along the anterior/inferior aspect of the labrum. No osteochondral defect is seen. There is also fraying of the posterior labrum. Shoulder joint: There is trace joint effusion. The articular cartilage over the glenoid is well maintained. A Hill-Sachs lesion is seen in the humeral head with mild marrow edema. Musculature and soft tissues: The musculature of the shoulder is normal in bulk and signal intensity. No atrophy is seen. IMPRESSION: 1. There is an age indeterminant Hill-Sachs lesion with mild marrow edema. 2. There is evidence of a soft tissue Bankart injury as above. 3. Mild partial thickness undersurface tearing is seen at the posterior leading edge of infraspinatus. 4. The rotator cuff is otherwise intact.
[2019-12-16] MEDS: PROMETHAZINE HCL 12.5 MG in SODIUM CHLORIDE 0.9% 50 ML IV PRN (15:53)
--- NOTE | 2019-12-16 16:49 | Hospitalist Progress Note ---
Date of Service December 16, 2019 Assessment & Plan (1) Hypertensive emergency: Hypertensive emergency Per admitting service notes: Noted to have very high blood pressure at the facility with systolic more than 200 and diastolic more than 140 without any symptoms Blood pressure is reasonably improved with 2 doses of intravenous labetalol He has been taking his medications regularly to control blood pressure and took dose this morning Lisinopril increased to 30 mg p.o. daily Blood pressure noted to be controlled since hospital day #2 Discharge plan: Increase lisinopril to 30 mg p.o. daily Continue carvedilol Is imperative for patient to have good blood pressure control in light of chest pain related to LVH White matter changes on CAT scan of the head and MRI of the brain Possible underlying demyelinating disease, microvascular disease CT head: 1. No evidence of acute hemorrhage 2. Progressive unexplained periventricular white matter hypodensities. This could indicate demyelinating disease, or age accelerated ischemic disease. Clinical correlation is recommended. Further workup is advocated given the young age of this patient. Brain MRI: 1. No acute intracranial abnormality or abnormal enhancement. 2. Moderate periventricular predominant T2/FLAIR hyperintensities within the bilateral cerebral hemispheres are noted in addition to several T2 hyperintense foci noted throughout the corpus callosum. These findings are most suspicious for a demyelinating process such as multiple sclerosis. Chronic microvascular ischemic disease considered less likely. cervical spine MRI: unrevealing Neurologist consulted Dr. Laura Watts of [facility] s/p lumbar puncture: CSF studies pending, Serologic markers: pending--> follow- up with Dr. Laura Watts in 1 to 2 weeks to discuss results Aspirin 81 mg p.o. daily recommended Headache Likely secondary to spinal tap Patient encouraged to sit up more, hydrate well, drink caffeinated beverages As needed analgesics With no improvement or worsening in 2 days, will need to evaluate for possible blood patch Atrial fibrillation episode? Discussed with PA from [facility] service Apparently while an echocardiogram was being performed, atrial fibrillation was suspected based on imaging EKG from the [facility] was sinus rhythm EKG on admission also sinus rhythm, no A. fib trial fibrillation noted during telemetry monitoring Recommend outpatient court recording monitor placement evaluate for paroxysmal atrial fibrillation Chest pain likely secondary to severe left ventricular hypertrophy Possible etiologies of LVH include hypertension, variant of hypertrophic cardiomyopathy, or infiltrative process No active chest pain while admitted Already on aspirin, statin, beta-juancho, lisinopril Does report chest pain with exertion Patient reports admission to [facility] back in November 2018, for evaluation of chest pain, resulting to a cardiac catheterization Records being obtained from [facility] repeat echo: Severe LVH, left ventricular systolic function is normal, ejection fraction 55%, grade 1 diastolic dysfunction, no significant valvular disease Cinema Or Theatre Manager consulted Dr. Juan Jose Brar of [facility]--> chest pain likely from LVH Serum and urine immunofixation studies collected, results: Pending, follow-up Recommend to continue Lisinopril 30mg, ASA 81 mg p.o. daily, Carvedilol 12.5 mg twice daily, atorvastatin 10 mg daily, furosemide 80 mg p.o. daily Left Shoulder pain, Partial Rotator Cuff Tear [facility] consulted, Dr. Gwyn Izaguirre Recommend nonoperative treatment including weightbearing as tolerated, PT OT, anti-inflammatories as needed, corticosteroid injection if symptoms persist or worsen Avoid NSAIDs in light of underlying cardiac issues Follow-up with shoulder specialist as an outpatient Right lower quadrant pain, likely musculoskeletal pain CT abdomen and pelvis: No nephrolithiasis, no appendicitis Continue outpatient follow-up [facility]position [facility] Follow-up with neurologist Dr. Laura Watts in 1 to 2 weeks Will need follow-up with primary care physician, colorman, orthopedic surgeon Strongly emphasized with patient regarding medication adherence, and close follow-up with above physicians to ensure proper continuity of care Plan of care discussed with patient in detail and at length All questions were answered He is understanding, agreeable, comfortable with the plan of care (2) Diabetes mellitus, type II: Continue usual doses of insulin and sliding scale coverage (3) CHF (congestive heart failure): No signs and or symptoms of fluid overload (4) Psoriasis: Continue current meds (5) Glaucoma: No acute eye pain (6) HLD (hyperlipidemia): Continue statin DVT prophylaxis Subcu heparin CODE STATUS Full code Disposition anticipate d/c back to [facility] tomorrow Admission and Anticipated Discharge Date Admission Date: December 11, 2019 Subjective Follow-up for hypertensive urgency, etc. Seen sitting up in bed, comfortable, not in distress Reports moderate posterior headache, with mild nausea No changes in vision, focal neurologic deficits Denies fevers or chills No recurrence of chest pain, No shortness of breath, palpitations, dizziness Still has moderate left shoulder pain Denies any other symptoms Agreeable for discharge today Review of Systems Review of Systems: All systems reviewed & are unremarkable except as noted in Subjective Physical Exam Physical Exam: General- oriented x 3, not in distress, speaks in sentences with no effort or accessory muscle use Eyes- anicteric Neck- no JVD Lungs- clear breath sounds bilaterally, no rales/wheezes Heart- normal rate, regular rhythm; no murmurs Abdomen- normal bowel sounds, nondistended, soft, nontender Back- no leakage noted from the spinal tap site Extremities- no pretibial edema, no calf tenderness Left shoulder-better range of motion No edema/warmth/tenderness Neuro- alert, oriented x 3; no gross focal neurologic deficits Skin- warm & dry Results & Data Results & Data ([facility]) Vital Signs (Past 12 Hours) Vital Signs Temp Pulse Pulse Resp BP BP Pulse Ox 12/16/19 15:46 36.4 C L 71 18 130/90 98 12/16/19 11:45 36.8 C 65 18 123/85 97 12/16/19 07:10 37.5 C 77 18 137/94 99 12/16/19 04:36 36.8 C 74 18 142/87 H 95 Laboratory Results Laboratory Results - last 24 hr 12/13/19 12/13/19 12/15/19 10:05 10:05 16:43 POC Glucose 128 H Angiotensin Convert Enz < 8 L Urine Immunofixation SOURAV Screen POSITIVE A SOURAV Titer 1:320 H SOURAV Pattern A Anti-Cardiolipin IgG Ab <14 Anti-Cardiolipin IgA Ab <11 Anti-Cardiolipin IgM Ab <12 12/15/19 12/15/19 12/16/19 17:00 20:36 07:28 POC Glucose 118 H 167 H Angiotensin Convert Enz Urine Immunofixation Pending SOURAV Screen SOURAV Titer SOURAV Pattern Anti-Cardiolipin IgG Ab Anti-Cardiolipin IgA Ab Anti-Cardiolipin IgM Ab 12/16/19 11:35 POC Glucose 173 H Angiotensin Convert Enz Urine Immunofixation SOURAV Screen SOURAV Titer SUORAV Pattern Anti-Cardiolipin IgG Ab Anti-Cardiolipin IgA Ab Anti-Cardiolipin IgM Ab
--- NOTE | 2019-12-16 17:06 | Discharge Summary ---
Date of Service December 16, 2019 Admission HPI Per Admitting Provider He is a 34-year-old obese male with significant past medical history of hypertension, hyperlipidemia diabetes type 2 on insulin, CHF , glaucoma and psoriasis was noted to have a very high blood pressure at the facility today. He denies any symptoms of chest pain, palpitation or shortness of breath. He did not have any headache and no blurred vision and denies any numbness and or tingling involving any of the extremities. Denies any nausea and or vomiting. He was also told that he might have atrial fibrillation which was noted at the facility. He required 2 doses of intravenous labetalol to lower the blood blood pressure at a reasonable level and he mentioned that he took all of his blood pressure medications this morning Was admitted to medical telemetry unit for observation. Admission Exam Per Admitting Provider Physical Exam: Lying in bed comfortably Constitutional: well developed, well nourished and + obese; no acute distress and not ill appearing Eyes: PERRL, conjunctivae normal, anicteric sclerae ENMT: external ear and nose normal, oropharynx normal Neck: trachea midline, no thyromegaly Respiratory: normal respiratory effort; no respiratory distress Auscultation: lungs clear to auscultation bilaterally Cardiovascular: Rate/Rhythm: regular rate and regular rhythm Heart Sounds: no murmur Extremities: no edema Gastrointestinal (Abdomen): Inspection/Auscultation: abdomen normal to inspection and normal bowel sounds; abdomen not distended Percussion/Palpation: abdomen soft; abdomen nontender Musculoskeletal: No acute arthritis involving any joint Skin: Has generalized psoriasis Neurologic: moves all extremities; no focal motor deficits Psychiatric: A+Ox3, euthymic affect Lymphatic: no cervical or axillary lymphadenopathy Principal Diagnosis Hypertensive urgency Discharge Exam General- oriented x 3, not in distress, speaks in sentences with no effort or accessory muscle use Eyes- anicteric Neck- no JVD Lungs- clear breath sounds bilaterally, no rales/wheezes Heart- normal rate, regular rhythm; no murmurs Abdomen- normal bowel sounds, nondistended, soft, nontender Back- no leakage noted from the spinal tap site Extremities- no pretibial edema, no calf tenderness Left shoulder-better range of motion No edema/warmth/tenderness Neuro- alert, oriented x 3; no gross focal neurologic deficits Skin- warm & dry Discharge Data Allergies Allergy/AdvReac Type Severity Reaction Status Date / Time No Known Drug Allergies Allergy Unknown Unverified 12/11/19 14:20 Consultations 12/11/19 15:41 ED Decision to Admit Stat 12/12/19 13:08 Consult Neurology Routine 12/13/19 10:45 Consult Health Information Management Routine 12/14/19 07:43 Consult Cardiology Routine 12/14/19 19:33 Consult Orthopedic Surgery Routine Ordered Studies 12/12/19 00:02 CT head/brain wo con Urgent No intra or extra-axial mass lesions are visualized. There is no CT evidence of acute cortical infarction. There is no evidence of midline shift. There is no acute hemorrhage. No calvarial fractures are visualized. There is a stable white matter hypodensity adjacent to the anterior horn of left lateral ventricle. There are progressive periventricular white matter hypodensities including new lesions adjacent to the anterior horn right lateral ventricle and in the region the right external capsule There is no evidence of pathologic ventricular dilatation. There is no evidence of acute sinusitis IMPRESSION: 1. No evidence of acute hemorrhage 2. Progressive unexplained periventricular white matter hypodensities. This could indicate demyelinating disease, or age accelerated ischemic disease. Clinical correlation is recommended. Further workup is advocated given the young age of this patient. 12/12/19 16:21 MR angio head wo con Routine FINDINGS: The imaged bilateral internal carotid arteries are widely patent. The middle and anterior cerebral arteries are also widely patent. Diminutive left A1 segment, likely developmental. The imaged vertebral arteries are also patent. The basilar and posterior cerebral arteries are patent. origin of the left posterior cerebral artery. No aneurysm, dissection, high-grade stenosis or proximal branch occlusion. IMPRESSION: Unremarkable MRA of the head. MR angio neck wo/w con Routine FINDINGS: The landfill grader localizer images demonstrate no gross abnormality. Study is motion degraded. The bilateral common and internal carotid arteries are widely patent and unremarkable. Codominant and patent vertebral arteries. No aneurysm, dissection, high-grade stenosis or proximal branch occlusion. IMPRESSION: Unremarkable MRA of the neck. MRI Brain [MR brain wo/w con] Routine No acute intracranial hemorrhage, midline shift, abnormal extra-axial collection, hydrocephalus or intracranial mass. The cerebral venous sinuses and major arterial flow voids at the level the skull base appear patent. Trace left mastoid effusion. Mild polypoid mucosal thickening of the right maxillary sinus with minimal mucosal thickening of the ethmoid air cells. The skull, orbits and soft tissues are unremarkable. There is no abnormal intra-axial or extra-axial enhancement. Moderate periventricular predominate T2/FLAIR hyperintensities are noted within the white matter of the bilateral cerebral hemispheres, predominantly within the periventricular distributions and also within the subcortical regions. Several foci are also noted involving the corpus callosum. No infratentorial lesions identified. The imaged cervical spinal cord appears normal. IMPRESSION: 1. No acute intracranial abnormality or abnormal enhancement. 2. Moderate periventricular predominant T2/FLAIR hyperintensities within the bilateral cerebral hemispheres are noted in addition to several T2 hyperintense foci noted throughout the corpus callosum. These findings are most suspicious for a demyelinating process such as multiple sclerosis. Chronic microvascular is chemic disease considered less likely. 12/12/19 21:41 CT abd pelvis wo con Urgent FINDINGS: Lung bases: The heart is normal in size and without pericardial effusion. There is age advanced atherosclerotic calcification of the coronary arteries. A tiny hiatal hernia is noted. The lung bases are clear. Liver: The unenhanced liver is normal in size, contour, and attenuation. There is no intrahepatic biliary ductal dilatation. Gallbladder: Unremarkable. Spleen: Normal in size and attenuation. Pancreas: Unremarkable. Adrenal glands: Unremarkable. Kidneys: The unenhanced kidneys are normal in size and without hydronephrosis. There are no renal calculi identified. There is no evidence of contour deforming renal mass lesion. Abdominal vasculature: The abdominal aorta is normal in course and caliber. Bowel: There is no bowel obstruction. Mild fecal retention is seen throughout the colon. The appendix is well-visualized and normal. Peritoneum: There is no intraperitoneal free air or abdominal ascites. Lymphadenopathy: None. Pelvic viscera: The bladder is mildly distended but otherwise normal in appearance. The prostate and seminal vesicles are normal as visualized. There are small bilateral fat-containing inguinal hernias. Skeletal structures: No lytic or blastic lesions are seen. IMPRESSION: 1. There are no acute infectious or inflammatory findings in the abdomen or pelvis. 2. There is age advanced coronary artery calcification. Consider nonemergent cardiology follow-up. 12/13/19 09:56 MR cervical spine wo/w con Routine FINDINGS: Alignment of the cervical spine is anatomic. Vertebral body heights are maintained. Disc spaces are preserved. Paravertebral soft tissues are unremarkable. Cervical cord signal is suboptimally assessed on this exam given motion artifact. However, no cord signal abnormality is identified on this exam. There is no abnormal enhancement within the cervical canal. C2-C3: The central canal and neural foramen are patent. C3-C4: The central canal and neural foramen are patent. C4-C5: The central canal and neural foramen are patent. C5-C6: The central canal and neural foramen are patent. C6-C7: Central canal and neural foramen are patent. C7-T1: The central canal and neural foramen are patent. IMPRESSION: 1. No cervical cord signal abnormality identified although exam mildly compromised by motion artifact. 2. Unremarkable MRI of the cervical spine. Patent central canal and neural foramen. No abnormal enhancement within the cervical canal. 12/14/19 22:40 CT head/brain wo con Urgent 12/15/19 15:14 MRI Shoulder [MR shoulder LT wo con] Routine Rotator cuff: There is mild tendinopathy of the supraspinatus tendon with no significant tearing identified. There is mild partial thickness undersurface tearing seen involving the posterior fibers of infraspinatus at the leading edge. This best seen on sagittal image #17 and coronal image #21. No full- thickness tear is identified. The teres minor and subscapularis tendons are intact. There is no subacromial or subdeltoid bursal fluid. Mild productive change and edema is noted at the acromioclavicular joint. Biceps tendon: The long head of the biceps tendon is normal in signal intensity and located within the bicipital groove. The anchor is maintained. Labrum: There is evidence of a soft tissue Bankart injury with tearing along the anterior/inferior aspect of the labrum. No osteochondral defect is seen. There is also fraying of the posterior labrum. Shoulder joint: There is trace joint effusion. The articular cartilage over the glenoid is well maintained. A Hill-Sachs lesion is seen in the humeral head with mild marrow edema. Musculature and soft tissues: The musculature of the shoulder is normal in bulk and signal intensity. No atrophy is seen. IMPRESSION: 1. There is an age indeterminant Hill-Sachs lesion with mild marrow edema. 2. There is evidence of a soft tissue Bankart injury as above. 3. Mild partial thickness undersurface tearing is seen at the posterior leading edge of infraspinatus. 4. The rotator cuff is otherwise intact. Hospital Course (1) Hypertensive emergency: Hypertensive emergency Per admitting service notes: Noted to have very high blood pressure at the facility with systolic more than 200 and diastolic more than 140 without any symptoms Blood pressure is reasonably improved with 2 doses of intravenous labetalol He has been taking his medications regularly to control blood pressure and took dose this morning Lisinopril increased to 30 mg p.o. daily Blood pressure noted to be controlled since hospital day #2 Discharge plan: Increase lisinopril to 30 mg p.o. daily Continue carvedilol Is imperative for patient to have good blood pressure control in light of chest pain related to LVH White matter changes on CAT scan of the head and MRI of the brain Possible underlying demyelinating disease, microvascular disease CT head: 1. No evidence of acute hemorrhage 2. Progressive unexplained periventricular white matter hypodensities. This could indicate demyelinating disease, or age accelerated ischemic disease. Clinical correlation is recommended. Further workup is advocated given the young age of this patient. Brain MRI: 1. No acute intracranial abnormality or abnormal enhancement. 2. Moderate periventricular predominant T2/FLAIR hyperintensities within the bilateral cerebral hemispheres are noted in addition to several T2 hyperintense foci noted throughout the corpus callosum. These findings are most suspicious for a demyelinating process such as multiple sclerosis. Chronic microvascular ischemic disease considered less likely. Cervical spine MRI: unrevealing Neurologist consulted Dr. Laura Watts of [facility] s/p lumbar puncture: CSF studies pending, Serologic markers: pending--> follow- up with Dr. Laura Watts in 1 to 2 weeks to discuss results , further evaluation and management Aspirin 81 mg p.o. daily recommended Headache Likely secondary to spinal tap Patient encouraged to sit up more, hydrate well, drink caffeinated beverages As needed analgesics With no improvement or worsening in 2 days, will need to evaluate for possible blood patch Atrial fibrillation episode? Discussed with PA from [facility] service Apparently while an echocardiogram was being performed, atrial fibrillation was suspected based on imaging EKG from the [facility] was sinus rhythm EKG on admission also sinus rhythm, no A. fib trial fibrillation noted during t elemetry monitoring Recommend outpatient monitor worker placement evaluate for paroxysmal atrial fibrillation Chest pain likely secondary to severe left ventricular hypertrophy Possible etiologies of LVH include hypertension, variant of hypertrophic cardiomyopathy, or infiltrative process No active chest pain while admitted Already on aspirin, statin, beta-juancho, lisinopril Does report chest pain with exertion Patient reports admission to [facility] in [facility] back in November 2018, for evaluation of chest pain, resulting to a cardiac catheterization Records being obtained from [facility] repeat echo: Severe LVH, left ventricular systolic function is normal, ejection fraction 55%, grade 1 diastolic dysfunction, no significant valvular disease Wildlife Technician consulted Dr. Juan Jose Brar of [facility]--> chest pain likely from LVH Serum and urine immunofixation studies collected, results: Pending, follow-up Recommend to continue Lisinopril 30mg, ASA 81 mg p.o. daily, Carvedilol 12.5 mg twice daily, atorvastatin 10 mg daily, furosemide 80 mg p.o. daily follow up with Wildlife Technician closely Left Shoulder pain, Partial Rotator Cuff Tear [facility], Dr. Gwyn Izaguirre Recommend nonoperative treatment including weightbearing as tolerated, PT OT, anti-inflammatories as needed, corticosteroid injection if symptoms persist or worsen Avoid NSAIDs in light of underlying cardiac issues Follow-up with shoulder specialist as an outpatient Right lower quadrant pain, likely musculoskeletal pain CT abdomen and pelvis: No nephrolithiasis, no appendicitis Continue outpatient follow-up (2) Diabetes mellitus, type II: Resume usual regimen Patient requesting to continue insulin sliding scale while at the correctional facility Patient needs to have good blood glucose control, and other vascular risk factor control (3) CHF (congestive heart failure): No signs and or symptoms of fluid overload (4) Psoriasis: Continue current meds (5) Glaucoma: No acute eye pain (6) HLD (hyperlipidemia): Continue statin DVT prophylaxis Subcu heparin given CODE STATUS Full code Disposition Discharge back to correctional facility Follow-up with neurologist Dr. Laura Watts in 1 to 2 weeks Will need close follow-up with primary care physician, tungsten refiner, orthopedic surgeon Strongly emphasized with patient regarding medication adherence, and close follow-up with primary care physician, neurologist, tungsten refiner, tabetic surgeon to ensure proper continuity of care Plan of care discussed with patient in detail and at length All questions were answered He is understanding, agreeable, comfortable with the plan of care Total Time Total Time Spent Total Time Spent (In Minutes): 60 minutes Discharge Plan Discharge Items Patient Disposition: [facility] Reason For Visit: HYPERTENSIVE URGENCY Discharge Diagnosis: Hypertensive urgency White matter changes on brain imaging, rule out demyelinating disease Left shoulder pain, partial rotator cuff tear Activity: As commented below Activity Comment: Resume activity gradually as tolerated Weightbearing Comment: Weightbearing as tolerated left upper arm Non-emergency contact: Primary Care Provider, Surgeon, Wildlife Technician and Neurologist Call non-emergency contact if: you have any medication questions, your symptoms worsen, your pain is not controlled, your pain is worsening, your pain is unusual for you, your pain is concerning for you and you have a fever Follow-up/Referrals: Juan Jose Brar DO [Wildlife Technician] - Laura Watts MD [Physician] - [facility] [Primary Care Provider] - Gwyn Izaguirre DO [Physician] - Diet: Carb Consistent or DM2 and Heart Healthy Addtl Attending Provider Instructions: Monitor headache, return to the ER if with no improvement or worsening in 2 days. Please refer to accompanying hospital discharge summary for further details. Pending Studies at Discharge: Yes Studies:: Results of: CSF analysis Serum and urine immunofixation studies Patient needs monitor worker placement. Stand-Alone Forms: My [facility] Skilled Items Patient informed of condition?: Yes Discharge Level of Care: Other Communicable Disease: No Discharge Prognosis: Stable Lines: None Urinary Catheter: No Medications and DC Order Prescriptions: New tramadol 50 mg Tablet 50 mg PO Q4H PRN (Reason: pain) Qty: 10 RF: 0 lisinopril 10 mg Tablet 30 mg PO DAILY Qty: 90 RF: 0 aspirin 81 mg Tablet,Chewable 81 mg PO DAILY Qty: 30 RF: 0 Continued latanoprost 0.005 % Drops 1 drp OPB HS RF: 0 carvedilol 12.5 mg Tablet 12.5 mg PO BID RF: 0 atorvastatin 10 mg Tablet 10 mg PO DAILY RF: 0 furosemide 80 mg Tablet 80 mg PO DAILY RF: 0 triamcinolone acetonide 0.1 % Ointment 1 applic TOPICAL BID RF: 0 sertraline 50 mg Tablet 50 mg PO DAILY RF: 0 Novolin R Flexpen 100 unit/mL (3 mL) Insulin Pen 0 unit SUBCUT UD RF: 0 Novolin N Flexpen 100 unit/mL (3 mL) Insulin Pen 17 unit SUBCUT BID RF: 0 Discontinued lisinopril 20 mg Tablet 20 mg PO DAILY RF: 0 Discharge Orders: Discharge Order (Routine); Ordered 12/16/19 Ordered By: Zaki Howard Admission Data Admit Date/Time: 12/11/19 16:15 Attending Provider: Zaki Howard Admit Provider: Raisa Osorio Primary Care Provider: Gem RICKETTS Other Providers: Raisa Osorio ; Laura Watts ; Juan Jose Brar ; Jim Ramesh
[2019-12-23 12:41] LABS: Albumin 3.7 g/dL (3.5-5.2); Albumin, CSF 68.9 mg/dL (8.0-42.0); IgG CSF 9.5 mg/dL (0.8-7.7); IgG Index, CSF 0.47 (<0.66); IgG Serum 1080 mg/dL (600-1640); Lyme DNA PCR CSF or Synovial Not detected (Not Detected); Lyme DNA Source CSF; Lyme IgG Band Pattern CSF DNR; Lyme IgG CSF NO BANDS DETECTED; Lyme IgM Band Pattern CSF DNR; Lyme IgM CSF NO BANDS DETECTED; Myelin Basic Protein <2.0 mcg/L (2.0-4.0); Synthesis Rate, IgG CSF -0.3 mg/24 h (-9.9-3.3); VDRL Qualitative CSF Nonreactive (Nonreactive)
== END 2019-12-16 18:30 | DRG 59 ==
LOC: ED 12:21 → SUATTDRO 16:15 → 2N 16:15